=== PATIENT | female | born 1970 | race African-American/Black ===

== ENCOUNTER 2017-10-21 09:53 | Inpatient (IN) | payer MEDICAID, OTHER ==
[2017-10-21] VITALS (11 sets, daily range): BP systolic 117–174; BP diastolic 51–101
[~2017-10-21] VITALS: Ht 165.1 cm; Wt 72.6 kg
[2017-10-21] MEDS ORDERED: Glycopyrrolate 0.2mg/ml 1ml Vial ONE (10:30)
[2017-10-21] MEDS ORDERED: LR 1000ml ONE (10:30)
[2017-10-21] MEDS ORDERED: Ketorolac 30mg Inj IV ONE (10:30)
[2017-10-21] MEDS ORDERED: Neostigmine 1mg/ml 10ml Inj ONE (10:30)
[2017-10-21] MEDS ORDERED: NS Irrig 1000ml ONE (10:30)
[2017-10-21] MEDS ORDERED: Zemuron 50mg/5ml Inj IV ONE (10:30)
[2017-10-21] MEDS ORDERED: Sterile Water Irrig 1000ml IRRIG ONE (10:30)
--- NOTE | 2017-10-21 10:33 | Emergency Room Report ---
History of Present Illness General Chief Complaint: Abdominal Pain Source: Patient Present Illness HPI Patient presents with abdominal pain. She has not moved her bowels since Friday. On Friday she ate chicken which is off of her diet and then Friday she ate a cheeseburger. She's been attempting to avoid red meat and also chicken. She sometimes has difficulty moving her bowels. The last time she with her bowels on Friday and it was hard and bumpy. She denies any blood. She's felt fullness in discomfort and throughout her abdomen. It comes in waves with crampiness. She also feels thirsty at this time and dizzy when she stands up. Her maternal grandmother had diabetes. She's not been diagnosed. She is on control pills for irregular menses. Her last period was 2 months ago and was heavy. She doesn't believe she is at this time. She denies any vaginal bleeding. There is no dysuria at this time. She did not take any medication for her abdominal pain. No chest pain, dyspnea, headache, rashes, extremity pain. Allergies: Coded Allergies: No Known Allergies (Unverified , 01/11/15) Patient History Past Medical History: see triage record Past Surgical History: other - breast augmentation Social History: Denies: smoking, alcohol use Social History Narrative with her mom Last Menstrual Period: 2 months- on bcp Now: No Reviewed Nursing Documentation: PMH: Agreed; PSxH: Agreed Nursing Documentation-PMH Past Medical History: No History, Except For Hx Cardiac Problems: Yes - murmur Review of Systems All Other Systems: negative except mentioned in HPI Physical Exam Vital Signs Date Time Temp Pulse Resp B/P (MAP) Pulse Ox O2 Delivery O2 Flow Rate FiO2 10/21/17 10:00 98.5 81 18 137/87 98 Room Air 98.4 Sp02 EP Interpretation: reviewed, normal General Appearance: well appearing, no apparent distress, GCS 15 Head: normocephalic Eyes: bilateral eye normal inspection, bilateral eye PERRL ENT: moist mucus membranes Neck: supple Respiratory: lungs clear, normal breath sounds Cardiovascular #1: regular rate, rhythm Cardiovascular #2: 2+ radial (R) Gastrointestinal: normal inspection, normal bowel sounds, no mass, non- distended, no guarding, no rebound, tenderness - diffuse Musculoskeletal: back normal, gait/station normal, normal range of motion Neurologic: alert, oriented x3 Skin: normal inspection, warm/dry Medical Decision Making Diagnostic Impression: Primary Impression: Acute appendicitis Qualified Codes: K35.80 - Unspecified acute appendicitis Additional Impressions: Abdominal pain Qualified Codes: R10.30 - Lower abdominal pain, unspecified UTI (urinary tract infection) Qualified Codes: N30.00 - Acute cystitis without hematuria ER Course Patient presents with abdominal pain. Differential includes diverticulitis, dehydration, diabetes, urinary tract infection, constipation amongst others. Evaluation will be with labs and abdominal x-ray. The patient be treated with IV hydration, Zofran and Toradol. She may need to have an enema. Labs sig for elevated WBC, min elevated lipase and pyuria. Rocephin ordered. Xrays paucity of gas. Patient improved with less nausea. However, now with RLQ guarding. Needs CT abdomen/pelvis. CT signed out to Dr. Tavarez. According to Dr. Tavarez, CT with appendicitis. Admit med. Laboratory Tests Test 10/21/17 10:04 10/21/17 11:07 Urine Color Pale yellow Urine Appearance Clear Urine pH 5 (4.5-8.0) Urine Specific [place] 1.010 (1.005-1.035) Urine Protein Negative (NEGATIVE) Urine Glucose (UA) Negative (NEGATIVE) Urine Ketones Negative (NEGATIVE) Urine Occult Blood 2+ (NEGATIVE) H Urine Nitrite Negative (NEGATIVE) Urine Bilirubin Negative (NEGATIVE) Urine Urobilinogen Normal MG/DL (0.0-1.0) Urine Leukocyte Esterase 2+ (NEGATIVE) H Urine RBC 2-4 /HPF (0 - 2) H Urine WBC 5-10 /HPF (0 - 2) H Urine Squamous Epithelial Cells Few /LPF (NONE/OCC) Urine Bacteria Few /HPF (NONE) Urine HCG, Qualitative Negative (NEGATIVE) White Blood Count 12.7 K/UL (4.8-10.8) H Red Blood Count 5.11 M/UL (4.20-5.40) Hemoglobin 13.2 G/DL (12.0-16.0) Hematocrit 40.2 % (37.0-47.0) Mean Corpuscular Volume 79 FL (80-99) L Mean Corpuscular Hemoglobin 25.9 PG (27.0-31.0) L Mean Corpuscular Hemoglobin Concent 32.9 G/DL (32.0-36.0) Red Cell Distribution Width 12.9 % (11.6-14.8) Platelet Count 293 K/UL (150-450) Mean Platelet Volume 9.6 FL (6.5-10.1) Neutrophils (%) (Auto) % (45.0-75.0) Lymphocytes (%) (Auto) % (20.0-45.0) Monocytes (%) (Auto) % (1.0-10.0) Eosinophils (%) (Auto) % (0.0-3.0) Basophils (%) (Auto) % (0.0-2.0) Differential Total Cells Counted 100 Neutrophils % (Manual) 88 % (45-75) H Lymphocytes % (Manual) 8 % (20-45) L Monocytes % (Manual) 4 % (1-10) Eosinophils % (Manual) 0 % (0-3) Basophils % (Manual) 0 % (0-2) Band Neutrophils 0 % (0-8) Platelet Estimate Adequate Platelet Morphology Normal Microcytosis 1+ Prothrombin Time 9.9 SEC (9.30-11.50) Prothrombin Time INR 0.9 (0.9-1.1) PTT 25 SEC (23-33) Sodium Level 136 MMOL/L (136-145) Potassium Level 3.7 MMOL/L (3.5-5.1) Chloride Level 100 MMOL/L (98-107) Carbon Dioxide Level 26 MMOL/L (21-32) Anion Gap 10 mmol/L (5-15) Blood Urea Nitrogen 8 mg/dL (7-18) Creatinine 1.1 MG/DL (0.55-1.30) Estimate Glomerular Filtration Rate > 60 mL/min (>60) Glucose Level 99 MG/DL (74-106) Calcium Level 9.4 MG/DL (8.5-10.1) Total Bilirubin 0.5 MG/DL (0.2-1.0) Aspartate Amino Transferase (AST) 13 U/L (15-37) L Alanine Aminotransferase (ALT) 20 U/L (12-78) Alkaline Phosphatase 57 U/L (46-116) Total Protein 8.7 G/DL (6.4-8.2) H Albumin 3.8 G/DL (3.4-5.0) Globulin 4.9 g/dL Albumin/Globulin Ratio 0.8 (1.0-2.7) L Lipase 414 U/L (73-393) H Other X-Ray Diagnostic Results Other X-Ray Diagnostic Results : X-Ray ordered: abd # of Views/Limited Vs Complete: 1 View Indication: Pain EP Interpretation: Yes Interpretation: nonspecific bowel gas, no sbo, other - paucity of gas CT/MRI/US Diagnostic Results CT/MRI/US Diagnostic Results : Imaging Test Ordered: abd/pelvis Impression Impression: Positive for uncomplicated acute appendicitis Enlarged fibroid uterus Right-sided posterior basilar dependent atelectatic changes, bilateral breast implants are incidentally noted Status: improved Disposition: ADMITTED INPATIENT Condition: Serious Keon Farias M.D. Oct 21, 2017 10:33
[2017-10-21 10:36] LABS: APPEARANCE,URINE CLEAR; BILIRUBIN, URINE NEGATIVE (NEGATIVE); COLOR,URINE PALE YELLOW; GLUCOSE, URINE (UA) NEGATIVE (NEGATIVE); KETONES,URINE NEGATIVE (NEGATIVE); LEUKOCYTE ESTERASE ,URINE 2+ (NEGATIVE); NITRITE,URINE NEGATIVE (NEGATIVE); PH,URINE 5 (4.5-8.0); PROTEIN,URINE NEGATIVE (NEGATIVE); UROBILINOGEN,URINE NORMAL MG/DL (0.0-1.0)
[2017-10-21 11:14] LABS: HEMATOCRIT 40.2 % (37.0-47.0); HEMOGLOBIN 13.2 G/DL (12.0-16.0); MEAN CORPUSCULAR VOLUME 79 FL (80-99); PLATELET COUNT 293 K/UL (150-450); RED BLOOD COUNT 5.11 M/UL (4.20-5.40); RED CELL DISTRIBUTION WIDTH 12.9 % (11.6-14.8); WHITE BLOOD COUNT 12.7 K/UL (4.8-10.8)
[2017-10-21 11:28] LABS: ANION GAP 10 mmol/L (5-15); BLOOD UREA NITROGEN 8 mg/dL (7-18); CALCIUM 9.4 MG/DL (8.5-10.1); CARBON DIOXIDE 26 MMOL/L (21-32); CHLORIDE 100 MMOL/L (98-107); CREATININE 1.1 MG/DL (0.55-1.30); POTASSIUM 3.7 MMOL/L (3.5-5.1); SODIUM 136 MMOL/L (136-145)
[2017-10-21 11:30] LABS: INR 0.9 (0.9-1.1)
[2017-10-21 11:33] LABS: ALANINE AMINOTRANSFERASE 20 U/L (12-78); ALBUMIN 3.8 G/DL (3.4-5.0); ALBUMIN/GLOBULIN RATIO 0.8 (1.0-2.7); ALKALINE PHOSPHATASE 57 U/L (46-116); ASPARTATE AMINO TRANSFERASE 13 U/L (15-37); BILIRUBIN,TOTAL 0.5 MG/DL (0.2-1.0)
--- NOTE | 2017-10-21 11:38 | Diagnostic Imaging Report ---
Indication: Abdominal pain Technique: Supine view of the abdomen Comparison: none Findings: Evaluation is limited by body habitus, using portable technique. Bowel gas pattern is grossly unremarkable. Considerable gas and stool seen in prominent but not frankly dilated colon. No small bowel distention. No unusual masses or calcifications Impression: Limited. No gross acute abnormality
[2017-10-21] MEDS ORDERED: Gastrograffin 30ml ORAL PRN (13:15)
[2017-10-21] MEDS ORDERED: Isovue-300 100ml vial INJ PRN (13:15)
[2017-10-21] MEDS ORDERED: ONDANSETRON ODT4 MG BC (14:57)
[2017-10-21] MEDS ORDERED: NITROFURANTOIN100 M2 ORAL (14:57)
[2017-10-21] MEDS ORDERED: TYLENOL325 MG ORAL (14:57)
[2017-10-21] MEDS ORDERED: LACTULOSE20 GM/301 ORAL (14:57)
[2017-10-21] MEDS ORDERED: Piperacillin/Tazobactam 3.375 GM in NS 110 ML IVPB ONE (16:15)
--- NOTE | 2017-10-21 16:18 | Diagnostic Imaging Report ---
Clinical Indication: Abdominal pain Technique: Patient given oral contrast. IV administration nonionic contrast. Venous phase spiral acquisition obtained through the abdomen and pelvis. Multiplanar reconstructions were generated. Total dose length product 826.64 mGycm. CTDIvol(s) 14.36,13.24 mGy. Dose reduction achieved using automated exposure control Comparison: none Findings: There are bilateral breast implants. The lung bases demonstrate posterior dependent atelectatic changes on the right. The bones are unremarkable. The appendix is enlarged, filled with fluid, measures 12 mm in diameter. There is a with local infiltration of the periappendiceal fat. A small amount of fluid is seen adjacent to the proximal ascending colon. There is also trace free pelvic fluid. No discrete focal fluid collections and no extraluminal gas are evident. Contrast is seen throughout the entirety of the small bowel and well into the colon. There is no evidence of diverticulosis or diverticulitis. No small bowel distention or small bowel wall thickening. No free intraperitoneal air. The liver, gallbladder, bile ducts, pancreas, spleen, adrenals, kidneys are all unremarkable. No retroperitoneal or mesenteric mass or adenopathy. The uterus is enlarged, demonstrating multiple enhancing masses. The ovaries are unremarkable. The bladder is unremarkable. Impression: Positive for uncomplicated acute appendicitis Enlarged fibroid uterus Right-sided posterior basilar dependent atelectatic changes, bilateral breast implants are incidentally noted Findings discussed by phone with Dr. Tavarez in the emergency room at the time of interpretation The CT scanner at [facility] is accredited by the [employer] and the scans are performed using protocols designed to limit radiation exposure to as low as reasonably achievable to attain images of sufficient resolution adequate for diagnostic evaluation.
--- NOTE | 2017-10-21 17:43 | Pre-Procedure Note/Attestation ---
Pre-Procedure Note/Attestation Complete Prior to Procedure Planned Procedure: not applicable Procedure Narrative: Laparoscopic Appendectomy possible open Appendectomy Indications for Procedure Pre-Operative Diagnosis: Acute appendicitis Attestation I attest that I discussed the nature of the procedure; its benefits; risks and complications; and alternatives (and the risks and benefits of such alternatives ), prior to the procedure, with the patient (or the patient's legal home office representative). I attest that, if there was a reasonable possibility of needing a blood transfusion, the patient (or the patient's legal home office representative) was given the [facility] standardized written summary, pursuant to the [place] Keisha Blood Safety Act ([place] Health and Safety Code # 1645, as amended). I attest that I re-evaluated the patient just prior to the surgery and that there has been no change in the patient's H&P, except as documented below: Rajni Leone MD Oct 21, 2017 17:43
[2017-10-21] MEDS ORDERED: Bupivacaine 0.25% Inj 30ml INJ ONE (18:02)
[2017-10-21] MEDS ORDERED: Bacitracin 50000 Units Vial ONE (18:02)
[2017-10-21] MEDS ORDERED: Lidocaine 1% MPF 10mg/ml 5ml ONE ×2 (18:08→18:27)
[2017-10-21] MEDS ORDERED: Propofol 200mg/20ml IV ONE ×2 (18:08→18:27)
[2017-10-21] MEDS ORDERED: Dexamethasone 4mg/ml vial ONE ×2 (18:08→18:27)
[2017-10-21] MEDS ORDERED: Sodium Chloride 10ml vial INJ ONE ×2 (18:08→18:27)
[2017-10-21] MEDS ORDERED: LR 1000ml 1,000 ML IVLG SCH (18:10)
[2017-10-21] MEDS ORDERED: Metoclopramide 10mg/2ml Inj IVP PRN (18:15)
[2017-10-21] MEDS ORDERED: DiphenhydrAMINE 50mg/ml Inj IVP PRN (18:15)
[2017-10-21] MEDS ORDERED: HYDROcodone/Acetamin 7.5/325 tab ORAL PRN (18:15)
[2017-10-21] MEDS ORDERED: fentaNYL 100 mcg/2 mL IV PRN (18:15)
[2017-10-21] MEDS ORDERED: Atropine Inj 1mg/10ml Syr IV PRN (18:15)
[2017-10-21] MEDS ORDERED: oxyCODONE HCL/Acetaminophen 5/325mg ORAL PRN (18:15)
[2017-10-21] MEDS ORDERED: Ketorolac 30mg Inj IV PRN ×2 (18:15)
[2017-10-21] MEDS ORDERED: Acetaminophen (Non formulary) 100 ML IV ONE (18:15)
[2017-10-21] MEDS ORDERED: Midazolam 2mg/2ml Inj IVP PRN (18:15)
[2017-10-21] MEDS ORDERED: Norco 5mg/325mg tab ORAL PRN (18:15)
[2017-10-21] MEDS ORDERED: Labetalol 5mg/ml 20ml vial IV PRN (18:15)
[2017-10-21] MEDS ORDERED: Hydromorphone 0.5mg/0.5ml inj IVP PRN (18:15)
[2017-10-21] MEDS ORDERED: LORazepam Inj 2mg/ml 1ml IV PRN (18:15)
--- NOTE | 2017-10-21 18:17 | Anethesia Preoperative Eval ---
Anesthesia Pre-op PMH/ROS General Date of Evaluation: Oct 21, 2017 Time of Evaluation: 18:22 Anesthesiologist: Mone ASA Score: ASA 2 - Emergency Mallampati Score Class I : Soft palate, uvula, fauces, pillars visible Class II: Soft palate, uvula, fauces visible Class III: Soft palate, base of uvula visible Class IV: Only hard plate visible Mallampati Classification: Class I Surgeon: Sulema Diagnosis: Acute Appendicitis Surgical Procedure: Laparoscopic Appendectomy Anesthesia History: none Family History: no anesthesia problems Allergies: Coded Allergies: No Known Allergies (Unverified , 01/11/15) Medications: see eMAR Past Medical History Cardiovascular: Reports: HTN Other: obesity Anesthesia Pre-op Phys. Exam Physician Exam Last Vital Signs Date Time Temp Pulse Resp B/P (MAP) Pulse Ox O2 Delivery O2 Flow Rate FiO2 10/21/17 17:12 95 16 146/75 100 Room Air 10/21/17 11:33 98.5 Constitutional: NAD Neurologic: CN 2-12 intact Cardiovascular: RRR Respiratory: CTA Gastrointestinal: S/NT/ND Airway Exam Mallampati Score: Class I MO: full ROM: full Teeth: intact Anesthesia Pre-op A/P Labs Hematology Test 10/21/17 11:07 White Blood Count 12.7 K/UL (4.8-10.8) H Red Blood Count 5.11 M/UL (4.20-5.40) Hemoglobin 13.2 G/DL (12.0-16.0) Hematocrit 40.2 % (37.0-47.0) Mean Corpuscular Volume 79 FL (80-99) L Mean Corpuscular Hemoglobin 25.9 PG (27.0-31.0) L Mean Corpuscular Hemoglobin Concent 32.9 G/DL (32.0-36.0) Red Cell Distribution Width 12.9 % (11.6-14.8) Platelet Count 293 K/UL (150-450) Mean Platelet Volume 9.6 FL (6.5-10.1) Neutrophils (%) (Auto) % (45.0-75.0) Lymphocytes (%) (Auto) % (20.0-45.0) Monocytes (%) (Auto) % (1.0-10.0) Eosinophils (%) (Auto) % (0.0-3.0) Basophils (%) (Auto) % (0.0-2.0) Differential Total Cells Counted 100 Neutrophils % (Manual) 88 % (45-75) H Lymphocytes % (Manual) 8 % (20-45) L Monocytes % (Manual) 4 % (1-10) Eosinophils % (Manual) 0 % (0-3) Basophils % (Manual) 0 % (0-2) Band Neutrophils 0 % (0-8) Platelet Estimate Adequate Platelet Morphology Normal Microcytosis 1+ Coagulation Test 10/21/17 11:07 Prothrombin Time 9.9 SEC (9.30-11.50) Prothromb Time International Ratio 0.9 (0.9-1.1) Activated Partial Thromboplast Time 25 SEC (23-33) Chemistry Test 10/21/17 11:07 Sodium Level 136 MMOL/L (136-145) Potassium Level 3.7 MMOL/L (3.5-5.1) Chloride Level 100 MMOL/L (98-107) Carbon Dioxide Level 26 MMOL/L (21-32) Anion Gap 10 mmol/L (5-15) Blood Urea Nitrogen 8 mg/dL (7-18) Creatinine 1.1 MG/DL (0.55-1.30) Estimat Glomerular Filtration Rate > 60 mL/min (>60) Glucose Level 99 MG/DL (74-106) Calcium Level 9.4 MG/DL (8.5-10.1) Total Bilirubin 0.5 MG/DL (0.2-1.0) Aspartate Amino Transf (AST/SGOT) 13 U/L (15-37) L Alanine Aminotransferase (ALT/SGPT) 20 U/L (12-78) Alkaline Phosphatase 57 U/L (46-116) Total Protein 8.7 G/DL (6.4-8.2) H Albumin 3.8 G/DL (3.4-5.0) Globulin 4.9 g/dL Albumin/Globulin Ratio 0.8 (1.0-2.7) L Lipase 414 U/L (73-393) H Urine Test Test 10/21/17 10:04 Urine HCG, Qualitative Negative (NEGATIVE) Risk Assessment & Plan Assessment: ASA 2E Plan: GA, BIS, GlideScope Pre-Antibiotics Dru Gram Ancef IV Given Within 1 Hr of Incision: Yes Time Given: 18:36 Shore,Yanick MD Oct 21, 2017 18:17
--- NOTE | 2017-10-21 19:52 | Brief Operative Note ---
Immediate Post Operative Note Operative Note Pre-op Diagnosis: Acute appendicitis Procedure: Laparoscopic Appendectomy Post-op Diagnosis: Acute Appendicitis Post-op Diagnosis: same as pre-op Surgeon: Christina [facility] Family Social Worker: none Anesthesiologist: Dr. Moran Anesthesia: general Specimen: yes Complications: none Condition: stable Fluids: per anesthesialogist Estimated Blood Loss: minimal Drains: none Implant(s) used?: No Rajni Leone MD Oct 21, 2017 19:52
[2017-10-21] MEDS ORDERED: Acetaminophen 650 MG SUPP RECTAL PRN (20:00)
--- NOTE | 2017-10-21 20:04 | Immediate Post-Op Evaluation ---
Immediate Post-Op Evalulation Immediate Post-Op Evalulation Procedure: Laparoscopic Appendectomy Date of Evaluation: Oct 21, 2017 Time of Evaluation: 10:13 IV Fluids: 300 LR Blood Products: 0 Estimated Blood Loss: 20 Urinary Output: 0 Blood Pressure Systolic: 174 Blood Pressure Diastolic: 101 Pulse Rate: 69 Respiratory Rate: 16 O2 Sat by Pulse Oximetry: 100 Temperature (Fahrenheit): 97.2 Pain Score (1-10): 2 Nausea: No Vomiting: No Complications 0 Patient Status: awake, reacts, patent, extubated, none Hydration Status: adequate Dru Gram Ancef IV Given Within 1 Hr of Incision: Yes Time Given: 18:36 Yanick Shore MD Oct 21, 2017 20:04
[2017-10-21] MEDS: Morphine Sulfate 4mg/ml Inj IVP SCH (21:00)
[2017-10-21] MEDS: Metoclopramide 10mg/2ml Inj IVP SCH (21:30)
[2017-10-21] MEDS: D5 1/2NS w/KCl 20mEq 1,000 ML IV SCH (22:11)
--- NOTE | 2017-10-21 22:59 | Operative Note - Dictated ---
DATE OF OPERATION: 10/21/2017 PREOPERATIVE DIAGNOSIS: Acute appendicitis. POSTOPERATIVE DIAGNOSIS: Acute appendicitis. OPERATION: Laparoscopy appendectomy. COMPLICATIONS: None. SURGEON: Rajni Leone M.D. ROASTERMAN: None. ANESTHESIA: General with endotracheal tube. ANESTHESIOLOGIST: Yanick Shore M.D. INDICATION: This is a 47-year-old female, who presented with two days history of abdominal pain. She stated that the pain was initially periumbilical and then it localized at right lower quadrant. This pain was associated with nausea and vomiting. Physical examination showed tenderness, rebound tenderness, and guarding at the right lower quadrant. CBC showed a WBC of 12,700 with a left shift. CAT scan of the abdomen was interpreted as acute appendicitis. DESCRIPTION OF PROCEDURE: The patient was placed supine on the operating table and after general anesthesia with endotracheal tube, the abdomen was properly prepped and draped. Initially, a small incision was given above the umbilicus through which a Veress needle was introduced into the intraperitoneal cavity. This cavity was insufflated up to 15 mmHg and then the Veress needle was removed and a 5 mm trocar was placed in the intraperitoneal cavity through the incision above the umbilicus. The laparoscope and camera was introduced into the intraperitoneal cavity through the trocar above the umbilicus. Under direct vision, a 5 mm trocar was placed at the suprapubic area and a 12 mm trocar was placed at the left lower quadrant of the abdomen. Initially, rapid exploration was performed, which showed the diaphragms to be normal. The part of the stomach, which could be seen was normal. The liver and gallbladder was normal. The bowels were covered with omentum. The patient had a very large fibromatosis of uterus. Exploration of the right lower quadrant cavity was performed and finally, the appendix was identified, which was retrocecal and retroperitoneal. The appendix was severely inflamed. The appendix was grasped with a grasper and gradually the dissection was started, but the appendix was . Gradually, the mesoappendix was dissected and was ligated and transected with the OBI stapler. The part of the appendix was removed and it was noticed that it was too small and definitely some parts were left behind, so further exploration was performed and the stump of the appendix was identified and blunt dissection was performed and a large piece of the appendix was gradually dissected and isolated. Finally, at the base, it was transligated and transected with the OBI stapler. The appendix was removed from the intraperitoneal cavity through the incision at the left lower quadrant of the abdomen. After removal of the appendix, the intra-abdominal cavity especially the right lower quadrant and the pelvis was thoroughly irrigated with antibiotic solution. Another exploration was performed and there was no complication or bleeding. The trocars were removed under direct vision. The incisions were infiltrated with total of 30 mL of Marcaine 0.25%. The subcutaneous tissue was approximated with 4-0 chromic and the skin incisions were approximated with running subcuticular suture of 4-0 chromic. The patient tolerated the procedure very well and was transferred to recovery room in stable condition and extubated. The sponge and needle count correct. Estimated blood loss 5 mL. Condition of the patient at the end of the procedure was stable. Rajni Leone M.D. DR: WESTON JOB#: [id number] CC:
[2017-10-22] MEDS: Piperacillin/Tazobactam 3.375 GM in D5W 110 ML IVPB SCH ×3 (00:06→16:42)
[2017-10-22] MEDS: Morphine Sulfate 4mg/ml Inj IVP SCH ×6 (01:05→21:43)
[2017-10-22 04:00] VITALS: BP 135/81
[2017-10-22] MEDS: Metoclopramide 10mg/2ml Inj IVP SCH ×3 (05:36→21:39)
[2017-10-22 08:00] VITALS: BP 143/75
[2017-10-22 08:17] LABS: HEMATOCRIT 33.4 % (37.0-47.0); HEMOGLOBIN 10.7 G/DL (12.0-16.0); MEAN CORPUSCULAR VOLUME 81 FL (80-99); PLATELET COUNT 251 K/UL (150-450); RED BLOOD COUNT 4.14 M/UL (4.20-5.40)
[2017-10-22 08:35] LABS: ANION GAP 11 mmol/L (5-15); BLOOD UREA NITROGEN 7 mg/dL (7-18); CALCIUM 8.6 MG/DL (8.5-10.1); CARBON DIOXIDE 24 MMOL/L (21-32); CHLORIDE 103 MMOL/L (98-107); CREATININE 1.3 MG/DL (0.55-1.30); POTASSIUM 4.2 MMOL/L (3.5-5.1); SODIUM 137 MMOL/L (136-145)
--- NOTE | 2017-10-22 10:41 | GI Initial Consult Note ---
History of Present Illness General Date patient seen: Oct 22, 2017 Time patient seen: 10:00 Reason for Hospitalization: Abdominal Pain Referring physician: MISSY VANG Reason for Consultation: ABDOMINAL PAIN Present Illness HPI Patient presents with abdominal pain. She has not moved her bowels since Friday. On Friday she ate chicken which is off of her diet and then Friday she ate a cheeseburger. She's been attempting to avoid red meat and also chicken. She sometimes has difficulty moving her bowels. The last time she with her bowels on Friday and it was hard and bumpy. She denies any blood. She's felt fullness in discomfort and throughout her abdomen. It comes in waves with crampiness. She also feels thirsty at this time and dizzy when she stands up. Her maternal grandmother had diabetes. She's not been diagnosed. She is on control pills for irregular menses. Her last period was 2 months ago and was heavy. She doesn't believe she is at this time. She denies any vaginal bleeding. There is no dysuria at this time. She did not take any medication for her abdominal pain. No chest pain, dyspnea, headache, rashes, extremity pain. GI consulted for abdominal pain, post operative N/V, elevated lipase. Pt seen , awake A&Ox4 NAD c/o of slight pain 2/10 to surgical incision site. Now s/p lap appy. Denies any N/V/D at this time. On clear liquid diet, tolerating. Patient presents today with anemia and elevated lipase levels. No known history of endoscopy / colonoscopy. Med list reviewed/reconciled: Yes Allergies: Coded Allergies: No Known Allergies (Unverified , 01/11/15) Patient History History Provided By: Patient, Medical Record PMH Narrative Past Medical History: see triage record Past Surgical History: other - breast augmentation Social History: Denies: smoking, alcohol use Social History Narrative with her mom Last Menstrual Period: 2 months- on bcp Now: No Reviewed Nursing Documentation: PMH: Agreed; PSxH: Agreed Nursing Documentation-PM Past Medical History: No History, Except For Hx Cardiac Problems: Yes - murmur Social History: Reports: alcohol use Review of Systems All Other Systems: negative except mentioned in HPI Physical Exam Vital Signs Date Time Temp Pulse Resp B/P (MAP) Pulse Ox O2 Delivery O2 Flow Rate FiO2 10/21/17 10:00 98.5 81 18 137/87 98 Room Air 98.4 10/21/17 20:02 8.0 Sp02 EP Interpretation: reviewed, normal Labs Laboratory Tests Test 10/21/17 11:07 10/22/17 07:49 White Blood Count 12.7 K/UL (4.8-10.8) H 12.0 K/UL (4.8-10.8) H Red Blood Count 5.11 M/UL (4.20-5.40) 4.14 M/UL (4.20-5.40) L Hemoglobin 13.2 G/DL (12.0-16.0) 10.7 G/DL (12.0-16.0) L Hematocrit 40.2 % (37.0-47.0) 33.4 % (37.0-47.0) L Mean Corpuscular Volume 79 FL (80-99) L 81 FL (80-99) Mean Corpuscular Hemoglobin 25.9 PG (27.0-31.0) L 25.9 PG (27.0-31.0) L Mean Corpuscular Hemoglobin Concent 32.9 G/DL (32.0-36.0) 32.2 G/DL (32.0-36.0) Red Cell Distribution Width 12.9 % (11.6-14.8) 13.0 % (11.6-14.8) Platelet Count 293 K/UL (150-450) 251 K/UL (150-450) Mean Platelet Volume 9.6 FL (6.5-10.1) 9.8 FL (6.5-10.1) Neutrophils (%) (Auto) % (45.0-75.0) % (45.0-75.0) Lymphocytes (%) (Auto) % (20.0-45.0) % (20.0-45.0) Monocytes (%) (Auto) % (1.0-10.0) % (1.0-10.0) Eosinophils (%) (Auto) % (0.0-3.0) % (0.0-3.0) Basophils (%) (Auto) % (0.0-2.0) % (0.0-2.0) Differential Total Cells Counted 100 100 Neutrophils % (Manual) 88 % (45-75) H 89 % (45-75) H Lymphocytes % (Manual) 8 % (20-45) L 6 % (20-45) L Monocytes % (Manual) 4 % (1-10) 5 % (1-10) Eosinophils % (Manual) 0 % (0-3) 0 % (0-3) Basophils % (Manual) 0 % (0-2) 0 % (0-2) Band Neutrophils 0 % (0-8) 0 % (0-8) Platelet Estimate Adequate Adequate Platelet Morphology Normal Normal Microcytosis 1+ Prothrombin Time 9.9 SEC (9.30-11.50) Prothromb Time International Ratio 0.9 (0.9-1.1) Activated Partial Thromboplast Time 25 SEC (23-33) Sodium Level 136 MMOL/L (136-145) 137 MMOL/L (136-145) Potassium Level 3.7 MMOL/L (3.5-5.1) 4.2 MMOL/L (3.5-5.1) Chloride Level 100 MMOL/L (98-107) 103 MMOL/L (98-107) Carbon Dioxide Level 26 MMOL/L (21-32) 24 MMOL/L (21-32) Anion Gap 10 mmol/L (5-15) 11 mmol/L (5-15) Blood Urea Nitrogen 8 mg/dL (7-18) 7 mg/dL (7-18) Creatinine 1.1 MG/DL (0.55-1.30) 1.3 MG/DL (0.55-1.30) Estimat Glomerular Filtration Rate > 60 mL/min (>60) 52.8 mL/min (>60) Glucose Level 99 MG/DL (74-106) 162 MG/DL (74-106) H Calcium Level 9.4 MG/DL (8.5-10.1) 8.6 MG/DL (8.5-10.1) Total Bilirubin 0.5 MG/DL (0.2-1.0) Aspartate Amino Transf (AST/SGOT) 13 U/L (15-37) L Alanine Aminotransferase (ALT/SGPT) 20 U/L (12-78) Alkaline Phosphatase 57 U/L (46-116) Total Protein 8.7 G/DL (6.4-8.2) H Albumin 3.8 G/DL (3.4-5.0) Globulin 4.9 g/dL Albumin/Globulin Ratio 0.8 (1.0-2.7) L Lipase 414 U/L (73-393) H 182 U/L (73-393) Hypochromasia 1+ General Appearance: well appearing, no apparent distress, alert Head: normocephalic EENT: PERRL/EOMI, normal ENT inspection Neck: supple Respiratory: normal breath sounds, no respiratory distress Cardiovascular: normal rate Gastrointestinal: normal inspection, non tender, soft, normal bowel sounds, non -distended, other - surgical incision x 3 Rectal: deferred Genitourinary: no CVA tenderness Musculoskeletal: normal inspection, back normal Neurologic: normal inspection, alert, oriented x3, responsive Psychiatric: normal inspection, judgement/insight normal, memory normal Skin: normal inspection, normal color, no rash, warm/dry, palpation normal, well hydrated Lymphatic: normal inspection, no adenopathy Current Medications Current Medications Medications (Trade) Dose Ordered Sig/Janet Route PRN Reason Start Time Stop Time Status Last Admin Dose Admin Acetaminophen (Tylenol) 650 mg Q4H PRN RECTAL Mild Pain (Pain Scale 1-3) 10/21/17 20:00 11/20/17 19:59 Dextrose/ Electrolytes 1,000 ml @ 100 mls/hr Q10H IV 10/21/17 22:00 11/20/17 21:59 10/21/17 22:11 Diatrizoate Meglum/ Diatrizoate Sod (Gastrografin) 30 ml NOW PRN ORAL Radiology Procedure 10/21/17 13:15 Enoxaparin Sodium (Lovenox) 40 mg Q24H SUBQ 10/22/17 21:00 11/21/17 20:59 Metoclopramide HCl (Reglan) 10 mg EVERY 8 HOURS IVP 10/21/17 22:00 11/20/17 21:59 10/22/17 05:36 Morphine Sulfate (Morphine Sulfate) 4 mg EVERY 4 HOURS IVP 10/21/17 21:00 10/28/17 20:59 10/22/17 09:03 Piperacillin Sod/ Tazobactam Sod 3.375 gm/Dextrose 110 ml @ 27.5 mls/hr Q8H IVPB 10/22/17 00:00 10/29/17 00:00 10/22/17 09:03 GI: Plan Problems: (1) Anemia (2) Acute appendicitis (3) Abdominal pain Plan on clear liquid diet, tolerating no post operative N/V pain 2/10 at surgical sites, minimal drainage elevated lipase >> now normal symptomatic treatment diet per surgery anemia work up OB stool r/o GI bleed monitor H&H, prn transfusions bowel regime pain mgmt zofran prn dressing change prn ppi fu labs IS teaching recommend patient for initial colonoscopy next year at age 48 [address] Min. Thank you for this patient referral, we will follow. The patient was seen and examined at bedside and all new and available data was reviewed in the patients chart. I agree with the above findings, impression and plan. (Patient seen earlier today. Signature stamp does not reflect patient encounter time.). - MD Andie Aguayo AnhLeigh GAGE Oct 22, 2017 10:41
[2017-10-22 11:50] VITALS: BP 141/77
--- NOTE | 2017-10-22 13:10 | General Surgery Progress Note ---
General Surgery-Progress Note Subjective Procedure Performed Laparoscopic Appendectomy Symptoms: improved Objective Last 24 Hour Vital Signs Date Time Temp Pulse Resp B/P (MAP) Pulse Ox O2 Delivery O2 Flow Rate FiO2 10/22/17 11:50 97.4 62 20 141/77 99 Room Air 97.4 10/22/17 08:00 97.6 61 20 143/75 98 Room Air 97.6 10/22/17 04:00 97.8 77 18 135/81 96 Room Air 97.8 10/21/17 23:58 97.9 84 18 153/92 96 Room Air 97.9 10/21/17 21:10 98.1 76 17 150/88 99 Nasal Cannula 2.0 98.1 10/21/17 20:45 97.6 59 16 162/88 100 Nasal Cannula 2.0 97.6 10/21/17 20:39 57 16 166/89 100 Nasal Cannula 2.0 10/21/17 20:29 63 16 155/85 100 Nasal Cannula 2.0 10/21/17 20:12 63 16 148/85 100 Nasal Cannula 2.0 10/21/17 20:07 59 16 143/81 100 Simple Mask 8.0 10/21/17 20:04 207.0 69 16 100 10/21/17 20:02 97.2 70 16 174/101 100 Simple Mask 8.0 97.2 10/21/17 18:14 98.5 95 16 146/75 100 Room Air 98.5 10/21/17 17:12 95 16 146/75 100 Room Air I&O Intake and Output 10/21/17 10/22/17 19:00 07:00 Intake Total 1000 ml 810.0 ml Output Total 870 ml Balance 1000 ml -60.0 ml Intake Oral 0 ml 0 ml IV Total 1000 ml 810.0 ml Output Urine Total 850 ml Estimated Blood Loss 20 ml # Voids 1 Respiratory: clear Abdomen: soft, tenderness, absent bowel sounds Extremities: no tenderness Laboratory Tests Test 10/22/17 07:49 White Blood Count 12.0 K/UL (4.8-10.8) H Red Blood Count 4.14 M/UL (4.20-5.40) L Hemoglobin 10.7 G/DL (12.0-16.0) L Hematocrit 33.4 % (37.0-47.0) L Mean Corpuscular Volume 81 FL (80-99) Mean Corpuscular Hemoglobin 25.9 PG (27.0-31.0) L Mean Corpuscular Hemoglobin Concent 32.2 G/DL (32.0-36.0) Red Cell Distribution Width 13.0 % (11.6-14.8) Platelet Count 251 K/UL (150-450) Mean Platelet Volume 9.8 FL (6.5-10.1) Neutrophils (%) (Auto) % (45.0-75.0) Lymphocytes (%) (Auto) % (20.0-45.0) Monocytes (%) (Auto) % (1.0-10.0) Eosinophils (%) (Auto) % (0.0-3.0) Basophils (%) (Auto) % (0.0-2.0) Differential Total Cells Counted 100 Neutrophils % (Manual) 89 % (45-75) H Lymphocytes % (Manual) 6 % (20-45) L Monocytes % (Manual) 5 % (1-10) Eosinophils % (Manual) 0 % (0-3) Basophils % (Manual) 0 % (0-2) Band Neutrophils 0 % (0-8) Platelet Estimate Adequate Platelet Morphology Normal Hypochromasia 1+ Sodium Level 137 MMOL/L (136-145) Potassium Level 4.2 MMOL/L (3.5-5.1) Chloride Level 103 MMOL/L (98-107) Carbon Dioxide Level 24 MMOL/L (21-32) Anion Gap 11 mmol/L (5-15) Blood Urea Nitrogen 7 mg/dL (7-18) Creatinine 1.3 MG/DL (0.55-1.30) Estimat Glomerular Filtration Rate 52.8 mL/min (>60) Glucose Level 162 MG/DL (74-106) H Calcium Level 8.6 MG/DL (8.5-10.1) Lipase 182 U/L (73-393) Assessment Post-op Diagnosis Acute Appendicitis Plan Additional Comments continue current treatment Rajni Leone MD Oct 22, 2017 13:10
[2017-10-22] MEDS: Docusate Sod/Senna tab ORAL SCH ×2 (13:57→21:39)
--- NOTE | 2017-10-22 14:22 | 48 Hour Post Anesthesia Eval ---
Post Anesthesia Evaluation Procedure: Laparoscopic Appendectomy Date of Evaluation: Oct 22, 2017 Time of Evaluation: 14:21 Blood Pressure Systolic: 144 0: 74 Pulse Rate: 75 Respiratory Rate: 15 Temperature (Fahrenheit): 97.5 O2 Sat by Pulse Oximetry: 100 Airway: patent Nausea: No Vomiting: No Hydration Status: adequate Cardiopulmonary Status: stable Mental Status/LOC: patient returned to baseline Post-Anesthesia Complications: stable Follow-up care needed: N/A Thuy Ashraf CRNA Oct 22, 2017 14:22
[2017-10-22 16:00] VITALS: BP 135/81
--- NOTE | 2017-10-22 17:15 | Consultation ---
DATE OF CONSULTATION: 10/22/2017 INFECTIOUS DISEASE CONSULTATION CONSULTING PHYSICIAN: Bishnu Aceves M.D. PRIMARY ATTENDING PHYSICIAN: Rajni Leone M.D. REASON FOR CONSULTATION: Acute appendicitis. HISTORY OF PRESENT ILLNESS: This is a 47-year-old female admitted yesterday complaining of abdominal pain. The pain was periumbilical at the beginning that was localized to right lower quadrant. Mild leukocytosis. CT scan of the abdomen and pelvis showed acute appendicitis and the patient had laparoscopic appendectomy yesterday and today has no complaint, using clear-liquid diet. PAST MEDICAL HISTORY: Insignificant. MEDICATIONS: Enoxaparin, Zosyn, metoclopramide, morphine, Tylenol. ALLERGIES: No known drug allergies. SOCIAL HISTORY: Single. She has no child. No history of alcohol, drug abuse, or smoking. REVIEW OF SYSTEMS: She has no complaint today. Tolerating clear-liquid diet. PHYSICAL EXAMINATION: VITAL SIGNS: Temperature 97.4, pulse 62, blood pressure 141/77. GENERAL APPEARANCE: No acute distress. Awake, alert, well developed. HEAD AND NECK: [place] conjunctivae. No oral lesion. HEART: S1, S2. Regular. LUNGS: Clear. ABDOMEN: Soft, nontender. EXTREMITIES: She has no edema. LABORATORY AND DIAGNOSTIC DATA: WBC 4000, hemoglobin 10.7, hematocrit 33.4, platelets 251,000. Sodium 137, potassium 4.2, chloride 103, bicarbonate 24, BUN 7, creatinine 1.3, glucose 162. CT scan of the abdomen and pelvis showed acute appendicitis that was uncomplicated. UA showed wbc of 5 to 10. IMPRESSION: Acute appendicitis, status post laparoscopic appendectomy. RECOMMENDATION: Continue Zosyn . At the end of my exam, I thank Dr. Leone and Dr. Don for involving me in the care of this patient. Bishnu Aceves M.D. DR: Jason JOB#: [id number] CC:
[2017-10-22 20:18] VITALS: BP 127/69
[2017-10-22] MEDS: Enoxaparin 40mg Inj SUBQ SCH (21:40)
[2017-10-23] VITALS (9 sets, daily range): BP systolic 124–191; BP diastolic 72–108
[2017-10-23] MEDS: Piperacillin/Tazobactam 3.375 GM in D5W 110 ML IVPB SCH ×3 (00:17→15:49)
[2017-10-23] MEDS: Morphine Sulfate 4mg/ml Inj IVP SCH ×4 (00:54→09:00)
[2017-10-23] MEDS: Docusate Sod/Senna tab ORAL SCH ×5 (05:13→21:27)
[2017-10-23] MEDS: Metoclopramide 10mg/2ml Inj IVP SCH ×3 (05:14→21:21)
[2017-10-23 07:07] LABS: HEMATOCRIT 34.3 % (37.0-47.0); HEMOGLOBIN 11.7 G/DL (12.0-16.0); MEAN CORPUSCULAR VOLUME 80 FL (80-99); PLATELET COUNT 260 K/UL (150-450); RED CELL DISTRIBUTION WIDTH 12.7 % (11.6-14.8); WHITE BLOOD COUNT 13.2 K/UL (4.8-10.8)
[2017-10-23 07:23] LABS: ANION GAP 9 mmol/L (5-15); BLOOD UREA NITROGEN 10 mg/dL (7-18); CALCIUM 8.7 MG/DL (8.5-10.1); CARBON DIOXIDE 25 MMOL/L (21-32); CHLORIDE 101 MMOL/L (98-107); CREATININE 1.1 MG/DL (0.55-1.30); POTASSIUM 3.6 MMOL/L (3.5-5.1); SODIUM 135 MMOL/L (136-145)
[2017-10-23] MEDS ORDERED: HydrALAZINE 25mg tab ORAL SCH (10:30)
[2017-10-23] MEDS ORDERED: Morphine 5mg/2.5ml Oral Soln ORAL PRN (10:30)
[2017-10-23] MEDS ORDERED: Norco 5mg/325mg tab ORAL PRN (10:30)
--- NOTE | 2017-10-23 10:36 | Infectious Diseases Prog Note ---
Assessment/Plan Assessment/Plan A; Acute appendicitis s/p laparoscopic appendectomy HPN Nausea & Vomiting P: Continue Zosyn Will f/u KUB Subjective ROS Limited/Unobtainable: No Constitutional: Reports: no symptoms Gastrointestinal/Abdominal: Reports: nausea, vomiting, other - abdominal pain, no bowel movement Genitourinary: Reports: no symptoms Allergies: Coded Allergies: No Known Allergies (Unverified , 01/11/15) Objective Vital Signs Last 24 Hour Vital Signs Date Time Temp Pulse Resp B/P (MAP) Pulse Ox O2 Delivery O2 Flow Rate FiO2 10/23/17 10:24 181/107 10/23/17 05:47 98.6 10/23/17 04:00 98.5 72 17 177/99 95 Room Air 98.5 10/23/17 00:23 98.6 60 17 124/72 95 98.6 10/22/17 20:18 98.7 65 18 127/69 96 98.7 10/22/17 16:00 98.3 62 20 135/81 99 Room Air 98.3 10/22/17 14:23 207.5 75 15 100 10/22/17 11:50 97.4 62 20 141/77 99 Room Air 97.4 Height (Feet): 5 Height (Inches): 5.00 Weight (Pounds): 160 General Appearance: no acute distress HEENT: mucous membranes moist Respiratory/Chest: lungs clear Cardiovascular: normal rate Abdomen: other - mild tender in left side Neurologic/Psychiatric: alert, oriented x 3, responsive Laboratory Tests Test 10/23/17 06:35 White Blood Count 13.2 K/UL (4.8-10.8) H Red Blood Count 4.30 M/UL (4.20-5.40) Hemoglobin 11.7 G/DL (12.0-16.0) L Hematocrit 34.3 % (37.0-47.0) L Mean Corpuscular Volume 80 FL (80-99) Mean Corpuscular Hemoglobin 27.2 PG (27.0-31.0) Mean Corpuscular Hemoglobin Concent 34.1 G/DL (32.0-36.0) Red Cell Distribution Width 12.7 % (11.6-14.8) Platelet Count 260 K/UL (150-450) Mean Platelet Volume 9.8 FL (6.5-10.1) Neutrophils (%) (Auto) % (45.0-75.0) Lymphocytes (%) (Auto) % (20.0-45.0) Monocytes (%) (Auto) % (1.0-10.0) Eosinophils (%) (Auto) % (0.0-3.0) Basophils (%) (Auto) % (0.0-2.0) Differential Total Cells Counted 100 Neutrophils % (Manual) 84 % (45-75) H Lymphocytes % (Manual) 12 % (20-45) L Monocytes % (Manual) 4 % (1-10) Eosinophils % (Manual) 0 % (0-3) Basophils % (Manual) 0 % (0-2) Band Neutrophils 0 % (0-8) Platelet Estimate Adequate Platelet Morphology Normal Hypochromasia 1+ Sodium Level 135 MMOL/L (136-145) L Potassium Level 3.6 MMOL/L (3.5-5.1) Chloride Level 101 MMOL/L (98-107) Carbon Dioxide Level 25 MMOL/L (21-32) Anion Gap 9 mmol/L (5-15) Blood Urea Nitrogen 10 mg/dL (7-18) Creatinine 1.1 MG/DL (0.55-1.30) Estimat Glomerular Filtration Rate > 60 mL/min (>60) Glucose Level 115 MG/DL (74-106) H Calcium Level 8.7 MG/DL (8.5-10.1) Current Medications Medications (Trade) Dose Ordered Sig/Janet Route PRN Reason Start Time Stop Time Status Last Admin Dose Admin Acetaminophen (Tylenol) 650 mg Q4H PRN RECTAL Mild Pain (Pain Scale 1-3) 10/21/17 20:00 11/20/17 19:59 Acetaminophen/ Hydrocodone Bitart ([place] 5/325) 1 tab Q6H PRN ORAL Moderate Pain (Pain Scale 4-6) 10/23/17 10:30 10/30/17 10:29 Enoxaparin Sodium (Lovenox) 40 mg Q24H SUBQ 10/22/17 21:00 11/21/17 20:59 10/22/17 21:40 Hydralazine HCl (Apresoline) 25 mg ONCE ORAL 10/23/17 10:30 10/23/17 12:00 10/23/17 10:24 Metoclopramide HCl (Reglan) 10 mg EVERY 8 HOURS IVP 10/21/17 22:00 11/20/17 21:59 10/23/17 05:14 Morphine Sulfate (Morphine 5mg/ 2.5ml Oral Soln) 5 mg Q4H PRN ORAL Severe Pain (Pain Scale 7-10) 10/23/17 10:30 11/22/17 10:29 Ondansetron HCl (Zofran) 4 mg Q6H PRN IVP Nausea & Vomiting 10/22/17 16:00 11/21/17 15:59 10/23/17 09:44 Piperacillin Sod/ Tazobactam Sod 3.375 gm/Dextrose 110 ml @ 27.5 mls/hr Q8H IVPB 10/22/17 00:00 10/29/17 00:00 10/23/17 07:50 Senna/Docusate Sodium ([place]it[place]-Colace) 1 tab EVERY 8 HOURS ORAL 10/22/17 14:00 11/21/17 13:59 10/22/17 21:39 Bishnu Aceves MD Oct 23, 2017 10:36
--- NOTE | 2017-10-23 11:00 | Diagnostic Imaging Report ---
Indication: Abdominal pain Technique: Supine view of the abdomen Comparison: Since 10/05/2017 Findings: Contrast from prior CT scan is seen within the ascending colon. The colon is diffusely gas-filled but nondistended to the level of the splenic flexure. No small bowel gas is demonstrated. There are now surgical clips in the right lower quadrant. Impression: No acute abnormality Evidence of interim surgery
--- NOTE | 2017-10-23 11:45 | GI Progress Note ---
Assessment/Plan Problems: (1) Post-operative nausea and vomiting ICD Codes: R11.2 - Nausea with vomiting, unspecified; Z98.890 - Other specified postprocedural states SNOMED: 6488635 (2) Abdominal pain ICD Codes: R10.9 - Unspecified abdominal pain SNOMED: 56607312 Qualifiers: Qualified Codes: R10.30 - Lower abdominal pain, unspecified (3) Anemia ICD Codes: D64.9 - Anemia, unspecified SNOMED: 419859077 (4) Acute appendicitis ICD Codes: K35.80 - Unspecified acute appendicitis SNOMED: 46719211 Qualifiers: Qualified Codes: K35.80 - Unspecified acute appendicitis Status: unchanged Status Narrative Discussed with Dr. Min. Assessment/Plan on clear liquid diet, tolerating no post operative Nausea without vomiting pain 2/10 at surgical sites, minimal drainage elevated lipase >> now normal distended abdomen >> not passing gas KUB ordered/reviewed >> no abnormality resume diet hydralazine prn diet per surgery anemia work up OB stool r/o GI bleed monitor H&H, prn transfusions bowel regime pain mgmt zofran prn dressing change prn ppi fu labs IS teaching recommend patient for initial colonoscopy next year at age 48 The patient was seen and examined at bedside and all new and available data was reviewed in the patients chart. I agree with the above findings, impression and plan. (Patient seen earlier today. Signature stamp does not reflect patient encounter time.). - Son Min MD Subjective Subjective 3/10 abdominal pain Objective Last 24 Hour Vital Signs Date Time Temp Pulse Resp B/P (MAP) Pulse Ox O2 Delivery O2 Flow Rate FiO2 10/23/17 10:24 181/107 10/23/17 08:00 98.5 75 20 181/107 95 Room Air 98.5 10/23/17 05:47 98.6 10/23/17 04:00 98.5 72 17 177/99 95 Room Air 98.5 10/23/17 00:23 98.6 60 17 124/72 95 98.6 10/22/17 20:18 98.7 65 18 127/69 96 98.7 10/22/17 16:00 98.3 62 20 135/81 99 Room Air 98.3 10/22/17 14:23 207.5 75 15 100 10/22/17 11:50 97.4 62 20 141/77 99 Room Air 97.4 Intake and Output 10/22/17 10/23/17 19:00 07:00 Intake Total 1040 ml Balance 1040 ml Intake Oral 940 ml IV Total 100 ml # Voids 2 Laboratory Tests Test 10/23/17 06:35 White Blood Count 13.2 K/UL (4.8-10.8) H Red Blood Count 4.30 M/UL (4.20-5.40) Hemoglobin 11.7 G/DL (12.0-16.0) L Hematocrit 34.3 % (37.0-47.0) L Mean Corpuscular Volume 80 FL (80-99) Mean Corpuscular Hemoglobin 27.2 PG (27.0-31.0) Mean Corpuscular Hemoglobin Concent 34.1 G/DL (32.0-36.0) Red Cell Distribution Width 12.7 % (11.6-14.8) Platelet Count 260 K/UL (150-450) Mean Platelet Volume 9.8 FL (6.5-10.1) Neutrophils (%) (Auto) % (45.0-75.0) Lymphocytes (%) (Auto) % (20.0-45.0) Monocytes (%) (Auto) % (1.0-10.0) Eosinophils (%) (Auto) % (0.0-3.0) Basophils (%) (Auto) % (0.0-2.0) Differential Total Cells Counted 100 Neutrophils % (Manual) 84 % (45-75) H Lymphocytes % (Manual) 12 % (20-45) L Monocytes % (Manual) 4 % (1-10) Eosinophils % (Manual) 0 % (0-3) Basophils % (Manual) 0 % (0-2) Band Neutrophils 0 % (0-8) Platelet Estimate Adequate Platelet Morphology Normal Hypochromasia 1+ Sodium Level 135 MMOL/L (136-145) L Potassium Level 3.6 MMOL/L (3.5-5.1) Chloride Level 101 MMOL/L (98-107) Carbon Dioxide Level 25 MMOL/L (21-32) Anion Gap 9 mmol/L (5-15) Blood Urea Nitrogen 10 mg/dL (7-18) Creatinine 1.1 MG/DL (0.55-1.30) Estimat Glomerular Filtration Rate > 60 mL/min (>60) Glucose Level 115 MG/DL (74-106) H Calcium Level 8.7 MG/DL (8.5-10.1) Height (Feet): 5 Height (Inches): 5.00 Weight (Pounds): 160 General Appearance: WD/WN, no apparent distress, alert Cardiovascular: normal rate Respiratory/Chest: normal breath sounds, no respiratory distress Abdominal Exam: normal bowel sounds, non tender, soft, incision site Extremities: non-tender Simon Chaves NP Oct 23, 2017 11:45
--- NOTE | 2017-10-23 11:56 | Consultation ---
Consult Note Consult Note asked to manage HTN and electrolyte abnormalities Patient presents with abdominal pain. She has not moved her bowels since Friday. On Friday she ate chicken which is off of her diet and then Friday she ate a cheeseburger. She's been attempting to avoid red meat and also chicken. She sometimes has difficulty moving her bowels. The last time she with her bowels on Friday and it was hard and bumpy. She denies any blood. She's felt fullness in discomfort and throughout her abdomen. It comes in waves with crampiness. She also feels thirsty at this time and dizzy when she stands up. Her maternal grandmother had diabetes. She's not been diagnosed. She is on control pills for irregular menses. Her last period was 2 months ago and was heavy. She doesn't believe she is at this time. She denies any vaginal bleeding. There is no dysuria at this time. She did not take any medication for her abdominal pain. No chest pain, dyspnea, headache, rashes, extremity pain. diagnosed with acute appendicitis had surgery currently has nausea Assessment/Plan HTN Post op appendicitis JASMIN Dickens and MS start Dilaudid IV for pain IV protonix slow hydrate per orders ANSELMO WATKINS Oct 23, 2017 11:56
[2017-10-23] MEDS: HydrALAZINE 25mg tab ORAL SCH ×2 (12:00→17:07)
[2017-10-23] MEDS ORDERED: Pantoprazole Inj IVP SCH (12:00)
[2017-10-23] MEDS: D5NS 1,000 ML IV SCH (12:47)
--- NOTE | 2017-10-23 15:25 | General Surgery Progress Note ---
General Surgery-Progress Note Subjective Procedure Performed Laparoscopic Appendectomy Objective Last 24 Hour Vital Signs Date Time Temp Pulse Resp B/P (MAP) Pulse Ox O2 Delivery O2 Flow Rate FiO2 10/23/17 14:59 189/106 10/23/17 14:50 98.7 84 20 189/106 97 Room Air 98.7 10/23/17 11:58 99.1 77 20 142/82 96 Room Air 99.1 10/23/17 10:24 181/107 10/23/17 08:00 98.5 75 20 181/107 95 Room Air 98.5 10/23/17 05:47 98.6 10/23/17 04:00 98.5 72 17 177/99 95 Room Air 98.5 10/23/17 00:23 98.6 60 17 124/72 95 98.6 10/22/17 20:18 98.7 65 18 127/69 96 98.7 10/22/17 16:00 98.3 62 20 135/81 99 Room Air 98.3 I&O Intake and Output 10/22/17 10/23/17 19:00 07:00 Intake Total 1040 ml Balance 1040 ml Intake Oral 940 ml IV Total 100 ml # Voids 2 Drains: none Respiratory: clear Abdomen: soft, scaphoid, non-tender, absent bowel sounds Extremities: no tenderness Laboratory Tests Test 10/23/17 06:35 White Blood Count 13.2 K/UL (4.8-10.8) H Red Blood Count 4.30 M/UL (4.20-5.40) Hemoglobin 11.7 G/DL (12.0-16.0) L Hematocrit 34.3 % (37.0-47.0) L Mean Corpuscular Volume 80 FL (80-99) Mean Corpuscular Hemoglobin 27.2 PG (27.0-31.0) Mean Corpuscular Hemoglobin Concent 34.1 G/DL (32.0-36.0) Red Cell Distribution Width 12.7 % (11.6-14.8) Platelet Count 260 K/UL (150-450) Mean Platelet Volume 9.8 FL (6.5-10.1) Neutrophils (%) (Auto) % (45.0-75.0) Lymphocytes (%) (Auto) % (20.0-45.0) Monocytes (%) (Auto) % (1.0-10.0) Eosinophils (%) (Auto) % (0.0-3.0) Basophils (%) (Auto) % (0.0-2.0) Differential Total Cells Counted 100 Neutrophils % (Manual) 84 % (45-75) H Lymphocytes % (Manual) 12 % (20-45) L Monocytes % (Manual) 4 % (1-10) Eosinophils % (Manual) 0 % (0-3) Basophils % (Manual) 0 % (0-2) Band Neutrophils 0 % (0-8) Platelet Estimate Adequate Platelet Morphology Normal Hypochromasia 1+ Sodium Level 135 MMOL/L (136-145) L Potassium Level 3.6 MMOL/L (3.5-5.1) Chloride Level 101 MMOL/L (98-107) Carbon Dioxide Level 25 MMOL/L (21-32) Anion Gap 9 mmol/L (5-15) Blood Urea Nitrogen 10 mg/dL (7-18) Creatinine 1.1 MG/DL (0.55-1.30) Estimat Glomerular Filtration Rate > 60 mL/min (>60) Glucose Level 115 MG/DL (74-106) H Calcium Level 8.7 MG/DL (8.5-10.1) C-Reactive Protein, Quantitative 7.0 mg/dL (0.00-0.90) H Assessment Post-op Diagnosis Acute Appendicitis Plan Additional Comments continue current treatment Rajni Leone MD Oct 23, 2017 15:24
--- NOTE | 2017-10-23 16:15 | History and Physical Report ---
DATE OF ADMISSION: 10/21/2017 NOTE: POOR AUDIO QUALITY HISTORY OF PRESENT ILLNESS: The patient is admitted had an emergent appendectomy by Dr. Leone, taken to the OR from the ER. The patient complained of vomiting and abdominal pain for 2 days associated with chills and fatigue and is admitted to [facility] for appendectomy. PAST MEDICAL HISTORY: Anemia. PAST SURGICAL HISTORY: Breast augmentation and D & C. SOCIAL HISTORY: History of smoking, history of drug abuse. MEDICATIONS: None. FAMILY HISTORY: Noncontributory. REVIEW OF SYSTEMS: HEENT: Denies headaches. RESPIRATORY: Denies shortness of breath. Denies cough. CARDIOVASCULAR: Denies chest pain. No orthopnea. GASTROINTESTINAL: Reports vomiting and abdominal pain for 2 days associated with fatigue and chills. Denies rectal bleeding. EXTREMITIES: Denies pain in lower extremities. NEUROLOGIC: Denies change in vision or speech pattern. PHYSICAL EXAMINATION: VITAL SIGNS: Temperature 97.8 degrees, pulse is 77, and blood pressure 135/81. HEENT: PERRLA. NECK: Supple. No lymphadenopathy. CHEST: Clear to auscultation. GASTROINTESTINAL: Tender in the surgical site. No drainage. Abdomen is soft. Positive bowel sounds. EXTREMITIES: No edema. NEUROLOGIC: Reflexes are equal on both sides. Moves all four extremities. Oriented x3. LABORATORY AND DIAGNOSTIC DATA: WBC initially was , hemoglobin 13.2, and platelet of 293. Sodium 133, potassium 3.7, BUN of 8, and creatinine 1.1. ASSESSMENT AND PLAN: Appendicitis, status post appendectomy. Dr. Leone abdominal pain and appendicitis management. Antibiotics per Dr. Bishnu Aceves. Josseline Don M.D. DR: DEMETRIUS JOB#: [id number] CC:
[2017-10-23] MEDS: Pantoprazole Inj IVP SCH (20:59)
[2017-10-23] MEDS: Enoxaparin 40mg Inj SUBQ SCH (21:01)
[2017-10-23] MEDS: Hydromorphone 0.5mg/0.5ml inj IVP PRN (21:25)
--- NOTE | 2017-10-23 21:30 | General Progress Note ---
Assessment/Plan Problem List: (1) Abdominal pain ICD Codes: R10.9 - Unspecified abdominal pain SNOMED: 35997119 Qualifiers: Qualified Codes: R10.30 - Lower abdominal pain, unspecified (2) Acute appendicitis ICD Codes: K35.80 - Unspecified acute appendicitis SNOMED: 86043006 Qualifiers: Qualified Codes: K35.80 - Unspecified acute appendicitis (3) Post-operative nausea and vomiting ICD Codes: R11.2 - Nausea with vomiting, unspecified; Z98.890 - Other specified postprocedural states SNOMED: 6563112 Status: progressing Assessment/Plan s/p appendectomy elevated bp htn started bp meds Subjective Gastrointestinal/Abdominal: Reports: abdominal pain Allergies: Coded Allergies: No Known Allergies (Unverified , 01/11/15) Objective Last 24 Hour Vital Signs Date Time Temp Pulse Resp B/P (MAP) Pulse Ox O2 Delivery O2 Flow Rate FiO2 10/23/17 20:49 84 181/108 10/23/17 19:11 193/111 10/23/17 17:07 173/99 10/23/17 16:00 98.8 77 20 173/99 96 Room Air 98.8 10/23/17 14:59 189/106 10/23/17 14:50 98.7 84 20 189/106 97 Room Air 98.7 10/23/17 11:58 99.1 77 20 142/82 96 Room Air 99.1 10/23/17 10:24 181/107 10/23/17 08:00 98.5 75 20 181/107 95 Room Air 98.5 10/23/17 05:47 98.6 10/23/17 04:00 98.5 72 17 177/99 95 Room Air 98.5 10/23/17 00:23 98.6 60 17 124/72 95 98.6 Intake and Output 10/22/17 10/23/17 19:00 07:00 Intake Total 1040 ml Balance 1040 ml Intake Oral 940 ml IV Total 100 ml # Voids 2 Laboratory Tests 10/23/17 06:35: White Blood Count 13.2H, Red Blood Count 4.30, Hemoglobin 11.7L, Hematocrit 34.3L, Mean Corpuscular Volume 80, Mean Corpuscular Hemoglobin 27.2, Mean Corpuscular Hemoglobin Concent 34.1, Red Cell Distribution Width 12.7, Platelet Count 260, Mean Platelet Volume 9.8, Neutrophils (%) (Auto) , Lymphocytes (%) ( Auto) , Monocytes (%) (Auto) , Eosinophils (%) (Auto) , Basophils (%) (Auto) , Differential Total Cells Counted 100, Neutrophils % (Manual) 84H, Lymphocytes % (Manual) 12L, Monocytes % (Manual) 4, Eosinophils % (Manual) 0, Basophils % ( Manual) 0, Band Neutrophils 0, Platelet Estimate Adequate, Platelet Morphology Normal, Hypochromasia 1+, Sodium Level 135L, Potassium Level 3.6, Chloride Level 101, Carbon Dioxide Level 25, Anion Gap 9, Blood Urea Nitrogen 10, Creatinine 1.1, Estimat Glomerular Filtration Rate > 60, Glucose Level 115H, Calcium Level 8.7, C-Reactive Protein, Quantitative 7.0H Height (Feet): 5 Height (Inches): 5.00 Weight (Pounds): 160 Cardiovascular: normal rate Respiratory/Chest: lungs clear Abdomen: soft, tender Josseline Don MD Oct 23, 2017 21:30
[2017-10-23] MEDS: Lisinopril 2.5mg tab ORAL SCH (21:50)
[2017-10-23] MEDS: HydrALAZINE 50mg tab ORAL SCH (22:50)
[2017-10-24] VITALS (10 sets, daily range): BP systolic 127–197; BP diastolic 85–112
[2017-10-24] MEDS: Piperacillin/Tazobactam 3.375 GM in D5W 110 ML IVPB SCH ×3 (00:32→16:00)
[2017-10-24] MEDS: Hydromorphone 0.5mg/0.5ml inj IVP PRN ×5 (02:50→20:49)
[2017-10-24] MEDS: HydrALAZINE 50mg tab ORAL SCH ×3 (05:22→22:19)
[2017-10-24] MEDS: Docusate Sod/Senna tab ORAL SCH ×3 (05:22→22:16)
[2017-10-24] MEDS: Metoclopramide 10mg/2ml Inj IVP SCH ×4 (05:22→22:16)
[2017-10-24] MEDS: D5NS 1,000 ML IV SCH (07:41)
[2017-10-24] MEDS: Pantoprazole Inj IVP SCH ×2 (08:42→21:02)
[2017-10-24] MEDS: Lisinopril 2.5mg tab ORAL SCH (08:42)
[2017-10-24] MEDS ORDERED: Tubing IV Secondary IV ONE (09:40)
[2017-10-24 10:05] LABS: BASOPHILS % (AUTO) 0.6 % (0.0-2.0); HEMATOCRIT 37.6 % (37.0-47.0); HEMOGLOBIN 12.7 G/DL (12.0-16.0); LYMPHOCYTES % (AUTO) 9.4 % (20.0-45.0); MEAN CORPUSCULAR VOLUME 80 FL (80-99); MONOCYTES % (AUTO) 5.4 % (1.0-10.0); NEUTROPHILS % (AUTO) 84.7 % (45.0-75.0); PLATELET COUNT 292 K/UL (150-450); RED BLOOD COUNT 4.73 M/UL (4.20-5.40); RED CELL DISTRIBUTION WIDTH 12.8 % (11.6-14.8); WHITE BLOOD COUNT 14.8 K/UL (4.8-10.8)
[2017-10-24 10:38] LABS: ALANINE AMINOTRANSFERASE 14 U/L (12-78); ALBUMIN 2.9 G/DL (3.4-5.0); ALBUMIN/GLOBULIN RATIO 0.7 (1.0-2.7); ALKALINE PHOSPHATASE 45 U/L (46-116); ANION GAP 10 mmol/L (5-15); ASPARTATE AMINO TRANSFERASE 10 U/L (15-37); BILIRUBIN,TOTAL 0.4 MG/DL (0.2-1.0); BLOOD UREA NITROGEN 11 mg/dL (7-18); CALCIUM 8.6 MG/DL (8.5-10.1); CARBON DIOXIDE 25 MMOL/L (21-32); CHLORIDE 97 MMOL/L (98-107); CHOLESTEROL 193 MG/DL (< 200); CREATININE 0.9 MG/DL (0.55-1.30); HDL CHOLESTEROL 74 MG/DL (40-60); PHOSPHORUS 2.6 MG/DL (2.5-4.9); POTASSIUM 3.2 MMOL/L (3.5-5.1); SODIUM 132 MMOL/L (136-145); TRIGLYCERIDES 68 MG/DL (30-150)
--- NOTE | 2017-10-24 11:39 | Infectious Diseases Prog Note ---
Assessment/Plan Assessment/Plan A; Acute appendicitis s/p laparoscopic appendectomy HPN Nausea & Vomiting P: Continue Zosyn Subjective ROS Limited/Unobtainable: No Constitutional: Reports: no symptoms Respiratory: Reports: no symptoms Gastrointestinal/Abdominal: Reports: nausea, other - pain is controlled, no bowel movement Genitourinary: Reports: no symptoms Allergies: Coded Allergies: No Known Allergies (Unverified , 01/11/15) Objective Vital Signs Last 24 Hour Vital Signs Date Time Temp Pulse Resp B/P (MAP) Pulse Ox O2 Delivery O2 Flow Rate FiO2 10/24/17 08:42 149/88 10/24/17 08:42 77 149/88 10/24/17 07:57 97.7 77 18 149/88 95 Room Air 97.7 10/24/17 06:17 85 127/85 10/24/17 05:22 142/90 10/24/17 04:30 97.0 73 142/90 97.0 10/24/17 02:50 98.5 10/24/17 01:40 75 162/94 10/24/17 01:00 160/110 10/24/17 01:00 160/98 10/24/17 00:47 168/97 10/24/17 00:30 168/97 10/24/17 00:30 197/112 10/24/17 00:30 159/106 10/23/17 22:50 161/93 10/23/17 22:50 161/93 10/23/17 21:50 160/95 10/23/17 21:46 160/95 10/23/17 20:49 84 181/108 10/23/17 20:00 98.5 83 17 191/108 97 Room Air 98.5 10/23/17 19:11 193/111 10/23/17 17:07 173/99 10/23/17 16:00 98.8 77 20 173/99 96 Room Air 98.8 10/23/17 14:59 189/106 10/23/17 14:50 98.7 84 20 189/106 97 Room Air 98.7 10/23/17 11:58 99.1 77 20 142/82 96 Room Air 99.1 Height (Feet): 5 Height (Inches): 5.00 Weight (Pounds): 160 General Appearance: no acute distress HEENT: mucous membranes moist Respiratory/Chest: lungs clear Cardiovascular: normal rate Abdomen: soft, non tender Extremities: no edema Neurologic/Psychiatric: alert, oriented x 3, responsive Laboratory Tests Test 10/24/17 07:11 White Blood Count 14.8 K/UL (4.8-10.8) H Red Blood Count 4.73 M/UL (4.20-5.40) Hemoglobin 12.7 G/DL (12.0-16.0) Hematocrit 37.6 % (37.0-47.0) Mean Corpuscular Volume 80 FL (80-99) Mean Corpuscular Hemoglobin 26.8 PG (27.0-31.0) L Mean Corpuscular Hemoglobin Concent 33.7 G/DL (32.0-36.0) Red Cell Distribution Width 12.8 % (11.6-14.8) Platelet Count 292 K/UL (150-450) Mean Platelet Volume 9.9 FL (6.5-10.1) Neutrophils (%) (Auto) 84.7 % (45.0-75.0) H Lymphocytes (%) (Auto) 9.4 % (20.0-45.0) L Monocytes (%) (Auto) 5.4 % (1.0-10.0) Eosinophils (%) (Auto) 0.0 % (0.0-3.0) Basophils (%) (Auto) 0.6 % (0.0-2.0) Sodium Level 132 MMOL/L (136-145) L Potassium Level 3.2 MMOL/L (3.5-5.1) L Chloride Level 97 MMOL/L (98-107) L Carbon Dioxide Level 25 MMOL/L (21-32) Anion Gap 10 mmol/L (5-15) Blood Urea Nitrogen 11 mg/dL (7-18) Creatinine 0.9 MG/DL (0.55-1.30) Estimat Glomerular Filtration Rate > 60 mL/min (>60) Glucose Level 109 MG/DL (74-106) H Uric Acid 2.3 MG/DL (2.6-7.2) L Calcium Level 8.6 MG/DL (8.5-10.1) Phosphorus Level 2.6 MG/DL (2.5-4.9) Magnesium Level 2.0 MG/DL (1.8-2.4) Total Bilirubin 0.4 MG/DL (0.2-1.0) Aspartate Amino Transf (AST/SGOT) 10 U/L (15-37) L Alanine Aminotransferase (ALT/SGPT) 14 U/L (12-78) Alkaline Phosphatase 45 U/L (46-116) L Pro-B-Type Natriuretic Peptide 1199 pg/mL (0-125) H Total Protein 7.2 G/DL (6.4-8.2) Albumin 2.9 G/DL (3.4-5.0) L Globulin 4.3 g/dL Albumin/Globulin Ratio 0.7 (1.0-2.7) L Triglycerides Level 68 MG/DL (30-150) Cholesterol Level 193 MG/DL (< 200) LDL Cholesterol 107 mg/dL (<100) H HDL Cholesterol 74 MG/DL (40-60) H Cholesterol/HDL Ratio 2.6 (3.3-4.4) L Lipase 430 U/L (73-393) H Current Medications Medications (Trade) Dose Ordered Sig/Janet Route PRN Reason Start Time Stop Time Status Last Admin Dose Admin Acetaminophen (Tylenol) 650 mg Q4H PRN RECTAL Mild Pain (Pain Scale 1-3) 10/21/17 20:00 11/20/17 19:59 Amlodipine Besylate (Norvasc) 10 mg DAILY ORAL 10/24/17 09:00 11/23/17 08:59 10/24/17 08:42 Clonidine HCl (Catapres Tab) 0.1 mg Q4H PRN ORAL bp over 160 when in no pain 10/23/17 12:00 11/22/17 11:59 10/24/17 00:47 Dextrose/Sodium Chloride 1,000 ml @ 50 mls/hr Q20H IV 10/23/17 12:00 11/22/17 11:59 10/23/17 12:47 Enoxaparin Sodium (Lovenox) 40 mg Q24H SUBQ 10/22/17 21:00 11/21/17 20:59 10/23/17 21:01 Hydralazine HCl (Apresoline) 50 mg Q8HR ORAL 10/23/17 22:00 11/22/17 11:59 10/24/17 05:22 Hydromorphone HCl (Dilaudid) 0.5 mg Q4H PRN IVP PAIN>5 10/23/17 12:00 10/30/17 11:59 10/24/17 07:41 Lisinopril (Zestril) 5 mg Q12HR ORAL 10/23/17 21:00 11/22/17 20:59 10/24/17 08:42 Metoclopramide HCl (Reglan) 10 mg EVERY 8 HOURS IVP 10/21/17 22:00 11/20/17 21:59 10/24/17 05:22 Ondansetron HCl (Zofran) 4 mg Q6H PRN IVP Nausea & Vomiting 10/22/17 16:00 11/21/17 15:59 10/23/17 09:44 Pantoprazole (Protonix) 40 mg EVERY 12 HOURS IVP 10/23/17 21:00 11/22/17 20:59 10/24/17 08:42 Piperacillin Sod/ Tazobactam Sod 3.375 gm/Dextrose 110 ml @ 27.5 mls/hr Q8H IVPB 10/22/17 00:00 10/29/17 00:00 10/24/17 07:40 Senna/Docusate Sodium (Maritza-Colace) 1 tab EVERY 8 HOURS ORAL 10/22/17 14:00 11/21/17 13:59 10/24/17 05:22 Bishnu Aceves MD Oct 24, 2017 11:39
--- NOTE | 2017-10-24 13:10 | Nephrology Progress Note ---
Assessment/Plan Problem List: (1) Acute appendicitis (2) UTI (urinary tract infection) (3) Post-operative nausea and vomiting (4) Hypertension Assessment HTN ooc Post op appendicitis electrolyte abnormalities High Lipase Plan IV KCL Dilaudid IV for pain IV protonix hydralazine, norvasc, lisinopril for pain per orders per consultants Objective Objective Last 24 Hour Vital Signs Date Time Temp Pulse Resp B/P (MAP) Pulse Ox O2 Delivery O2 Flow Rate FiO2 10/24/17 12:00 97.9 76 18 158/97 96 Room Air 97.9 10/24/17 08:42 149/88 10/24/17 08:42 77 149/88 10/24/17 07:57 97.7 77 18 149/88 95 Room Air 97.7 10/24/17 06:17 85 127/85 10/24/17 05:22 142/90 10/24/17 04:30 97.0 73 142/90 97.0 10/24/17 02:50 98.5 10/24/17 01:40 75 162/94 10/24/17 01:00 160/110 10/24/17 01:00 160/98 10/24/17 00:47 168/97 10/24/17 00:30 168/97 10/24/17 00:30 197/112 10/24/17 00:30 159/106 10/23/17 22:50 161/93 10/23/17 22:50 161/93 10/23/17 21:50 160/95 10/23/17 21:46 160/95 10/23/17 20:49 84 181/108 10/23/17 20:00 98.5 83 17 191/108 97 Room Air 98.5 10/23/17 19:11 193/111 10/23/17 17:07 173/99 10/23/17 16:00 98.8 77 20 173/99 96 Room Air 98.8 10/23/17 14:59 189/106 10/23/17 14:50 98.7 84 20 189/106 97 Room Air 98.7 Intake and Output 10/23/17 10/24/17 19:00 07:00 Intake Total 515.0 ml 200 ml Output Total 3 ml 2 ml Balance 512.0 ml 198 ml Intake Oral 200 ml 200 ml IV Total 315.0 ml Output Urine Total 3 ml 2 ml Stool Total 0 ml Laboratory Tests 10/24/17 07:11: White Blood Count 14.8H, Red Blood Count 4.73, Hemoglobin 12.7, Hematocrit 37.6 , Mean Corpuscular Volume 80, Mean Corpuscular Hemoglobin 26.8L, Mean Corpuscular Hemoglobin Concent 33.7, Red Cell Distribution Width 12.8, Platelet Count 292, Mean Platelet Volume 9.9, Neutrophils (%) (Auto) 84.7H, Lymphocytes ( %) (Auto) 9.4L, Monocytes (%) (Auto) 5.4, Eosinophils (%) (Auto) 0.0, Basophils (%) (Auto) 0.6, Sodium Level 132L, Potassium Level 3.2L, Chloride Level 97L, Carbon Dioxide Level 25, Anion Gap 10, Blood Urea Nitrogen 11, Creatinine 0.9, Estimat Glomerular Filtration Rate > 60, Glucose Level 109H, Uric Acid 2.3L, Calcium Level 8.6, Phosphorus Level 2.6, Magnesium Level 2.0, Total Bilirubin 0.4, Aspartate Amino Transf (AST/SGOT) 10L, Alanine Aminotransferase (ALT/SGPT) 14, Alkaline Phosphatase 45L, Pro-B-Type Natriuretic Peptide 1199H, Total Protein 7.2, Albumin 2.9L, Globulin 4.3, Albumin/Globulin Ratio 0.7L, Triglycerides Level 68, Cholesterol Level 193, LDL Cholesterol 107H, HDL Cholesterol 74H, Cholesterol/HDL Ratio 2.6L, Lipase 430H Height (Feet): 5 Height (Inches): 5.00 Weight (Pounds): 160 ANSELMO WATKINS Oct 24, 2017 13:10
--- NOTE | 2017-10-24 13:25 | GI Progress Note ---
Assessment/Plan Problems: (1) Post-operative nausea and vomiting ICD Codes: R11.2 - Nausea with vomiting, unspecified; Z98.890 - Other specified postprocedural states SNOMED: 8229024 (2) Abdominal pain ICD Codes: R10.9 - Unspecified abdominal pain SNOMED: 88372293 Qualifiers: Qualified Codes: R10.30 - Lower abdominal pain, unspecified (3) Anemia ICD Codes: D64.9 - Anemia, unspecified SNOMED: 551485946 (4) Acute appendicitis ICD Codes: K35.80 - Unspecified acute appendicitis SNOMED: 64398297 Qualifiers: Qualified Codes: K35.80 - Unspecified acute appendicitis Status: stable, unchanged Status Narrative Discussed with Dr. Min. Assessment/Plan on clear liquid diet, tolerating no post operative Nausea without vomiting pain 3/10 at surgical sites, minimal drainage elevated lipase >> now normal distended abdomen >> KUB ordered/reviewed >> no abnormality resume diet diet per surgery anemia work up OB stool r/o GI bleed monitor H&H, prn transfusions pain mgmt bowel regime zofran prn dressing change prn ppi fu labs IS teaching recommend patient for initial colonoscopy next year at age 48 The patient was seen and examined at bedside and all new and available data was reviewed in the patients chart. I agree with the above findings, impression and plan. (Patient seen earlier today. Signature stamp does not reflect patient encounter time.). - Son Min MD Subjective Subjective 3/10 abdominal pain Objective Last 24 Hour Vital Signs Date Time Temp Pulse Resp B/P (MAP) Pulse Ox O2 Delivery O2 Flow Rate FiO2 10/24/17 12:00 97.9 76 18 158/97 96 Room Air 97.9 10/24/17 08:42 149/88 10/24/17 08:42 77 149/88 10/24/17 07:57 97.7 77 18 149/88 95 Room Air 97.7 10/24/17 06:17 85 127/85 10/24/17 05:22 142/90 10/24/17 04:30 97.0 73 142/90 97.0 10/24/17 02:50 98.5 10/24/17 01:40 75 162/94 10/24/17 01:00 160/110 10/24/17 01:00 160/98 10/24/17 00:47 168/97 10/24/17 00:30 168/97 10/24/17 00:30 197/112 10/24/17 00:30 159/106 10/23/17 22:50 161/93 10/23/17 22:50 161/93 10/23/17 21:50 160/95 10/23/17 21:46 160/95 10/23/17 20:49 84 181/108 10/23/17 20:00 98.5 83 17 191/108 97 Room Air 98.5 10/23/17 19:11 193/111 10/23/17 17:07 173/99 10/23/17 16:00 98.8 77 20 173/99 96 Room Air 98.8 10/23/17 14:59 189/106 10/23/17 14:50 98.7 84 20 189/106 97 Room Air 98.7 Intake and Output 10/23/17 10/24/17 19:00 07:00 Intake Total 515.0 ml 200 ml Output Total 3 ml 2 ml Balance 512.0 ml 198 ml Intake Oral 200 ml 200 ml IV Total 315.0 ml Output Urine Total 3 ml 2 ml Stool Total 0 ml Laboratory Tests Test 10/24/17 07:11 White Blood Count 14.8 K/UL (4.8-10.8) H Red Blood Count 4.73 M/UL (4.20-5.40) Hemoglobin 12.7 G/DL (12.0-16.0) Hematocrit 37.6 % (37.0-47.0) Mean Corpuscular Volume 80 FL (80-99) Mean Corpuscular Hemoglobin 26.8 PG (27.0-31.0) L Mean Corpuscular Hemoglobin Concent 33.7 G/DL (32.0-36.0) Red Cell Distribution Width 12.8 % (11.6-14.8) Platelet Count 292 K/UL (150-450) Mean Platelet Volume 9.9 FL (6.5-10.1) Neutrophils (%) (Auto) 84.7 % (45.0-75.0) H Lymphocytes (%) (Auto) 9.4 % (20.0-45.0) L Monocytes (%) (Auto) 5.4 % (1.0-10.0) Eosinophils (%) (Auto) 0.0 % (0.0-3.0) Basophils (%) (Auto) 0.6 % (0.0-2.0) Sodium Level 132 MMOL/L (136-145) L Potassium Level 3.2 MMOL/L (3.5-5.1) L Chloride Level 97 MMOL/L (98-107) L Carbon Dioxide Level 25 MMOL/L (21-32) Anion Gap 10 mmol/L (5-15) Blood Urea Nitrogen 11 mg/dL (7-18) Creatinine 0.9 MG/DL (0.55-1.30) Estimat Glomerular Filtration Rate > 60 mL/min (>60) Glucose Level 109 MG/DL (74-106) H Uric Acid 2.3 MG/DL (2.6-7.2) L Calcium Level 8.6 MG/DL (8.5-10.1) Phosphorus Level 2.6 MG/DL (2.5-4.9) Magnesium Level 2.0 MG/DL (1.8-2.4) Total Bilirubin 0.4 MG/DL (0.2-1.0) Aspartate Amino Transf (AST/SGOT) 10 U/L (15-37) L Alanine Aminotransferase (ALT/SGPT) 14 U/L (12-78) Alkaline Phosphatase 45 U/L (46-116) L Pro-B-Type Natriuretic Peptide 1199 pg/mL (0-125) H Total Protein 7.2 G/DL (6.4-8.2) Albumin 2.9 G/DL (3.4-5.0) L Globulin 4.3 g/dL Albumin/Globulin Ratio 0.7 (1.0-2.7) L Triglycerides Level 68 MG/DL (30-150) Cholesterol Level 193 MG/DL (< 200) LDL Cholesterol 107 mg/dL (<100) H HDL Cholesterol 74 MG/DL (40-60) H Cholesterol/HDL Ratio 2.6 (3.3-4.4) L Lipase 430 U/L (73-393) H Height (Feet): 5 Height (Inches): 5.00 Weight (Pounds): 160 General Appearance: WD/WN, no apparent distress, alert Cardiovascular: normal rate Respiratory/Chest: normal breath sounds, no respiratory distress Abdominal Exam: normal bowel sounds, non tender, soft Extremities: normal range of motion, non-tender Simon Chaves NP Oct 24, 2017 13:25
--- NOTE | 2017-10-24 16:33 | General Surgery Progress Note ---
General Surgery-Progress Note Subjective Procedure Performed Laparoscopic Appendectomy Objective Last 24 Hour Vital Signs Date Time Temp Pulse Resp B/P (MAP) Pulse Ox O2 Delivery O2 Flow Rate FiO2 10/24/17 15:16 182/111 10/24/17 13:55 158/97 10/24/17 12:00 97.9 76 18 158/97 96 Room Air 97.9 10/24/17 08:42 149/88 10/24/17 08:42 77 149/88 10/24/17 07:57 97.7 77 18 149/88 95 Room Air 97.7 10/24/17 06:17 85 127/85 10/24/17 05:22 142/90 10/24/17 04:30 97.0 73 142/90 97.0 10/24/17 02:50 98.5 10/24/17 01:40 75 162/94 10/24/17 01:00 160/110 10/24/17 01:00 160/98 10/24/17 00:47 168/97 10/24/17 00:30 168/97 10/24/17 00:30 197/112 10/24/17 00:30 159/106 10/23/17 22:50 161/93 10/23/17 22:50 161/93 10/23/17 21:50 160/95 10/23/17 21:46 160/95 10/23/17 20:49 84 181/108 10/23/17 20:00 98.5 83 17 191/108 97 Room Air 98.5 10/23/17 19:11 193/111 10/23/17 17:07 173/99 I&O Intake and Output 10/23/17 10/24/17 19:00 07:00 Intake Total 515.0 ml 200 ml Output Total 3 ml 2 ml Balance 512.0 ml 198 ml Intake Oral 200 ml 200 ml IV Total 315.0 ml Output Urine Total 3 ml 2 ml Stool Total 0 ml Dressing: bloody Drains: none Respiratory: clear Abdomen: soft, scaphoid, non-tender, absent bowel sounds Extremities: no tenderness Laboratory Tests Test 10/24/17 07:11 White Blood Count 14.8 K/UL (4.8-10.8) H Red Blood Count 4.73 M/UL (4.20-5.40) Hemoglobin 12.7 G/DL (12.0-16.0) Hematocrit 37.6 % (37.0-47.0) Mean Corpuscular Volume 80 FL (80-99) Mean Corpuscular Hemoglobin 26.8 PG (27.0-31.0) L Mean Corpuscular Hemoglobin Concent 33.7 G/DL (32.0-36.0) Red Cell Distribution Width 12.8 % (11.6-14.8) Platelet Count 292 K/UL (150-450) Mean Platelet Volume 9.9 FL (6.5-10.1) Neutrophils (%) (Auto) 84.7 % (45.0-75.0) H Lymphocytes (%) (Auto) 9.4 % (20.0-45.0) L Monocytes (%) (Auto) 5.4 % (1.0-10.0) Eosinophils (%) (Auto) 0.0 % (0.0-3.0) Basophils (%) (Auto) 0.6 % (0.0-2.0) Sodium Level 132 MMOL/L (136-145) L Potassium Level 3.2 MMOL/L (3.5-5.1) L Chloride Level 97 MMOL/L (98-107) L Carbon Dioxide Level 25 MMOL/L (21-32) Anion Gap 10 mmol/L (5-15) Blood Urea Nitrogen 11 mg/dL (7-18) Creatinine 0.9 MG/DL (0.55-1.30) Estimat Glomerular Filtration Rate > 60 mL/min (>60) Glucose Level 109 MG/DL (74-106) H Uric Acid 2.3 MG/DL (2.6-7.2) L Calcium Level 8.6 MG/DL (8.5-10.1) Phosphorus Level 2.6 MG/DL (2.5-4.9) Magnesium Level 2.0 MG/DL (1.8-2.4) Total Bilirubin 0.4 MG/DL (0.2-1.0) Aspartate Amino Transf (AST/SGOT) 10 U/L (15-37) L Alanine Aminotransferase (ALT/SGPT) 14 U/L (12-78) Alkaline Phosphatase 45 U/L (46-116) L Pro-B-Type Natriuretic Peptide 1199 pg/mL (0-125) H Total Protein 7.2 G/DL (6.4-8.2) Albumin 2.9 G/DL (3.4-5.0) L Globulin 4.3 g/dL Albumin/Globulin Ratio 0.7 (1.0-2.7) L Triglycerides Level 68 MG/DL (30-150) Cholesterol Level 193 MG/DL (< 200) LDL Cholesterol 107 mg/dL (<100) H HDL Cholesterol 74 MG/DL (40-60) H Cholesterol/HDL Ratio 2.6 (3.3-4.4) L Lipase 430 U/L (73-393) H Assessment Post-op Diagnosis Acute Appendicitis Plan Additional Comments continue current treatment Rajni Leone MD Oct 24, 2017 16:33
[2017-10-24] MEDS: Lisinopril 10mg tab ORAL SCH (21:04)
[2017-10-24] MEDS: Enoxaparin 40mg Inj SUBQ SCH (21:04)
--- NOTE | 2017-10-24 22:14 | General Progress Note ---
Assessment/Plan Problem List: (1) Abdominal pain ICD Codes: R10.9 - Unspecified abdominal pain SNOMED: 36739959 Qualifiers: Qualified Codes: R10.30 - Lower abdominal pain, unspecified (2) Acute appendicitis ICD Codes: K35.80 - Unspecified acute appendicitis SNOMED: 10526763 Qualifiers: Qualified Codes: K35.80 - Unspecified acute appendicitis (3) Post-operative nausea and vomiting ICD Codes: R11.2 - Nausea with vomiting, unspecified; Z98.890 - Other specified postprocedural states SNOMED: 0184875 Status: progressing Assessment/Plan s/p appendectomy elevated bp htn still has elevated bp consulted dr gonzalez needs to get better control of bp Subjective ROS Limited/Unobtainable: Yes Gastrointestinal/Abdominal: Reports: abdominal pain Allergies: Coded Allergies: No Known Allergies (Unverified , 01/11/15) Objective Last 24 Hour Vital Signs Date Time Temp Pulse Resp B/P (MAP) Pulse Ox O2 Delivery O2 Flow Rate FiO2 10/24/17 21:04 153/101 10/24/17 20:49 98.4 10/24/17 18:19 167/106 10/24/17 18:18 84 167/106 10/24/17 17:09 182/111 10/24/17 16:00 98.4 82 21 182/111 96 Room Air 98.4 10/24/17 15:16 182/111 10/24/17 13:55 158/97 10/24/17 12:00 97.9 76 18 158/97 96 Room Air 97.9 10/24/17 08:42 149/88 10/24/17 08:42 77 149/88 10/24/17 07:57 97.7 77 18 149/88 95 Room Air 97.7 10/24/17 06:17 85 127/85 10/24/17 05:22 142/90 10/24/17 04:30 97.0 73 142/90 97.0 10/24/17 02:50 98.5 10/24/17 01:40 75 162/94 10/24/17 01:00 160/110 10/24/17 01:00 160/98 10/24/17 00:47 168/97 10/24/17 00:30 168/97 10/24/17 00:30 197/112 10/24/17 00:30 159/106 10/23/17 22:50 161/93 10/23/17 22:50 161/93 Intake and Output 10/23/17 10/24/17 19:00 07:00 Intake Total 515.0 ml 200 ml Output Total 3 ml 2 ml Balance 512.0 ml 198 ml Intake Oral 200 ml 200 ml IV Total 315.0 ml Output Urine Total 3 ml 2 ml Stool Total 0 ml Laboratory Tests 10/24/17 07:11: White Blood Count 14.8H, Red Blood Count 4.73, Hemoglobin 12.7, Hematocrit 37.6 , Mean Corpuscular Volume 80, Mean Corpuscular Hemoglobin 26.8L, Mean Corpuscular Hemoglobin Concent 33.7, Red Cell Distribution Width 12.8, Platelet Count 292, Mean Platelet Volume 9.9, Neutrophils (%) (Auto) 84.7H, Lymphocytes ( %) (Auto) 9.4L, Monocytes (%) (Auto) 5.4, Eosinophils (%) (Auto) 0.0, Basophils (%) (Auto) 0.6, Sodium Level 132L, Potassium Level 3.2L, Chloride Level 97L, Carbon Dioxide Level 25, Anion Gap 10, Blood Urea Nitrogen 11, Creatinine 0.9, Estimat Glomerular Filtration Rate > 60, Glucose Level 109H, Uric Acid 2.3L, Calcium Level 8.6, Phosphorus Level 2.6, Magnesium Level 2.0, Total Bilirubin 0.4, Aspartate Amino Transf (AST/SGOT) 10L, Alanine Aminotransferase (ALT/SGPT) 14, Alkaline Phosphatase 45L, Pro-B-Type Natriuretic Peptide 1199H, Total Protein 7.2, Albumin 2.9L, Globulin 4.3, Albumin/Globulin Ratio 0.7L, Triglycerides Level 68, Cholesterol Level 193, LDL Cholesterol 107H, HDL Cholesterol 74H, Cholesterol/HDL Ratio 2.6L, Lipase 430H Height (Feet): 5 Height (Inches): 5.00 Weight (Pounds): 160 Cardiovascular: normal rate Abdomen: tender Josseline Don MD Oct 24, 2017 22:14
[2017-10-25] VITALS: BP 161/101
[2017-10-25] MEDS: Piperacillin/Tazobactam 3.375 GM in D5W 110 ML IVPB SCH ×3 (00:24→16:11)
[2017-10-25] MEDS: Hydromorphone 0.5mg/0.5ml inj IVP PRN ×3 (00:49→10:12)
[2017-10-25 04:00] VITALS: BP 156/102
[2017-10-25] MEDS: Docusate Sod/Senna tab ORAL SCH ×3 (05:24→22:00)
[2017-10-25] MEDS: Metoclopramide 10mg/2ml Inj IVP SCH ×3 (05:25→22:00)
[2017-10-25] MEDS: HydrALAZINE 50mg tab ORAL SCH ×3 (05:29→22:00)
[2017-10-25 06:34] LABS: BASOPHILS % (AUTO) 2.3 % (0.0-2.0); EOSINOPHILS % (AUTO) 0.2 % (0.0-3.0); HEMATOCRIT 39.7 % (37.0-47.0); HEMOGLOBIN 13.9 G/DL (12.0-16.0); LYMPHOCYTES % (AUTO) 10.4 % (20.0-45.0); MEAN CORPUSCULAR VOLUME 80 FL (80-99); MONOCYTES % (AUTO) 6.1 % (1.0-10.0); PLATELET COUNT 310 K/UL (150-450); RED BLOOD COUNT 4.99 M/UL (4.20-5.40); RED CELL DISTRIBUTION WIDTH 12.8 % (11.6-14.8); WHITE BLOOD COUNT 12.7 K/UL (4.8-10.8)
[2017-10-25 06:47] LABS: ANION GAP 8 mmol/L (5-15); BLOOD UREA NITROGEN 12 mg/dL (7-18); CALCIUM 8.7 MG/DL (8.5-10.1); CARBON DIOXIDE 27 MMOL/L (21-32); CHLORIDE 96 MMOL/L (98-107); CREATININE 0.9 MG/DL (0.55-1.30); POTASSIUM 3.7 MMOL/L (3.5-5.1); SODIUM 130 MMOL/L (136-145)
[2017-10-25 08:00] VITALS: BP 151/96
[2017-10-25] MEDS: Pantoprazole Inj IVP SCH ×2 (08:50→20:54)
[2017-10-25] MEDS: Lisinopril 10mg tab ORAL SCH ×2 (08:52→09:02)
--- NOTE | 2017-10-25 11:44 | Infectious Diseases Prog Note ---
Assessment/Plan Assessment/Plan antibiotics : zosyn A 1. acute appendicitis s/p lap appendectomy 2. leucocytosis 3. hypertension P 1. continue zosyn 2. will follow up cultures Subjective Constitutional: Denies: fever, chills Respiratory: Denies: shortness of breath, dry cough Gastrointestinal/Abdominal: Reports: nausea, other - hiccoughs; Denies: vomiting, diarrhea Musculoskeletal: Reports: pain Allergies: Coded Allergies: No Known Allergies (Unverified , 01/11/15) Objective Vital Signs Last 24 Hour Vital Signs Date Time Temp Pulse Resp B/P (MAP) Pulse Ox O2 Delivery O2 Flow Rate FiO2 10/25/17 09:02 151/96 10/25/17 09:02 78 151/96 10/25/17 05:29 156/102 10/25/17 05:29 156/102 10/25/17 04:00 98.3 79 18 156/102 97 98.3 10/25/17 00:27 161/101 10/25/17 00:00 98.8 80 18 161/101 97 98.8 10/24/17 22:19 143/89 10/24/17 21:04 153/101 10/24/17 20:49 98.4 10/24/17 20:00 99.1 85 19 153/101 98 99.1 10/24/17 18:19 167/106 10/24/17 18:18 84 167/106 10/24/17 17:09 182/111 10/24/17 16:00 98.4 82 21 182/111 96 Room Air 98.4 10/24/17 15:16 182/111 10/24/17 13:55 158/97 10/24/17 12:00 97.9 76 18 158/97 96 Room Air 97.9 Height (Feet): 5 Height (Inches): 5.00 Weight (Pounds): 160 Respiratory/Chest: lungs clear Cardiovascular: normal rate, regular rhythm, no gallop/murmur Abdomen: other - wounds clean Extremities: no edema Laboratory Tests Test 10/25/17 05:55 White Blood Count 12.7 K/UL (4.8-10.8) H Red Blood Count 4.99 M/UL (4.20-5.40) Hemoglobin 13.9 G/DL (12.0-16.0) Hematocrit 39.7 % (37.0-47.0) Mean Corpuscular Volume 80 FL (80-99) Mean Corpuscular Hemoglobin 27.8 PG (27.0-31.0) Mean Corpuscular Hemoglobin Concent 34.9 G/DL (32.0-36.0) Red Cell Distribution Width 12.8 % (11.6-14.8) Platelet Count 310 K/UL (150-450) Mean Platelet Volume 10.0 FL (6.5-10.1) Neutrophils (%) (Auto) 81.0 % (45.0-75.0) H Lymphocytes (%) (Auto) 10.4 % (20.0-45.0) L Monocytes (%) (Auto) 6.1 % (1.0-10.0) Eosinophils (%) (Auto) 0.2 % (0.0-3.0) Basophils (%) (Auto) 2.3 % (0.0-2.0) H Sodium Level 130 MMOL/L (136-145) L Potassium Level 3.7 MMOL/L (3.5-5.1) Chloride Level 96 MMOL/L (98-107) L Carbon Dioxide Level 27 MMOL/L (21-32) Anion Gap 8 mmol/L (5-15) Blood Urea Nitrogen 12 mg/dL (7-18) Creatinine 0.9 MG/DL (0.55-1.30) Estimat Glomerular Filtration Rate > 60 mL/min (>60) Glucose Level 103 MG/DL (74-106) Calcium Level 8.7 MG/DL (8.5-10.1) C-Reactive Protein, Quantitative 2.6 mg/dL (0.00-0.90) H Lipase 672 U/L (73-393) H Current Medications Medications (Trade) Dose Ordered Sig/Janet Route PRN Reason Start Time Stop Time Status Last Admin Dose Admin Acetaminophen (Tylenol) 650 mg Q4H PRN RECTAL Mild Pain (Pain Scale 1-3) 10/21/17 20:00 11/20/17 19:59 Amlodipine Besylate (Norvasc) 10 mg DAILY ORAL 10/24/17 09:00 11/23/17 08:59 10/25/17 09:02 Clonidine HCl (Catapres Tab) 0.1 mg EVERY 6 HOURS ORAL 10/24/17 18:00 11/23/17 17:59 10/25/17 05:29 Clonidine HCl (Catapres Tab) 0.1 mg Q4H PRN ORAL bp over 160 when in no pain 10/23/17 12:00 11/22/17 11:59 10/24/17 15:16 Enoxaparin Sodium (Lovenox) 40 mg Q24H SUBQ 10/22/17 21:00 11/21/17 20:59 10/24/17 21:04 Hydralazine HCl (Apresoline) 50 mg Q8HR ORAL 10/23/17 22:00 11/22/17 11:59 10/25/17 05:29 Hydromorphone HCl (Dilaudid) 0.5 mg Q4H PRN IVP PAIN>5 10/23/17 12:00 10/30/17 11:59 10/25/17 10:12 Lisinopril (Zestril) 10 mg Q12HR ORAL 10/24/17 21:00 11/22/17 20:59 10/25/17 09:02 Metoclopramide HCl (Reglan) 10 mg EVERY 8 HOURS IVP 10/21/17 22:00 11/20/17 21:59 10/25/17 05:25 Ondansetron HCl (Zofran) 4 mg Q6H PRN IVP Nausea & Vomiting 10/22/17 16:00 11/21/17 15:59 10/25/17 10:12 Pantoprazole (Protonix) 40 mg EVERY 12 HOURS IVP 10/23/17 21:00 11/22/17 20:59 10/25/17 08:50 Piperacillin Sod/ Tazobactam Sod 3.375 gm/Dextrose 110 ml @ 27.5 mls/hr Q8H IVPB 10/22/17 00:00 10/29/17 00:00 10/25/17 08:50 Senna/Docusate Sodium (Maritza-Colace) 1 tab EVERY 8 HOURS ORAL 10/22/17 14:00 11/21/17 13:59 10/25/17 05:24 MIC CHOI Oct 25, 2017 11:44
[2017-10-25 12:00] VITALS: BP 144/79
--- NOTE | 2017-10-25 12:32 | General Progress Note ---
Assessment/Plan Problem List: (1) Abdominal pain ICD Codes: R10.9 - Unspecified abdominal pain SNOMED: 55737352 Qualifiers: Qualified Codes: R10.30 - Lower abdominal pain, unspecified (2) Acute appendicitis ICD Codes: K35.80 - Unspecified acute appendicitis SNOMED: 51493675 Qualifiers: Qualified Codes: K35.80 - Unspecified acute appendicitis (3) Post-operative nausea and vomiting ICD Codes: R11.2 - Nausea with vomiting, unspecified; Z98.890 - Other specified postprocedural states SNOMED: [id number] Status: progressing Assessment/Plan s/p appendectomy bp is improving diet per surgeon moniter bp closely Subjective ROS Limited/Unobtainable: Yes Allergies: Coded Allergies: No Known Allergies (Unverified , 01/11/15) Objective Last 24 Hour Vital Signs Date Time Temp Pulse Resp B/P (MAP) Pulse Ox O2 Delivery O2 Flow Rate FiO2 10/25/17 09:02 151/96 10/25/17 09:02 78 151/96 10/25/17 08:00 97.0 77 18 151/96 97 97.0 10/25/17 05:29 156/102 10/25/17 05:29 156/102 10/25/17 04:00 98.3 79 18 156/102 97 98.3 10/25/17 00:27 161/101 10/25/17 00:00 98.8 80 18 161/101 97 98.8 10/24/17 22:19 143/89 10/24/17 21:04 153/101 10/24/17 20:49 98.4 10/24/17 20:00 99.1 85 19 153/101 98 99.1 10/24/17 18:19 167/106 10/24/17 18:18 84 167/106 10/24/17 17:09 182/111 10/24/17 16:00 98.4 82 21 182/111 96 Room Air 98.4 10/24/17 15:16 182/111 10/24/17 13:55 158/97 Intake and Output 10/24/17 10/25/17 19:00 07:00 Intake Total 570.0 ml 360 ml Output Total 300 ml Balance 570.0 ml 60 ml Intake Oral 360 ml 360 ml IV Total 210.0 ml Emesis 300 ml # Voids 2 5 Laboratory Tests 10/25/17 05:55: White Blood Count 12.7H, Red Blood Count 4.99, Hemoglobin 13.9, Hematocrit 39.7 , Mean Corpuscular Volume 80, Mean Corpuscular Hemoglobin 27.8, Mean Corpuscular Hemoglobin Concent 34.9, Red Cell Distribution Width 12.8, Platelet Count 310, Mean Platelet Volume 10.0, Neutrophils (%) (Auto) 81.0H, Lymphocytes (%) (Auto) 10.4L, Monocytes (%) (Auto) 6.1, Eosinophils (%) (Auto) 0.2, Basophils (%) (Auto) 2.3H, Sodium Level 130L, Potassium Level 3.7, Chloride Level 96L, Carbon Dioxide Level 27, Anion Gap 8, Blood Urea Nitrogen 12, Creatinine 0.9, Estimat Glomerular Filtration Rate > 60, Glucose Level 103, Calcium Level 8.7, C-Reactive Protein, Quantitative 2.6H, Lipase 672H Height (Feet): 5 Height (Inches): 5.00 Weight (Pounds): 160 Abdomen: tender Josseline Don MD Oct 25, 2017 12:32
[2017-10-25] MEDS ORDERED: D5 1/2NS 1000ml IV ONE (13:28)
[2017-10-25] MEDS ORDERED: D5NS 1000ml IV ONE (13:28)
[2017-10-25] MEDS ORDERED: NS 500ML ONE (13:28)
--- NOTE | 2017-10-25 14:24 | General Surgery Progress Note ---
General Surgery-Progress Note Subjective Procedure Performed Laparoscopic Appendectomy Objective Last 24 Hour Vital Signs Date Time Temp Pulse Resp B/P (MAP) Pulse Ox O2 Delivery O2 Flow Rate FiO2 10/25/17 13:17 144/79 10/25/17 12:00 97.9 95 19 144/79 99 97.9 10/25/17 09:02 151/96 10/25/17 09:02 78 151/96 10/25/17 08:00 97.0 77 18 151/96 97 97.0 10/25/17 05:29 156/102 10/25/17 05:29 156/102 10/25/17 04:00 98.3 79 18 156/102 97 98.3 10/25/17 00:27 161/101 10/25/17 00:00 98.8 80 18 161/101 97 98.8 10/24/17 22:19 143/89 10/24/17 21:04 153/101 10/24/17 20:49 98.4 10/24/17 20:00 99.1 85 19 153/101 98 99.1 10/24/17 18:19 167/106 10/24/17 18:18 84 167/106 10/24/17 17:09 182/111 10/24/17 16:00 98.4 82 21 182/111 96 Room Air 98.4 10/24/17 15:16 182/111 I&O Intake and Output 10/24/17 10/25/17 19:00 07:00 Intake Total 570.0 ml 360 ml Output Total 300 ml Balance 570.0 ml 60 ml Intake Oral 360 ml 360 ml IV Total 210.0 ml Emesis 300 ml # Voids 2 5 Dressing: bloody Drains: none Respiratory: clear Abdomen: soft, scaphoid, non-tender, present bowel sounds Extremities: no edema, no tenderness Laboratory Tests Test 10/25/17 05:55 White Blood Count 12.7 K/UL (4.8-10.8) H Red Blood Count 4.99 M/UL (4.20-5.40) Hemoglobin 13.9 G/DL (12.0-16.0) Hematocrit 39.7 % (37.0-47.0) Mean Corpuscular Volume 80 FL (80-99) Mean Corpuscular Hemoglobin 27.8 PG (27.0-31.0) Mean Corpuscular Hemoglobin Concent 34.9 G/DL (32.0-36.0) Red Cell Distribution Width 12.8 % (11.6-14.8) Platelet Count 310 K/UL (150-450) Mean Platelet Volume 10.0 FL (6.5-10.1) Neutrophils (%) (Auto) 81.0 % (45.0-75.0) H Lymphocytes (%) (Auto) 10.4 % (20.0-45.0) L Monocytes (%) (Auto) 6.1 % (1.0-10.0) Eosinophils (%) (Auto) 0.2 % (0.0-3.0) Basophils (%) (Auto) 2.3 % (0.0-2.0) H Sodium Level 130 MMOL/L (136-145) L Potassium Level 3.7 MMOL/L (3.5-5.1) Chloride Level 96 MMOL/L (98-107) L Carbon Dioxide Level 27 MMOL/L (21-32) Anion Gap 8 mmol/L (5-15) Blood Urea Nitrogen 12 mg/dL (7-18) Creatinine 0.9 MG/DL (0.55-1.30) Estimat Glomerular Filtration Rate > 60 mL/min (>60) Glucose Level 103 MG/DL (74-106) Calcium Level 8.7 MG/DL (8.5-10.1) C-Reactive Protein, Quantitative 2.6 mg/dL (0.00-0.90) H Lipase 672 U/L (73-393) H Assessment Post-op Diagnosis Acute Appendicitis Plan Additional Comments continue current treatment Rajni Leone MD Oct 25, 2017 14:24
[2017-10-25] MEDS ORDERED: Miralax 17gm pkt ORAL ONE (15:00)
[2017-10-25] MEDS ORDERED: traMADol 50mg tab ORAL PRN ×2 (15:15→20:00)
[2017-10-25 16:00] VITALS: BP 151/91
--- NOTE | 2017-10-25 16:13 | Nephrology Progress Note ---
Assessment/Plan Problem List: (1) Acute appendicitis (2) UTI (urinary tract infection) (3) Post-operative nausea and vomiting (4) Hypertension Assessment HTN ooc Post op appendicitis electrolyte abnormalities High Lipase Plan K supp as needed Dilaudid IV for pain IV protonix hydralazine, norvasc, lisinopril clonidine for pain per orders per consultants Subjective ROS Limited/Unobtainable: No Constitutional: Reports: malaise Objective Objective Last 24 Hour Vital Signs Date Time Temp Pulse Resp B/P (MAP) Pulse Ox O2 Delivery O2 Flow Rate FiO2 10/25/17 14:56 146/78 10/25/17 13:17 144/79 10/25/17 12:00 97.9 95 19 144/79 99 97.9 10/25/17 09:02 151/96 10/25/17 09:02 78 151/96 10/25/17 08:00 97.0 77 18 151/96 97 97.0 10/25/17 05:29 156/102 10/25/17 05:29 156/102 10/25/17 04:00 98.3 79 18 156/102 97 98.3 10/25/17 00:27 161/101 10/25/17 00:00 98.8 80 18 161/101 97 98.8 10/24/17 22:19 143/89 10/24/17 21:04 153/101 10/24/17 20:49 98.4 10/24/17 20:00 99.1 85 19 153/101 98 99.1 10/24/17 18:19 167/106 10/24/17 18:18 84 167/106 10/24/17 17:09 182/111 Intake and Output 10/24/17 10/25/17 19:00 07:00 Intake Total 570.0 ml 360 ml Output Total 300 ml Balance 570.0 ml 60 ml Intake Oral 360 ml 360 ml IV Total 210.0 ml Emesis 300 ml # Voids 2 5 Laboratory Tests 10/25/17 05:55: White Blood Count 12.7H, Red Blood Count 4.99, Hemoglobin 13.9, Hematocrit 39.7 , Mean Corpuscular Volume 80, Mean Corpuscular Hemoglobin 27.8, Mean Corpuscular Hemoglobin Concent 34.9, Red Cell Distribution Width 12.8, Platelet Count 310, Mean Platelet Volume 10.0, Neutrophils (%) (Auto) 81.0H, Lymphocytes (%) (Auto) 10.4L, Monocytes (%) (Auto) 6.1, Eosinophils (%) (Auto) 0.2, Basophils (%) (Auto) 2.3H, Sodium Level 130L, Potassium Level 3.7, Chloride Level 96L, Carbon Dioxide Level 27, Anion Gap 8, Blood Urea Nitrogen 12, Creatinine 0.9, Estimat Glomerular Filtration Rate > 60, Glucose Level 103, Calcium Level 8.7, C-Reactive Protein, Quantitative 2.6H, Lipase 672H Height (Feet): 5 Height (Inches): 5.00 Weight (Pounds): 160 General Appearance: no apparent distress ANSELMO WATKINS Oct 25, 2017 16:13
--- NOTE | 2017-10-25 17:55 | Cardiology Progress Note ---
Assessment/Plan Assessment/Plan The patient is seen and examined, full consult note will be dictated shortly. Objective Last 24 Hour Vital Signs Date Time Temp Pulse Resp B/P (MAP) Pulse Ox O2 Delivery O2 Flow Rate FiO2 10/25/17 16:00 98.6 80 20 151/91 95 98.6 10/25/17 14:56 146/78 10/25/17 13:17 144/79 10/25/17 12:00 97.9 95 19 144/79 99 97.9 10/25/17 09:02 151/96 10/25/17 09:02 78 151/96 10/25/17 08:00 97.0 77 18 151/96 97 97.0 10/25/17 05:29 156/102 10/25/17 05:29 156/102 10/25/17 04:00 98.3 79 18 156/102 97 98.3 10/25/17 00:27 161/101 10/25/17 00:00 98.8 80 18 161/101 97 98.8 10/24/17 22:19 143/89 10/24/17 21:04 153/101 10/24/17 20:49 98.4 10/24/17 20:00 99.1 85 19 153/101 98 99.1 10/24/17 18:19 167/106 10/24/17 18:18 84 167/106 Intake and Output 10/24/17 10/25/17 19:00 07:00 Intake Total 570.0 ml 360 ml Output Total 300 ml Balance 570.0 ml 60 ml Intake Oral 360 ml 360 ml IV Total 210.0 ml Emesis 300 ml # Voids 2 5 Laboratory Tests Test 10/25/17 05:55 White Blood Count 12.7 K/UL (4.8-10.8) H Red Blood Count 4.99 M/UL (4.20-5.40) Hemoglobin 13.9 G/DL (12.0-16.0) Hematocrit 39.7 % (37.0-47.0) Mean Corpuscular Volume 80 FL (80-99) Mean Corpuscular Hemoglobin 27.8 PG (27.0-31.0) Mean Corpuscular Hemoglobin Concent 34.9 G/DL (32.0-36.0) Red Cell Distribution Width 12.8 % (11.6-14.8) Platelet Count 310 K/UL (150-450) Mean Platelet Volume 10.0 FL (6.5-10.1) Neutrophils (%) (Auto) 81.0 % (45.0-75.0) H Lymphocytes (%) (Auto) 10.4 % (20.0-45.0) L Monocytes (%) (Auto) 6.1 % (1.0-10.0) Eosinophils (%) (Auto) 0.2 % (0.0-3.0) Basophils (%) (Auto) 2.3 % (0.0-2.0) H Sodium Level 130 MMOL/L (136-145) L Potassium Level 3.7 MMOL/L (3.5-5.1) Chloride Level 96 MMOL/L (98-107) L Carbon Dioxide Level 27 MMOL/L (21-32) Anion Gap 8 mmol/L (5-15) Blood Urea Nitrogen 12 mg/dL (7-18) Creatinine 0.9 MG/DL (0.55-1.30) Estimat Glomerular Filtration Rate > 60 mL/min (>60) Glucose Level 103 MG/DL (74-106) Calcium Level 8.7 MG/DL (8.5-10.1) C-Reactive Protein, Quantitative 2.6 mg/dL (0.00-0.90) H Lipase 672 U/L (73-393) H Alfa Wilhelm MD Oct 25, 2017 17:55
[2017-10-25] MEDS ORDERED: Enalaprilat 2.5mg/2ml Inj IV SCH (18:30)
[2017-10-25 20:00] VITALS: BP 162/93
[2017-10-25] MEDS: Lisinopril 20mg tab ORAL SCH ×2 (20:54→21:00)
[2017-10-25] MEDS ORDERED: Lisinopril 20mg tab ORAL SCH (21:00)
[2017-10-25] MEDS ORDERED: Enoxaparin 40mg Inj SUBQ SCH (21:00)
[2017-10-25] MEDS: D5 1/2NS w/KCl 20mEq 1,000 ML IV SCH (22:08)
--- NOTE | 2017-10-25 22:45 | Consultation ---
DATE OF CONSULTATION: 10/25/2017 CARDIOLOGY CONSULTATION CONSULTING PHYSICIAN: Alfa Wilhelm M.D. REFERRING PHYSICIAN: Josseline Don M.D. REASON FOR CONSULTATION: Management of accelerated hypertension. HISTORY OF PRESENT ILLNESS: The patient is a very unfortunate 47-year-old female, who presents to the hospital with abdominal pain. The patient was initially diagnosed in the emergency department with acute appendicitis and underwent laparotomy and appendectomy on Friday last week. The patient continued to have nausea and vomiting and not capable of tolerating p.o. and keeping down any oral medications. She was found to have elevated blood pressure and was placed on combination of amlodipine, hydralazine, and lisinopril. Her blood pressure continues to be elevated. Cardiology consultation was made at the request of Dr. Don to address and manage accelerated hypertension. PAST MEDICAL HISTORY: None. PAST SURGICAL HISTORY: Surgery for breast augmentation. ALLERGIES: No known drug allergies. SOCIAL HISTORY: Denies any tobacco, alcohol, or illicit drug use. REVIEW OF SYSTEMS: A 12-system review done essentially negative except what was mentioned in the history of present illness. MEDICATIONS: List of medications as an outpatient, none. PHYSICAL EXAMINATION: VITAL SIGNS: Blood pressure is 151/91 mmHg, heart rate of 82, respirations of 20, O2 saturation 95% on room air, and temperature 98.6 degrees Fahrenheit. GENERAL: The patient is a very unfortunate 47-year-old female, in no apparent respiratory distress. She is nauseous. HEENT: Atraumatic and normocephalic. Pupils are equal, round, and reactive to light and accommodation. Extraocular muscles intact. NECK: JVP less than 5 cm. No carotid bruits. Carotid upstrokes 2+ bilaterally. CARDIOVASCULAR: Normal S1, S2. Regular rate and rhythm. No murmurs, gallops, or rubs. LUNGS: Clear to auscultation bilaterally. ABDOMEN: Soft, nontender, and nondistended. No hepatosplenomegaly. Positive bowel sounds. EXTREMITIES: No evidence of edema, clubbing, or cyanosis. LABORATORY FINDINGS: Sodium 130, potassium 3.7, chloride 96, bicarbonate 27, BUN of 12, creatinine 0.9, glucose is 103, calcium is 8.7. C-reactive protein 2.6. Lipase is . Total cholesterol 193, LDL was 107, HDL of 74, triglycerides 68. ProBNP was 1199. ASSESSMENT AND PLAN: The patient is a very unfortunate 47-year-old female, seen in Cardiology consultation. 1. Accelerated hypertension. the blood pressure is not well-controlled most likely secondary to inability to tolerate p.o. medication. We will place the patient on enalapril at 1.25 mg IV q.6 hours. We will obtain 12-lead electrocardiogram as well. 2. Acute appendicitis, status post appendectomy. I would like to thank Dr. Don for the courtesy of this consultation. Alfa Wilhelm M.D. DR: Rios JOB#: [id number] CC:
[2017-10-26] VITALS (7 sets, daily range): BP systolic 139–165; BP diastolic 75–98
[2017-10-26] MEDS: Piperacillin/Tazobactam 3.375 GM in D5W 110 ML IVPB SCH ×3 (00:05→17:43)
[2017-10-26] MEDS: Enalaprilat 2.5mg/2ml Inj IV SCH ×4 (00:08→17:44)
[2017-10-26] MEDS: Metoclopramide 10mg/2ml Inj IVP SCH ×3 (05:58→20:39)
[2017-10-26] MEDS: Docusate Sod/Senna tab ORAL SCH ×3 (05:58→22:06)
[2017-10-26] MEDS: HydrALAZINE 50mg tab ORAL SCH ×3 (05:58→22:14)
[2017-10-26 07:17] LABS: BASOPHILS % (AUTO) 0.5 % (0.0-2.0); EOSINOPHILS % (AUTO) 0.7 % (0.0-3.0); HEMATOCRIT 40.6 % (37.0-47.0); HEMOGLOBIN 13.7 G/DL (12.0-16.0); LYMPHOCYTES % (AUTO) 12.6 % (20.0-45.0); MEAN CORPUSCULAR VOLUME 79 FL (80-99); NEUTROPHILS % (AUTO) 78.2 % (45.0-75.0); PLATELET COUNT 329 K/UL (150-450); RED BLOOD COUNT 5.15 M/UL (4.20-5.40); RED CELL DISTRIBUTION WIDTH 12.7 % (11.6-14.8); WHITE BLOOD COUNT 11.8 K/UL (4.8-10.8)
[2017-10-26 07:22] LABS: ANION GAP 13 mmol/L (5-15); BLOOD UREA NITROGEN 10 mg/dL (7-18); CARBON DIOXIDE 25 MMOL/L (21-32); CHLORIDE 95 MMOL/L (98-107); POTASSIUM 3.2 MMOL/L (3.5-5.1); SODIUM 132 MMOL/L (136-145)
[2017-10-26] MEDS: Lisinopril 20mg tab ORAL SCH ×2 (08:41→20:28)
[2017-10-26] MEDS: Pantoprazole Inj IVP SCH (08:42)
--- NOTE | 2017-10-26 10:25 | Nephrology Progress Note ---
Assessment/Plan Problem List: (1) Acute appendicitis (2) UTI (urinary tract infection) (3) Post-operative nausea and vomiting (4) Hypertension Assessment HTN ooc Post op appendicitis electrolyte abnormalities High Lipase Plan up clonidine dose K supp as needed Dilaudid IV for pain IV protonix hydralazine, norvasc, lisinopril clonidine for pain per orders per consultants Subjective ROS Limited/Unobtainable: No Constitutional: Reports: malaise Objective Objective Last 24 Hour Vital Signs Date Time Temp Pulse Resp B/P (MAP) Pulse Ox O2 Delivery O2 Flow Rate FiO2 10/26/17 08:41 168/94 10/26/17 08:40 89 168/94 10/26/17 05:58 155/95 10/26/17 05:58 155/95 10/26/17 05:49 155/95 10/26/17 04:00 98.2 79 20 155/95 95 98.2 10/26/17 04:00 75 10/26/17 00:08 153/94 10/26/17 00:00 80 10/26/17 00:00 98.7 81 20 153/94 96 98.7 10/25/17 22:00 162/93 10/25/17 22:00 162/93 10/25/17 21:00 162/93 10/25/17 20:00 99.1 84 20 162/93 95 99.1 10/25/17 20:00 91 10/25/17 18:30 158/89 10/25/17 16:00 98.6 80 20 151/91 95 98.6 10/25/17 14:56 146/78 10/25/17 13:17 144/79 10/25/17 12:00 97.9 95 19 144/79 99 97.9 Intake and Output 10/25/17 10/26/17 19:00 07:00 Intake Total 292.5 ml 1142.5 ml Output Total 50 ml 100 ml Balance 242.5 ml 1042.5 ml IV Total 292.5 ml 1142.5 ml Emesis 50 ml 100 ml # Voids 3 Laboratory Tests 10/26/17 05:05: White Blood Count 11.8H, Red Blood Count 5.15, Hemoglobin 13.7, Hematocrit 40.6 , Mean Corpuscular Volume 79L, Mean Corpuscular Hemoglobin 26.7L, Mean Corpuscular Hemoglobin Concent 33.8, Red Cell Distribution Width 12.7, Platelet Count 329, Mean Platelet Volume 9.7, Neutrophils (%) (Auto) 78.2H, Lymphocytes ( %) (Auto) 12.6L, Monocytes (%) (Auto) 8.0, Eosinophils (%) (Auto) 0.7, Basophils (%) (Auto) 0.5, Sodium Level 132L, Potassium Level 3.2L, Chloride Level 95L, Carbon Dioxide Level 25, Anion Gap 13, Blood Urea Nitrogen 10, Creatinine 1.0, Estimat Glomerular Filtration Rate > 60, Glucose Level 92, Calcium Level 9.0 Height (Feet): 5 Height (Inches): 5.00 Weight (Pounds): 160 General Appearance: no apparent distress Cardiovascular: normal rate Abdomen: distended ANSELMO WATKINS Oct 26, 2017 10:25
--- NOTE | 2017-10-26 12:40 | General Surgery Progress Note ---
General Surgery-Progress Note Subjective Procedure Performed Laparoscopic Appendectomy Additional Comments no pain has nausea and vomiting Objective Last 24 Hour Vital Signs Date Time Temp Pulse Resp B/P (MAP) Pulse Ox O2 Delivery O2 Flow Rate FiO2 10/26/17 11:58 150/94 10/26/17 08:41 168/94 10/26/17 08:40 89 168/94 10/26/17 08:00 98.7 81 20 153/94 96 98.7 10/26/17 08:00 97 10/26/17 05:58 155/95 10/26/17 05:58 155/95 10/26/17 05:49 155/95 10/26/17 04:00 98.2 79 20 155/95 95 98.2 10/26/17 04:00 75 10/26/17 00:08 153/94 10/26/17 00:00 80 10/26/17 00:00 98.7 81 20 153/94 96 98.7 10/25/17 22:00 162/93 10/25/17 22:00 162/93 10/25/17 21:00 162/93 10/25/17 20:00 99.1 84 20 162/93 95 99.1 10/25/17 20:00 91 10/25/17 18:30 158/89 10/25/17 16:00 98.6 80 20 151/91 95 98.6 10/25/17 14:56 146/78 10/25/17 13:17 144/79 I&O Intake and Output 10/25/17 10/26/17 19:00 07:00 Intake Total 292.5 ml 1142.5 ml Output Total 50 ml 100 ml Balance 242.5 ml 1042.5 ml IV Total 292.5 ml 1142.5 ml Emesis 50 ml 100 ml # Voids 3 Dressing: bloody Drains: none Respiratory: clear Abdomen: soft, non-tender, absent bowel sounds Extremities: no edema, no tenderness Laboratory Tests Test 10/26/17 05:05 White Blood Count 11.8 K/UL (4.8-10.8) H Red Blood Count 5.15 M/UL (4.20-5.40) Hemoglobin 13.7 G/DL (12.0-16.0) Hematocrit 40.6 % (37.0-47.0) Mean Corpuscular Volume 79 FL (80-99) L Mean Corpuscular Hemoglobin 26.7 PG (27.0-31.0) L Mean Corpuscular Hemoglobin Concent 33.8 G/DL (32.0-36.0) Red Cell Distribution Width 12.7 % (11.6-14.8) Platelet Count 329 K/UL (150-450) Mean Platelet Volume 9.7 FL (6.5-10.1) Neutrophils (%) (Auto) 78.2 % (45.0-75.0) H Lymphocytes (%) (Auto) 12.6 % (20.0-45.0) L Monocytes (%) (Auto) 8.0 % (1.0-10.0) Eosinophils (%) (Auto) 0.7 % (0.0-3.0) Basophils (%) (Auto) 0.5 % (0.0-2.0) Sodium Level 132 MMOL/L (136-145) L Potassium Level 3.2 MMOL/L (3.5-5.1) L Chloride Level 95 MMOL/L (98-107) L Carbon Dioxide Level 25 MMOL/L (21-32) Anion Gap 13 mmol/L (5-15) Blood Urea Nitrogen 10 mg/dL (7-18) Creatinine 1.0 MG/DL (0.55-1.30) Estimat Glomerular Filtration Rate > 60 mL/min (>60) Glucose Level 92 MG/DL (74-106) Calcium Level 9.0 MG/DL (8.5-10.1) Assessment Post-op Diagnosis Acute Appendicitis Plan Additional Comments continue current treatment Rajni Leone MD Oct 26, 2017 12:40
[2017-10-26] MEDS ORDERED: Isovue-300 100ml vial INJ PRN (12:45)
[2017-10-26] MEDS ORDERED: Gastrograffin 30ml ORAL PRN (12:45)
[2017-10-26] MEDS ORDERED: traMADol 50mg tab ORAL PRN (17:00)
--- NOTE | 2017-10-26 17:52 | Cardiology Progress Note ---
Assessment/Plan Assessment/Plan 1. Accelerated hypertension. We would like to increase Enalaprilat to 2.5mg IV q8 due to PO intolerance. 2. Acute appendicitis, status post appendectomy. 3. Intractable nausea and vomiting, recommend GI consult. Subjective Subjective Sinus rhythm at 83. Does not tolerate KCL IV ordered by Dr. Arellano. Objective Last 24 Hour Vital Signs Date Time Temp Pulse Resp B/P (MAP) Pulse Ox O2 Delivery O2 Flow Rate FiO2 10/26/17 17:44 165/95 10/26/17 14:33 151/95 10/26/17 14:33 151/95 10/26/17 12:00 97.8 83 20 150/94 97 97.8 10/26/17 12:00 106 10/26/17 11:58 150/94 10/26/17 08:41 168/94 10/26/17 08:40 89 168/94 10/26/17 08:00 98.7 81 20 153/94 96 98.7 10/26/17 08:00 97 10/26/17 05:58 155/95 10/26/17 05:58 155/95 10/26/17 05:49 155/95 10/26/17 04:00 98.2 79 20 155/95 95 98.2 10/26/17 04:00 75 10/26/17 00:08 153/94 10/26/17 00:00 80 10/26/17 00:00 98.7 81 20 153/94 96 98.7 10/25/17 22:00 162/93 10/25/17 22:00 162/93 10/25/17 21:00 162/93 10/25/17 20:00 99.1 84 20 162/93 95 99.1 10/25/17 20:00 91 10/25/17 18:30 158/89 Intake and Output 10/25/17 10/26/17 19:00 07:00 Intake Total 292.5 ml 1142.5 ml Output Total 50 ml 100 ml Balance 242.5 ml 1042.5 ml IV Total 292.5 ml 1142.5 ml Emesis 50 ml 100 ml # Voids 3 Laboratory Tests Test 10/26/17 05:05 White Blood Count 11.8 K/UL (4.8-10.8) H Red Blood Count 5.15 M/UL (4.20-5.40) Hemoglobin 13.7 G/DL (12.0-16.0) Hematocrit 40.6 % (37.0-47.0) Mean Corpuscular Volume 79 FL (80-99) L Mean Corpuscular Hemoglobin 26.7 PG (27.0-31.0) L Mean Corpuscular Hemoglobin Concent 33.8 G/DL (32.0-36.0) Red Cell Distribution Width 12.7 % (11.6-14.8) Platelet Count 329 K/UL (150-450) Mean Platelet Volume 9.7 FL (6.5-10.1) Neutrophils (%) (Auto) 78.2 % (45.0-75.0) H Lymphocytes (%) (Auto) 12.6 % (20.0-45.0) L Monocytes (%) (Auto) 8.0 % (1.0-10.0) Eosinophils (%) (Auto) 0.7 % (0.0-3.0) Basophils (%) (Auto) 0.5 % (0.0-2.0) Sodium Level 132 MMOL/L (136-145) L Potassium Level 3.2 MMOL/L (3.5-5.1) L Chloride Level 95 MMOL/L (98-107) L Carbon Dioxide Level 25 MMOL/L (21-32) Anion Gap 13 mmol/L (5-15) Blood Urea Nitrogen 10 mg/dL (7-18) Creatinine 1.0 MG/DL (0.55-1.30) Estimat Glomerular Filtration Rate > 60 mL/min (>60) Glucose Level 92 MG/DL (74-106) Calcium Level 9.0 MG/DL (8.5-10.1) Objective GENERAL: The patient is a very unfortunate 47-year-old female, in no apparent respiratory distress. She is nauseous. HEENT: Atraumatic and normocephalic. Pupils are equal, round, and reactive to light and accommodation. Extraocular muscles intact. NECK: JVP less than 5 cm. No carotid bruits. Carotid upstrokes 2+ bilaterally. CARDIOVASCULAR: Normal S1, S2. Tachycardic. Regular rate and rhythm. No murmurs, gallops, or rubs. LUNGS: Clear to auscultation bilaterally. ABDOMEN: Soft, nontender, and nondistended. No hepatosplenomegaly. Positive bowel sounds. EXTREMITIES: No evidence of edema, clubbing, or cyanosis. Alfa Wilhelm MD Oct 26, 2017 17:52
[2017-10-26] MEDS ORDERED: Enalaprilat 2.5mg/2ml Inj IV SCH (18:00)
--- NOTE | 2017-10-26 18:41 | General Progress Note ---
Assessment/Plan Problem List: (1) Abdominal pain ICD Codes: R10.9 - Unspecified abdominal pain SNOMED: 91910307 Qualifiers: Qualified Codes: R10.30 - Lower abdominal pain, unspecified (2) Acute appendicitis ICD Codes: K35.80 - Unspecified acute appendicitis SNOMED: 33492872 Qualifiers: Qualified Codes: K35.80 - Unspecified acute appendicitis (3) Post-operative nausea and vomiting ICD Codes: R11.2 - Nausea with vomiting, unspecified; Z98.890 - Other specified postprocedural states SNOMED: 7822460 Status: progressing Assessment/Plan s/p appendectomy bp is improving persistent hypertension is improving afebrile diet per surgeon Subjective HEENT: Reports: no symptoms Cardiovascular: Reports: no symptoms Gastrointestinal/Abdominal: Reports: abdominal pain Allergies: Coded Allergies: No Known Allergies (Unverified , 01/11/15) Objective Last 24 Hour Vital Signs Date Time Temp Pulse Resp B/P (MAP) Pulse Ox O2 Delivery O2 Flow Rate FiO2 10/26/17 17:44 165/95 10/26/17 16:00 99.2 79 20 165/95 98 Room Air 99.2 10/26/17 14:33 151/95 10/26/17 14:33 151/95 10/26/17 12:00 97.8 83 20 150/94 97 97.8 10/26/17 12:00 106 10/26/17 11:58 150/94 10/26/17 08:41 168/94 10/26/17 08:40 89 168/94 10/26/17 08:00 98.7 81 20 153/94 96 98.7 10/26/17 08:00 97 10/26/17 05:58 155/95 10/26/17 05:58 155/95 10/26/17 05:49 155/95 10/26/17 04:00 98.2 79 20 155/95 95 98.2 10/26/17 04:00 75 10/26/17 00:08 153/94 10/26/17 00:00 80 10/26/17 00:00 98.7 81 20 153/94 96 98.7 10/25/17 22:00 162/93 10/25/17 22:00 162/93 10/25/17 21:00 162/93 10/25/17 20:00 99.1 84 20 162/93 95 99.1 10/25/17 20:00 91 Intake and Output 10/25/17 10/26/17 19:00 07:00 Intake Total 292.5 ml 1142.5 ml Output Total 50 ml 100 ml Balance 242.5 ml 1042.5 ml IV Total 292.5 ml 1142.5 ml Emesis 50 ml 100 ml # Voids 3 Laboratory Tests 10/26/17 05:05: White Blood Count 11.8H, Red Blood Count 5.15, Hemoglobin 13.7, Hematocrit 40.6 , Mean Corpuscular Volume 79L, Mean Corpuscular Hemoglobin 26.7L, Mean Corpuscular Hemoglobin Concent 33.8, Red Cell Distribution Width 12.7, Platelet Count 329, Mean Platelet Volume 9.7, Neutrophils (%) (Auto) 78.2H, Lymphocytes ( %) (Auto) 12.6L, Monocytes (%) (Auto) 8.0, Eosinophils (%) (Auto) 0.7, Basophils (%) (Auto) 0.5, Sodium Level 132L, Potassium Level 3.2L, Chloride Level 95L, Carbon Dioxide Level 25, Anion Gap 13, Blood Urea Nitrogen 10, Creatinine 1.0, Estimat Glomerular Filtration Rate > 60, Glucose Level 92, Calcium Level 9.0 Height (Feet): 5 Height (Inches): 5.00 Weight (Pounds): 160 Cardiovascular: normal rate Respiratory/Chest: lungs clear Abdomen: non tender Josseline Don MD Oct 26, 2017 18:41
[2017-10-26] MEDS ORDERED: Enoxaparin 40mg Inj SUBQ SCH (21:00)
[2017-10-27] VITALS (12 sets, daily range): BP systolic 129–174; BP diastolic 67–97
[2017-10-27] MEDS: Piperacillin/Tazobactam 3.375 GM in D5W 110 ML IVPB SCH ×3 (00:56→09:00)
[2017-10-27] MEDS: Metoclopramide 10mg/2ml Inj IVP SCH ×4 (05:36→21:24)
[2017-10-27] MEDS: HydrALAZINE 50mg tab ORAL SCH ×4 (05:44→22:00)
[2017-10-27] MEDS: Enalaprilat 2.5mg/2ml Inj IV SCH ×3 (05:45→12:32)
[2017-10-27] MEDS: Docusate Sod/Senna tab ORAL SCH ×3 (05:45→14:00)
[2017-10-27] MEDS ORDERED: LR 1000ml ONE (08:00)
[2017-10-27] MEDS ORDERED: Sterile Water Irrig 1000ml IRRIG ONE (08:00)
[2017-10-27] MEDS ORDERED: NS Irrig 1000ml ONE (08:00)
[2017-10-27] MEDS: Lisinopril 20mg tab ORAL SCH ×2 (08:58→21:00)
[2017-10-27] MEDS ORDERED: Spironolactone 25mg tab ORAL SCH (09:00)
--- NOTE | 2017-10-27 10:26 | GI Progress Note ---
Assessment/Plan Problems: (1) Post-operative nausea and vomiting ICD Codes: R11.2 - Nausea with vomiting, unspecified; Z98.890 - Other specified postprocedural states SNOMED: 9055795 (2) Abdominal pain ICD Codes: R10.9 - Unspecified abdominal pain SNOMED: 02148792 Qualifiers: Qualified Codes: R10.30 - Lower abdominal pain, unspecified (3) Anemia ICD Codes: D64.9 - Anemia, unspecified SNOMED: 895907470 (4) Acute appendicitis ICD Codes: K35.80 - Unspecified acute appendicitis SNOMED: 66320159 Qualifiers: Qualified Codes: K35.80 - Unspecified acute appendicitis Status: stable Status Narrative Discussed with Dr. Min. Assessment/Plan post operative Nausea without vomiting pain 3/10 at surgical sites, minimal drainage elevated lipase >> now normal distended abdomen >> KUB ordered/reviewed >> no abnormality diet per surgery anemia work up monitor H&H, prn transfusions pain mgmt bowel regime zofran prn, compazine for persistent nausea ppi fu labs, lipase recommend patient for initial colonoscopy next year at age 48 The patient was seen and examined at bedside and all new and available data was reviewed in the patients chart. I agree with the above findings, impression and plan. (Patient seen earlier today. Signature stamp does not reflect patient encounter time.). - Son Min MD Subjective Subjective 3/10 abdominal pain ambulating having nausea without vomiting Objective Last 24 Hour Vital Signs Date Time Temp Pulse Resp B/P (MAP) Pulse Ox O2 Delivery O2 Flow Rate FiO2 10/27/17 08:58 174/97 10/27/17 08:58 83 174/97 10/27/17 08:00 98.1 83 20 174/97 100 98.1 10/27/17 04:00 98.5 77 19 130/72 100 98.5 10/27/17 00:37 98.5 73 18 135/75 95 98.5 10/27/17 00:00 135/75 10/26/17 22:14 137/75 10/26/17 22:00 137/75 10/26/17 20:28 158/98 10/26/17 20:00 98.7 88 17 139/75 95 98.7 10/26/17 18:50 77 158/98 10/26/17 17:44 165/95 10/26/17 16:00 99.2 79 20 165/95 98 Room Air 99.2 10/26/17 14:33 151/95 10/26/17 14:33 151/95 10/26/17 12:00 97.8 83 20 150/94 97 97.8 10/26/17 12:00 106 10/26/17 11:58 150/94 Intake and Output 10/26/17 10/27/17 19:00 07:00 Intake Total 240 ml Balance 240 ml Intake Oral 240 ml # Voids 1 4 Laboratory Tests Test 10/27/17 09:30 White Blood Count Pending Red Blood Count Pending Hemoglobin Pending Hematocrit Pending Mean Corpuscular Volume Pending Mean Corpuscular Hemoglobin Pending Mean Corpuscular Hemoglobin Concent Pending Red Cell Distribution Width Pending Platelet Count Pending Mean Platelet Volume Pending Neutrophils (%) (Auto) Pending Lymphocytes (%) (Auto) Pending Monocytes (%) (Auto) Pending Eosinophils (%) (Auto) Pending Basophils (%) (Auto) Pending Sodium Level Pending Potassium Level Pending Chloride Level Pending Carbon Dioxide Level Pending Blood Urea Nitrogen Pending Creatinine Pending Estimat Glomerular Filtration Rate Pending Glucose Level Pending Calcium Level Pending Total Bilirubin Pending Aspartate Amino Transf (AST/SGOT) Pending Alanine Aminotransferase (ALT/SGPT) Pending Alkaline Phosphatase Pending C-Reactive Protein, Quantitative Pending Total Protein Pending Albumin Pending Globulin Pending Amylase Level Pending Lipase Pending Height (Feet): 5 Height (Inches): 5.00 Weight (Pounds): 160 General Appearance: WD/WN, no apparent distress, alert Cardiovascular: normal rate Respiratory/Chest: normal breath sounds, no respiratory distress Abdominal Exam: normal bowel sounds, non tender, soft Extremities: normal range of motion, non-tender Simon Chaves NP Oct 27, 2017 10:26
[2017-10-27 10:29] LABS: EOSINOPHILS % (AUTO) 0.6 % (0.0-3.0); HEMATOCRIT 46.7 % (37.0-47.0); HEMOGLOBIN 14.7 G/DL (12.0-16.0); LYMPHOCYTES % (AUTO) 13.5 % (20.0-45.0); MEAN CORPUSCULAR VOLUME 79 FL (80-99); MONOCYTES % (AUTO) 7.5 % (1.0-10.0); NEUTROPHILS % (AUTO) 77.4 % (45.0-75.0); PLATELET COUNT 376 K/UL (150-450); RED BLOOD COUNT 5.89 M/UL (4.20-5.40); RED CELL DISTRIBUTION WIDTH 12.9 % (11.6-14.8); WHITE BLOOD COUNT 11.4 K/UL (4.8-10.8)
[2017-10-27 10:58] LABS: ALANINE AMINOTRANSFERASE 37 U/L (12-78); ALBUMIN 3.7 G/DL (3.4-5.0); ALBUMIN/GLOBULIN RATIO 0.8 (1.0-2.7); ALKALINE PHOSPHATASE 49 U/L (46-116); AMYLASE 145 U/L (25-115); ANION GAP 13 mmol/L (5-15); ASPARTATE AMINO TRANSFERASE 35 U/L (15-37); BILIRUBIN,TOTAL 0.5 MG/DL (0.2-1.0); BLOOD UREA NITROGEN 11 mg/dL (7-18); CALCIUM 9.2 MG/DL (8.5-10.1); CARBON DIOXIDE 25 MMOL/L (21-32); CHLORIDE 95 MMOL/L (98-107); CREATININE 0.9 MG/DL (0.55-1.30); POTASSIUM 3.3 MMOL/L (3.5-5.1); SODIUM 133 MMOL/L (136-145)
--- NOTE | 2017-10-27 11:41 | Infectious Diseases Prog Note ---
Assessment/Plan Assessment/Plan antibiotics : zosyn A 1. acute appendicitis s/p lap appendectomy 2. leucocytosis improving 3. hypertension P 1. continue zosyn 2. will follow up cultures Subjective Constitutional: Denies: fever, chills Gastrointestinal/Abdominal: Reports: nausea, vomiting; Denies: diarrhea Musculoskeletal: Reports: pain - decreased Allergies: Coded Allergies: No Known Allergies (Unverified , 01/11/15) Objective Vital Signs Last 24 Hour Vital Signs Date Time Temp Pulse Resp B/P (MAP) Pulse Ox O2 Delivery O2 Flow Rate FiO2 10/27/17 08:58 174/97 10/27/17 08:58 83 174/97 10/27/17 08:00 98.1 83 20 174/97 100 98.1 10/27/17 04:00 98.5 77 19 130/72 100 98.5 10/27/17 00:37 98.5 73 18 135/75 95 98.5 10/27/17 00:00 135/75 10/26/17 22:14 137/75 10/26/17 22:00 137/75 10/26/17 20:28 158/98 10/26/17 20:00 98.7 88 17 139/75 95 98.7 10/26/17 18:50 77 158/98 10/26/17 17:44 165/95 10/26/17 16:00 99.2 79 20 165/95 98 Room Air 99.2 10/26/17 14:33 151/95 10/26/17 14:33 151/95 10/26/17 12:00 97.8 83 20 150/94 97 97.8 10/26/17 12:00 106 10/26/17 11:58 150/94 Height (Feet): 5 Height (Inches): 5.00 Weight (Pounds): 160 Respiratory/Chest: lungs clear Cardiovascular: normal rate, regular rhythm, no gallop/murmur Abdomen: other - wounds clean Extremities: no edema Laboratory Tests Test 10/27/17 09:30 White Blood Count 11.4 K/UL (4.8-10.8) H Red Blood Count 5.89 M/UL (4.20-5.40) H Hemoglobin 14.7 G/DL (12.0-16.0) Hematocrit 46.7 % (37.0-47.0) Mean Corpuscular Volume 79 FL (80-99) L Mean Corpuscular Hemoglobin 24.9 PG (27.0-31.0) L Mean Corpuscular Hemoglobin Concent 31.4 G/DL (32.0-36.0) L Red Cell Distribution Width 12.9 % (11.6-14.8) Platelet Count 376 K/UL (150-450) Mean Platelet Volume 8.9 FL (6.5-10.1) Neutrophils (%) (Auto) 77.4 % (45.0-75.0) H Lymphocytes (%) (Auto) 13.5 % (20.0-45.0) L Monocytes (%) (Auto) 7.5 % (1.0-10.0) Eosinophils (%) (Auto) 0.6 % (0.0-3.0) Basophils (%) (Auto) 1.0 % (0.0-2.0) Sodium Level 133 MMOL/L (136-145) L Potassium Level 3.3 MMOL/L (3.5-5.1) L Chloride Level 95 MMOL/L (98-107) L Carbon Dioxide Level 25 MMOL/L (21-32) Anion Gap 13 mmol/L (5-15) Blood Urea Nitrogen 11 mg/dL (7-18) Creatinine 0.9 MG/DL (0.55-1.30) Estimat Glomerular Filtration Rate > 60 mL/min (>60) Glucose Level 80 MG/DL (74-106) Calcium Level 9.2 MG/DL (8.5-10.1) Total Bilirubin 0.5 MG/DL (0.2-1.0) Aspartate Amino Transf (AST/SGOT) 35 U/L (15-37) Alanine Aminotransferase (ALT/SGPT) 37 U/L (12-78) Alkaline Phosphatase 49 U/L (46-116) C-Reactive Protein, Quantitative 1.5 mg/dL (0.00-0.90) H Total Protein 8.1 G/DL (6.4-8.2) Albumin 3.7 G/DL (3.4-5.0) Globulin 4.4 g/dL Albumin/Globulin Ratio 0.8 (1.0-2.7) L Amylase Level 145 U/L (25-115) H Lipase 879 U/L (73-393) H Current Medications Medications (Trade) Dose Ordered Sig/Janet Route PRN Reason Start Time Stop Time Status Last Admin Dose Admin Acetaminophen (Tylenol) 650 mg Q4H PRN ORAL Mild Pain/Temp > 100.5 10/26/17 17:00 11/24/17 16:59 Amlodipine Besylate (Norvasc) 10 mg DAILY ORAL 10/27/17 09:00 11/23/17 08:59 10/27/17 08:58 Clonidine HCl (Catapres Tab) 0.1 mg Q4H PRN ORAL bp over 160 when in no pain 10/26/17 17:00 11/22/17 16:59 Clonidine HCl (Catapres Tab) 0.2 mg EVERY 8 HOURS ORAL 10/26/17 22:00 11/23/17 17:59 Diatrizoate Meglum/ Diatrizoate Sod (Gastrografin) 30 ml NOW PRN ORAL Radiology Procedure 10/27/17 12:45 10/28/17 12:44 Enalaprilat (Vasotec) 2.5 mg EVERY 6 HOURS IV 10/26/17 18:00 11/25/17 17:59 10/26/17 17:44 Enoxaparin Sodium (Lovenox) 40 mg Q24H SUBQ 10/26/17 21:00 11/21/17 20:59 10/26/17 20:30 Hydralazine HCl (Apresoline) 50 mg Q8HR ORAL 10/26/17 22:00 11/22/17 11:59 10/26/17 22:14 Iopamidol (Isovue-300 100ml) 100 ml NOW PRN INJ Radiology Procedure 10/27/17 12:45 10/28/17 12:44 Lisinopril (Prinivil) 20 mg Q12HR ORAL 10/26/17 21:00 11/22/17 20:59 10/27/17 08:58 Metoclopramide HCl (Reglan) 10 mg EVERY 8 HOURS IVP 10/26/17 22:00 11/20/17 21:59 Ondansetron HCl (Zofran) 4 mg Q6H PRN IVP Nausea & Vomiting 10/26/17 17:00 11/21/17 16:59 10/27/17 06:21 Piperacillin Sod/ Tazobactam Sod 3.375 gm/Dextrose 110 ml @ 27.5 mls/hr Q8H IVPB 10/26/17 17:00 10/29/17 16:59 10/27/17 00:56 Senna/Docusate Sodium (Maritza-Colace) 1 tab EVERY 8 HOURS ORAL 10/26/17 22:00 11/21/17 13:59 10/26/17 22:06 Sodium Chloride 1,000 ml @ 50 mls/hr Q20H IV 10/26/17 17:00 11/24/17 16:59 10/26/17 17:43 Tramadol HCl (Ultram) 50 mg Q4H PRN ORAL PAIN 4-10 10/26/17 17:00 11/01/17 16:59 MIC CHOI Oct 27, 2017 11:41
[2017-10-27] MEDS ORDERED: Gastrograffin 30ml ORAL PRN (12:45)
[2017-10-27] MEDS ORDERED: Isovue-300 100ml vial INJ PRN (12:45)
--- NOTE | 2017-10-27 13:15 | Diagnostic Imaging Report ---
Clinical Indication: Abdominal distention Technique: No oral contrast utilized, per emergency room physician request IV administration nonionic contrast. Venous phase spiral acquisition obtained through the abdomen and pelvis. Multiplanar reconstructions were generated. Total dose length product 756.91 mGycm. CTDIvol(s) 15.47 mGy. Dose reduction achieved using automated exposure control Comparison: 10/21/2017 Findings: Interim appendectomy. Surgical clips and pam are seen in the right lower quadrant. No extraluminal gas or fluid demonstrated Proximal and mid small bowel loops are markedly dilated, and there is very slow forward transit of contrast. In the left lower quadrant, just lateral to the rectus abdominis muscle, there is a small hernia into which herniates a knuckle of small bowel. There is definitely collapsed small bowel exiting it, and there appears to be dilated and then tapered segment of small bowel entering into it, although this is less well-demonstrated. A small amount of free intraperitoneal fluid is seen adjacent to this in the left paracolic gutter. Small amount of free fluid is also seen in the right lower quadrant. The colon is nondistended, contains contrast from previous CT scan. There is some edema of the tissues surrounding the distal esophagus. No free intraperitoneal air is demonstrated. A small amount of gas is seen in the right lower quadrant anterior abdominal wall, presumably related to recent surgery. There is some edema of the subcutaneous fat of the abdominal wall and anterior pelvic wall and lateral buttock region. There are bilateral breast implants. The left lung bases demonstrate some atelectasis. The bones are unremarkable. The liver, gallbladder, bile ducts, pancreas, spleen, adrenals, kidneys are unremarkable. The uterus demonstrate multiple hypoattenuating masses, consistent with multiple fibroids. It is enlarged. No pelvic mass or adenopathy otherwise. There is some air in the bladder lumen. Impression: Evidence of high-grade small bowel obstruction, presumably due to a left lower quadrant lateral abdominal wall hernia. Given history of recent surgery and discussion with referring physician, most likely represents a hernia at a trocar site. However, the location is typical of the spiculated hernia. Postsurgical changes, as described Enlarged fibroid uterus, also previously reported Air in the bladder lumen, presumably related to recent catheterization Edema of the bilateral flank and abdominal wall subcutaneous fat Other findings as noted, including bilateral breast implants, left basilar pulmonary atelectasis Images reviewed in person with Dr. Leone The CT scanner at [facility] is accredited by the [employer] and the scans are performed using protocols designed to limit radiation exposure to as low as reasonably achievable to attain images of sufficient resolution adequate for diagnostic evaluation.
--- NOTE | 2017-10-27 13:17 | General Surgery Progress Note ---
General Surgery-Progress Note Subjective Procedure Performed Laparoscopic Appendectomy Objective Last 24 Hour Vital Signs Date Time Temp Pulse Resp B/P (MAP) Pulse Ox O2 Delivery O2 Flow Rate FiO2 10/27/17 12:32 152/90 10/27/17 12:28 98.7 79 20 152/90 100 98.7 10/27/17 08:58 174/97 10/27/17 08:58 83 174/97 10/27/17 08:00 98.1 83 20 174/97 100 98.1 10/27/17 04:00 98.5 77 19 130/72 100 98.5 10/27/17 00:37 98.5 73 18 135/75 95 98.5 10/27/17 00:00 135/75 10/26/17 22:14 137/75 10/26/17 22:00 137/75 10/26/17 20:28 158/98 10/26/17 20:00 98.7 88 17 139/75 95 98.7 10/26/17 18:50 77 158/98 10/26/17 17:44 165/95 10/26/17 16:00 99.2 79 20 165/95 98 Room Air 99.2 10/26/17 14:33 151/95 10/26/17 14:33 151/95 I&O Intake and Output 10/26/17 10/27/17 19:00 07:00 Intake Total 240 ml Balance 240 ml Intake Oral 240 ml # Voids 1 4 Drains: none Abdomen: soft, distended, tenderness, absent bowel sounds Extremities: no edema, no tenderness Laboratory Tests Test 10/27/17 09:30 White Blood Count 11.4 K/UL (4.8-10.8) H Red Blood Count 5.89 M/UL (4.20-5.40) H Hemoglobin 14.7 G/DL (12.0-16.0) Hematocrit 46.7 % (37.0-47.0) Mean Corpuscular Volume 79 FL (80-99) L Mean Corpuscular Hemoglobin 24.9 PG (27.0-31.0) L Mean Corpuscular Hemoglobin Concent 31.4 G/DL (32.0-36.0) L Red Cell Distribution Width 12.9 % (11.6-14.8) Platelet Count 376 K/UL (150-450) Mean Platelet Volume 8.9 FL (6.5-10.1) Neutrophils (%) (Auto) 77.4 % (45.0-75.0) H Lymphocytes (%) (Auto) 13.5 % (20.0-45.0) L Monocytes (%) (Auto) 7.5 % (1.0-10.0) Eosinophils (%) (Auto) 0.6 % (0.0-3.0) Basophils (%) (Auto) 1.0 % (0.0-2.0) Sodium Level 133 MMOL/L (136-145) L Potassium Level 3.3 MMOL/L (3.5-5.1) L Chloride Level 95 MMOL/L (98-107) L Carbon Dioxide Level 25 MMOL/L (21-32) Anion Gap 13 mmol/L (5-15) Blood Urea Nitrogen 11 mg/dL (7-18) Creatinine 0.9 MG/DL (0.55-1.30) Estimat Glomerular Filtration Rate > 60 mL/min (>60) Glucose Level 80 MG/DL (74-106) Calcium Level 9.2 MG/DL (8.5-10.1) Total Bilirubin 0.5 MG/DL (0.2-1.0) Aspartate Amino Transf (AST/SGOT) 35 U/L (15-37) Alanine Aminotransferase (ALT/SGPT) 37 U/L (12-78) Alkaline Phosphatase 49 U/L (46-116) C-Reactive Protein, Quantitative 1.5 mg/dL (0.00-0.90) H Total Protein 8.1 G/DL (6.4-8.2) Albumin 3.7 G/DL (3.4-5.0) Globulin 4.4 g/dL Albumin/Globulin Ratio 0.8 (1.0-2.7) L Amylase Level 145 U/L (25-115) H Lipase 879 U/L (73-393) H Assessment Post-op Diagnosis Acute Appendicitis Additional Comments incarcerated ventral hernia Plan Additional Comments requires release of incarceration and repair of hernia Rajni Leone MD Oct 27, 2017 13:17
[2017-10-27] MEDS ORDERED: Bupivacaine 0.25% Inj 30ml INJ ONE (13:44)
[2017-10-27] MEDS ORDERED: NeoSporin Gu Irrig 1ml Amp IRRIG ONE (13:44)
[2017-10-27] MEDS ORDERED: Bacitracin 50000 Units Vial ONE (13:44)
[2017-10-27] MEDS ORDERED: Zemuron 50mg/5ml Inj IV ONE (14:41)
[2017-10-27] MEDS ORDERED: fentaNYL 100 mcg/2 mL IV ONE (14:42)
[2017-10-27] MEDS ORDERED: Midazolam 2mg/2ml Inj ONE (14:42)
[2017-10-27] MEDS ORDERED: Propofol 200mg/20ml IV ONE (14:43)
[2017-10-27] MEDS ORDERED: Succinylcholine 20mg/ml 10ml vial ONE (15:31)
--- NOTE | 2017-10-27 15:39 | Pre-Procedure Note/Attestation ---
Pre-Procedure Note/Attestation Complete Prior to Procedure Planned Procedure: left Procedure Narrative: repair of incarcerated ventral hernia Indications for Procedure Pre-Operative Diagnosis: incarcerated ventral hernia Attestation I attest that I discussed the nature of the procedure; its benefits; risks and complications; and alternatives (and the risks and benefits of such alternatives ), prior to the procedure, with the patient (or the patient's legal petroleum products sales representative). I attest that, if there was a reasonable possibility of needing a blood transfusion, the patient (or the patient's legal petroleum products sales representative) was given the [facility] standardized written summary, pursuant to the [place] Blood Safety Act ([place] Health and Safety Code # 1645, as amended). I attest that I re-evaluated the patient just prior to the surgery and that there has been no change in the patient's H&P, except as documented below: Rajni Leone MD Oct 27, 2017 15:39
--- NOTE | 2017-10-27 15:52 | Diagnostic Imaging Report ---
Indication: Small bowel obstruction, abdominal wall hernia demonstrated on recent CT scan; for localization of the hernia sac Technique: Limited spiral acquisitions obtained through the lower abdomen and upper pelvis with grid markers in the expected region of the hernia. The location of the skin overlying the hernia was marked for subsequent surgery. No oral or IV contrast utilized, as it is not needed. Total dose length product 446.23 mGycm. CTDIvol(s) 16.82,17.49 mGy. Dose reduction achieved using automated exposure control Comparison: CT scan of earlier the same day Findings: Exam demonstrates left abdominal wall hernia deep to grid markers Impression: Limited CT for localization of left abdominal wall ventral hernia, for subsequent surgery, as described The CT scanner at [facility] is accredited by the [employer] and the scans are performed using protocols designed to limit radiation exposure to as low as reasonably achievable to attain images of sufficient resolution adequate for diagnostic evaluation.
[2017-10-27] MEDS ORDERED: NS Irrig 1000ml IRRIG ONE (15:55)
--- NOTE | 2017-10-27 15:55 | Nephrology Progress Note ---
Assessment/Plan Problem List: (1) Acute appendicitis (2) UTI (urinary tract infection) (3) Post-operative nausea and vomiting (4) Hypertension Assessment HTN ooc Post op appendicitis electrolyte abnormalities High Lipase Plan up clonidine dose K supp as needed Dilaudid IV for pain IV protonix hydralazine, lisinopril clonidine for HTN change norvasc to procardia per orders per consultants Subjective ROS Limited/Unobtainable: No Constitutional: Reports: malaise Objective Objective Last 24 Hour Vital Signs Date Time Temp Pulse Resp B/P (MAP) Pulse Ox O2 Delivery O2 Flow Rate FiO2 10/27/17 14:11 160/93 10/27/17 12:32 152/90 10/27/17 12:28 98.7 79 20 152/90 100 98.7 10/27/17 08:58 174/97 10/27/17 08:58 83 174/97 10/27/17 08:00 98.1 83 20 174/97 100 98.1 10/27/17 04:00 98.5 77 19 130/72 100 98.5 10/27/17 00:37 98.5 73 18 135/75 95 98.5 10/27/17 00:00 135/75 10/26/17 22:14 137/75 10/26/17 22:00 137/75 10/26/17 20:28 158/98 10/26/17 20:00 98.7 88 17 139/75 95 98.7 10/26/17 18:50 77 158/98 10/26/17 17:44 165/95 10/26/17 16:00 99.2 79 20 165/95 98 Room Air 99.2 Intake and Output 10/26/17 10/27/17 19:00 07:00 Intake Total 240 ml Balance 240 ml Intake Oral 240 ml # Voids 1 4 Laboratory Tests 10/27/17 09:30: White Blood Count 11.4H, Red Blood Count 5.89H, Hemoglobin 14.7, Hematocrit 46.7 , Mean Corpuscular Volume 79L, Mean Corpuscular Hemoglobin 24.9L, Mean Corpuscular Hemoglobin Concent 31.4L, Red Cell Distribution Width 12.9, Platelet Count 376, Mean Platelet Volume 8.9, Neutrophils (%) (Auto) 77.4H, Lymphocytes (%) (Auto) 13.5L, Monocytes (%) (Auto) 7.5, Eosinophils (%) (Auto) 0.6, Basophils (%) (Auto) 1.0, Sodium Level 133L, Potassium Level 3.3L, Chloride Level 95L, Carbon Dioxide Level 25, Anion Gap 13, Blood Urea Nitrogen 11, Creatinine 0.9, Estimat Glomerular Filtration Rate > 60, Glucose Level 80, Calcium Level 9.2, Total Bilirubin 0.5, Aspartate Amino Transf (AST/SGOT) 35, Alanine Aminotransferase (ALT/SGPT) 37, Alkaline Phosphatase 49, C-Reactive Protein, Quantitative 1.5H, Total Protein 8.1, Albumin 3.7, Globulin 4.4, Albumin/Globulin Ratio 0.8L, Amylase Level 145H, Lipase 879H Height (Feet): 5 Height (Inches): 5.00 Weight (Pounds): 160 General Appearance: no apparent distress Cardiovascular: normal rate Respiratory/Chest: decreased breath sounds Abdomen: distended ANSELMO WATKINS Oct 27, 2017 15:55
[2017-10-27] MEDS ORDERED: LR 1000ml 1,000 ML IVLG SCH (16:10)
[2017-10-27] MEDS ORDERED: fentaNYL 100 mcg/2 mL IV PRN (16:15)
[2017-10-27] MEDS ORDERED: Meperidine 50mg/ml Inj(FOR RIGORS ONLY) IVP PRN (16:15)
[2017-10-27] MEDS ORDERED: DiphenhydrAMINE 50mg/ml Inj IVP PRN (16:15)
[2017-10-27] MEDS ORDERED: LORazepam Inj 2mg/ml 1ml IV PRN (16:15)
--- NOTE | 2017-10-27 16:15 | Anethesia Preoperative Eval ---
Anesthesia Pre-op PMH/ROS General Date of Evaluation: Oct 27, 2017 Time of Evaluation: 15:20 Anesthesiologist: Fidel ASA Score: ASA 1 Mallampati Score Class I : Soft palate, uvula, fauces, pillars visible Class II: Soft palate, uvula, fauces visible Class III: Soft palate, base of uvula visible Class IV: Only hard plate visible Mallampati Classification: Class I Surgeon: Sulema Diagnosis: Incarcerated ventral hernia Surgical Procedure: Reduction of incarcerated ventral hernia Family History: no anesthesia problems Allergies: Coded Allergies: No Known Allergies (Unverified , 01/11/15) Medications: see eMAR Past Medical History Cardiovascular: Denies: HTN, CAD, NV, valve dz, arrhythmia, other Pulmonary: Denies: asthma, COPD, TRISTON, other Gastrointestinal/Genitourinary: Denies: GERD, CRI, ESRD, other Neurologic/Psychiatric: Denies: dementia, CVA, depression/anxiety, TIA, other Endocrine: Denies: DM, hypothyroidism, steroids, other HEENT: Denies: cataract (L), cataract (R), glaucoma, KLAMATH (L), KLAMATH (R), other Hematology/Immune: Denies: anemia, DVT, bleeding disorder, other Musculoskeletal/Integumentary: Denies: OA, RA, DJD, DDD, edema, other PMH Narrative: Denies significant PMH PSxH Narrative: Lap appy, breast aug, D&C Anesthesia Pre-op Phys. Exam Physician Exam Last Vital Signs Date Time Temp Pulse Resp B/P (MAP) Pulse Ox O2 Delivery O2 Flow Rate FiO2 10/27/17 14:11 160/93 10/27/17 12:28 98.7 79 20 100 98.7 10/26/17 16:00 Room Air 10/21/17 21:10 2.0 Constitutional: NAD Neurologic: CN 2-12 intact Cardiovascular: RRR, no M/R/G Respiratory: CTA Gastrointestinal: other - tender, distended Airway Exam Mallampati Score: Class I MO: full ROM: full Teeth: intact Anesthesia Pre-op A/P Labs Hematology Test 10/27/17 09:30 White Blood Count 11.4 K/UL (4.8-10.8) H Red Blood Count 5.89 M/UL (4.20-5.40) H Hemoglobin 14.7 G/DL (12.0-16.0) Hematocrit 46.7 % (37.0-47.0) Mean Corpuscular Volume 79 FL (80-99) L Mean Corpuscular Hemoglobin 24.9 PG (27.0-31.0) L Mean Corpuscular Hemoglobin Concent 31.4 G/DL (32.0-36.0) L Red Cell Distribution Width 12.9 % (11.6-14.8) Platelet Count 376 K/UL (150-450) Mean Platelet Volume 8.9 FL (6.5-10.1) Neutrophils (%) (Auto) 77.4 % (45.0-75.0) H Lymphocytes (%) (Auto) 13.5 % (20.0-45.0) L Monocytes (%) (Auto) 7.5 % (1.0-10.0) Eosinophils (%) (Auto) 0.6 % (0.0-3.0) Basophils (%) (Auto) 1.0 % (0.0-2.0) Chemistry Test 10/27/17 09:30 Sodium Level 133 MMOL/L (136-145) L Potassium Level 3.3 MMOL/L (3.5-5.1) L Chloride Level 95 MMOL/L (98-107) L Carbon Dioxide Level 25 MMOL/L (21-32) Anion Gap 13 mmol/L (5-15) Blood Urea Nitrogen 11 mg/dL (7-18) Creatinine 0.9 MG/DL (0.55-1.30) Estimat Glomerular Filtration Rate > 60 mL/min (>60) Glucose Level 80 MG/DL (74-106) Calcium Level 9.2 MG/DL (8.5-10.1) Total Bilirubin 0.5 MG/DL (0.2-1.0) Aspartate Amino Transf (AST/SGOT) 35 U/L (15-37) Alanine Aminotransferase (ALT/SGPT) 37 U/L (12-78) Alkaline Phosphatase 49 U/L (46-116) C-Reactive Protein, Quantitative 1.5 mg/dL (0.00-0.90) H Total Protein 8.1 G/DL (6.4-8.2) Albumin 3.7 G/DL (3.4-5.0) Globulin 4.4 g/dL Albumin/Globulin Ratio 0.8 (1.0-2.7) L Amylase Level 145 U/L (25-115) H Lipase 879 U/L (73-393) H Risk Assessment & Plan Assessment: Incarcerated hernia secondary to lap appy last week Plan: GETA, rapid sequence cricoid pressure Status Change Before Surgery: No Pre-Antibiotics Drug: Ancef Given Within 1 Hr of Incision: Yes Time Given: 15:45 Carlton Parra MD Oct 27, 2017 16:15
--- NOTE | 2017-10-27 16:16 | Immediate Post-Op Evaluation ---
Immediate Post-Op Evalulation Immediate Post-Op Evalulation Procedure: Recuduction of incarcerated hernia Date of Evaluation: Oct 27, 2017 Time of Evaluation: 14:55 IV Fluids: 350 Blood Pressure Systolic: 142 Blood Pressure Diastolic: 86 Pulse Rate: 98 Respiratory Rate: 17 O2 Sat by Pulse Oximetry: 100 Temperature (Fahrenheit): 98.9 Pain Score (1-10): 0 Nausea: No Vomiting: No Complications No complication Patient Status: awake, patent, extubated, none Hydration Status: adequate Drug: Ancef Given Within 1 Hr of Incision: Yes Time Given: 15:45 Carlton Parra MD Oct 27, 2017 16:16
--- NOTE | 2017-10-27 16:39 | Brief Operative Note ---
Immediate Post Operative Note Operative Note Pre-op Diagnosis: incarcerated ventral hernia Procedure: release of incarceration & repair of ventral hernia Post-op Diagnosis: incarcerated ventral hernia Post-op Diagnosis: same as pre-op Surgeon: Christina Prop Setter: none Anesthesiologist: Dr. Giron Anesthesia: general Specimen: none Complications: none Condition: stable Fluids: per anesthesialogist Estimated Blood Loss: minimal Drains: none Implant(s) used?: No Rajni Leone MD Oct 27, 2017 16:39
[2017-10-27] MEDS ORDERED: Acetaminophen 650 MG SUPP RECTAL PRN (16:45)
[2017-10-27] MEDS ORDERED: Hydromorphone 0.5mg/0.5ml inj IVP PRN (16:45)
[2017-10-27] MEDS ORDERED: Morphine Sulfate 4mg/ml Inj IVP PRN (16:45)
[2017-10-27] MEDS ORDERED: Metoclopramide 10mg/2ml Inj IVP PRN (16:45)
--- NOTE | 2017-10-27 18:35 | Cardiology Progress Note ---
Assessment/Plan Assessment/Plan 1. Accelerated hypertension, continue Enalaprilat. 2. Acute appendicitis, status post appendectomy. 3. Intractable nausea and vomiting, due to small bowel obstruction per CT scan of abdomen, s/p repair today. 4. Hypokalemia, replacement has been done. Subjective Subjective Transferred back to the surgical floor. Denies CP or SOB. Was found to have small bowel obstruction. Objective Last 24 Hour Vital Signs Date Time Temp Pulse Resp B/P (MAP) Pulse Ox O2 Delivery O2 Flow Rate FiO2 10/27/17 18:16 76 140/67 10/27/17 17:45 98.4 76 19 140/67 97 Room Air 98.4 10/27/17 17:30 98.5 71 17 142/81 100 Nasal Cannula 3.0 98.5 10/27/17 17:25 98.5 10/27/17 17:15 75 18 145/77 100 Nasal Cannula 3.0 10/27/17 17:05 82 13 144/78 100 Simple Mask 6.0 10/27/17 16:55 81 16 136/75 100 Simple Mask 6.0 10/27/17 16:55 98.9 10/27/17 16:50 86 19 136/85 98 Simple Mask 6.0 10/27/17 16:46 210.0 98 17 100 10/27/17 16:45 98.9 98 17 142/86 98 Simple Mask 6.0 98.9 10/27/17 14:11 160/93 10/27/17 12:32 152/90 10/27/17 12:28 98.7 79 20 152/90 100 98.7 10/27/17 08:58 174/97 10/27/17 08:58 83 174/97 10/27/17 08:00 98.1 83 20 174/97 100 98.1 10/27/17 04:00 98.5 77 19 130/72 100 98.5 10/27/17 00:37 98.5 73 18 135/75 95 98.5 10/27/17 00:00 135/75 10/26/17 22:14 137/75 10/26/17 22:00 137/75 10/26/17 20:28 158/98 10/26/17 20:00 98.7 88 17 139/75 95 98.7 10/26/17 18:50 77 158/98 Intake and Output 10/26/17 10/27/17 19:00 07:00 Intake Total 240 ml Balance 240 ml Intake Oral 240 ml # Voids 1 4 Laboratory Tests Test 10/27/17 09:30 White Blood Count 11.4 K/UL (4.8-10.8) H Red Blood Count 5.89 M/UL (4.20-5.40) H Hemoglobin 14.7 G/DL (12.0-16.0) Hematocrit 46.7 % (37.0-47.0) Mean Corpuscular Volume 79 FL (80-99) L Mean Corpuscular Hemoglobin 24.9 PG (27.0-31.0) L Mean Corpuscular Hemoglobin Concent 31.4 G/DL (32.0-36.0) L Red Cell Distribution Width 12.9 % (11.6-14.8) Platelet Count 376 K/UL (150-450) Mean Platelet Volume 8.9 FL (6.5-10.1) Neutrophils (%) (Auto) 77.4 % (45.0-75.0) H Lymphocytes (%) (Auto) 13.5 % (20.0-45.0) L Monocytes (%) (Auto) 7.5 % (1.0-10.0) Eosinophils (%) (Auto) 0.6 % (0.0-3.0) Basophils (%) (Auto) 1.0 % (0.0-2.0) Sodium Level 133 MMOL/L (136-145) L Potassium Level 3.3 MMOL/L (3.5-5.1) L Chloride Level 95 MMOL/L (98-107) L Carbon Dioxide Level 25 MMOL/L (21-32) Anion Gap 13 mmol/L (5-15) Blood Urea Nitrogen 11 mg/dL (7-18) Creatinine 0.9 MG/DL (0.55-1.30) Estimat Glomerular Filtration Rate > 60 mL/min (>60) Glucose Level 80 MG/DL (74-106) Calcium Level 9.2 MG/DL (8.5-10.1) Total Bilirubin 0.5 MG/DL (0.2-1.0) Aspartate Amino Transf (AST/SGOT) 35 U/L (15-37) Alanine Aminotransferase (ALT/SGPT) 37 U/L (12-78) Alkaline Phosphatase 49 U/L (46-116) C-Reactive Protein, Quantitative 1.5 mg/dL (0.00-0.90) H Total Protein 8.1 G/DL (6.4-8.2) Albumin 3.7 G/DL (3.4-5.0) Globulin 4.4 g/dL Albumin/Globulin Ratio 0.8 (1.0-2.7) L Amylase Level 145 U/L (25-115) H Lipase 879 U/L (73-393) H Objective GENERAL: The patient is a very unfortunate 47-year-old female, in no apparent respiratory distress. She is nauseous. HEENT: Atraumatic and normocephalic. Pupils are equal, round, and reactive to light and accommodation. Extraocular muscles intact. NECK: JVP less than 5 cm. No carotid bruits. Carotid upstrokes 2+ bilaterally. CARDIOVASCULAR: Normal S1, S2. Tachycardic. Regular rate and rhythm. No murmurs, gallops, or rubs. LUNGS: Clear to auscultation bilaterally. ABDOMEN: Soft, nontender, and nondistended. No hepatosplenomegaly. Positive bowel sounds. EXTREMITIES: No evidence of edema, clubbing, or cyanosis. Alfa Wilhelm MD Oct 27, 2017 18:35
[2017-10-27] MEDS: D5 1/2NS w/KCl 20mEq 1,000 ML IV SCH (18:48)
[2017-10-27] MEDS: Hydromorphone 0.5mg/0.5ml inj IVP PRN ×2 (18:56→22:00)
--- NOTE | 2017-10-27 19:45 | Operative Note - Dictated ---
DATE OF OPERATION: 10/27/2017 PREOPERATIVE DIAGNOSIS: Incarcerated ventral hernia with small-bowel obstruction. POSTOPERATIVE DIAGNOSIS: Incarcerated ventral hernia with small-bowel obstruction. OPERATION: Ventral herniorrhaphy and release of incarceration. COMPLICATION: None. SURGEON: Rajni Leone M.D. MACHINE SETTER AUTOMATIC: None. ANESTHESIA: General with endotracheal tube. ANESTHESIOLOGIST: Dr. Parra. INDICATION: This is a 47-year-old female, who underwent laparoscopy appendectomy on October 21, 2017. In the postoperative course, the patient did not have bowel movement and she was nauseated with occasional vomiting, but she did not complain of abdominal pain where she was asked repeatedly and every time, she mentioned that she did not have abdominal pain. Her abdomen is usually protuberant and she felt that the contour of the abdomen was normal. Physical examination failed to show tenderness of the abdomen then and besides that, she did not have any bowel sounds. Two to three days ago, she passed a large amount of gas, but no bowel movement. As obstipation was not normal for this kind of surgery and as there were no physical findings of this obstipation, finally yesterday a CAT scan of the abdomen was ordered and it was noticed that the patient had a small-bowel obstruction due to the incarceration of the small bowel in a ventral hernia which seemed to be the trocar site in the left lower quadrant of the abdomen and so the decision was made for release of this incarceration and repair of the hernia. DESCRIPTION OF PROCEDURE: The patient was placed supine on the operating table and after general anesthesia with endotracheal tube, the abdomen was properly prepped and draped. The incision at the trocar site of the left lower quadrant was opened up and this incision was extended. The incision was carried through the subcutaneous tissue reached a small loop of small bowel, which was obviously protruding from the trocar site in this area. The opening through the abdomen was extended and the small bowel was reduced into the intraperitoneal cavity. The patient had some intra-abdominal serous fluid which was aspirated and then the opening in the abdominal wall was approximated with multiple interrupted suture of #1 Prolene after this repair and then the repair was reinforced with running suture of #0 Prolene. The cavity and the incision was thoroughly irrigated with antibiotic solution and then infiltrated with 30 mL of Marcaine 0.25%. The subcutaneous tissue was approximated with running suture of 3-0 plain catgut and the skin incision was approximated with running subcuticular suture of 4-0 chromic. It should be noted that the small bowel loop which was incarcerated was completely pink and the circulation was not compromised. The patient tolerated the procedure very well and was transferred to recovery room in stable condition extubated. COUNT: The sponge and needle count correct. ESTIMATED BLOOD LOSS: 5 mL. CONDITION OF THE PATIENT: At the end of the procedure, she was stable. Rajni Leone M.D. DR: Quentin JOB#: [id number] CC: CASH
--- NOTE | 2017-10-27 20:29 | General Progress Note ---
Assessment/Plan Problem List: (1) Abdominal pain ICD Codes: R10.9 - Unspecified abdominal pain SNOMED: 30816905 Qualifiers: Qualified Codes: R10.30 - Lower abdominal pain, unspecified (2) Acute appendicitis ICD Codes: K35.80 - Unspecified acute appendicitis SNOMED: 58799811 Qualifiers: Qualified Codes: K35.80 - Unspecified acute appendicitis (3) Post-operative nausea and vomiting ICD Codes: R11.2 - Nausea with vomiting, unspecified; Z98.890 - Other specified postprocedural states SNOMED: [id number] Assessment/Plan s/p appendectomy s/p vomit diet per surgeon persistent hypertension discussed w gi re above findings Subjective ROS Limited/Unobtainable: Yes Gastrointestinal/Abdominal: Reports: abdominal pain Allergies: Coded Allergies: No Known Allergies (Unverified , 01/11/15) Objective Last 24 Hour Vital Signs Date Time Temp Pulse Resp B/P (MAP) Pulse Ox O2 Delivery O2 Flow Rate FiO2 10/27/17 18:16 76 140/67 10/27/17 17:45 98.4 76 19 140/67 97 Room Air 98.4 10/27/17 17:30 98.5 71 17 142/81 100 Nasal Cannula 3.0 98.5 10/27/17 17:25 98.5 10/27/17 17:15 75 18 145/77 100 Nasal Cannula 3.0 10/27/17 17:05 82 13 144/78 100 Simple Mask 6.0 10/27/17 16:55 81 16 136/75 100 Simple Mask 6.0 10/27/17 16:55 98.9 10/27/17 16:50 86 19 136/85 98 Simple Mask 6.0 10/27/17 16:46 210.0 98 17 100 10/27/17 16:45 98.9 98 17 142/86 98 Simple Mask 6.0 98.9 10/27/17 14:11 160/93 10/27/17 12:32 152/90 10/27/17 12:28 98.7 79 20 152/90 100 98.7 10/27/17 08:58 174/97 10/27/17 08:58 83 174/97 10/27/17 08:00 98.1 83 20 174/97 100 98.1 10/27/17 04:00 98.5 77 19 130/72 100 98.5 10/27/17 00:37 98.5 73 18 135/75 95 98.5 10/27/17 00:00 135/75 10/26/17 22:14 137/75 10/26/17 22:00 137/75 10/26/17 20:28 158/98 Intake and Output 10/26/17 10/27/17 19:00 07:00 Intake Total 240 ml Balance 240 ml Intake Oral 240 ml # Voids 1 4 Laboratory Tests 10/27/17 09:30: White Blood Count 11.4H, Red Blood Count 5.89H, Hemoglobin 14.7, Hematocrit 46.7 , Mean Corpuscular Volume 79L, Mean Corpuscular Hemoglobin 24.9L, Mean Corpuscular Hemoglobin Concent 31.4L, Red Cell Distribution Width 12.9, Platelet Count 376, Mean Platelet Volume 8.9, Neutrophils (%) (Auto) 77.4H, Lymphocytes (%) (Auto) 13.5L, Monocytes (%) (Auto) 7.5, Eosinophils (%) (Auto) 0.6, Basophils (%) (Auto) 1.0, Sodium Level 133L, Potassium Level 3.3L, Chloride Level 95L, Carbon Dioxide Level 25, Anion Gap 13, Blood Urea Nitrogen 11, Creatinine 0.9, Estimat Glomerular Filtration Rate > 60, Glucose Level 80, Calcium Level 9.2, Total Bilirubin 0.5, Aspartate Amino Transf (AST/SGOT) 35, Alanine Aminotransferase (ALT/SGPT) 37, Alkaline Phosphatase 49, C-Reactive Protein, Quantitative 1.5H, Total Protein 8.1, Albumin 3.7, Globulin 4.4, Albumin/Globulin Ratio 0.8L, Amylase Level 145H, Lipase 879H Height (Feet): 5 Height (Inches): 5.00 Weight (Pounds): 160 Abdomen: tender Josseline Don MD Oct 27, 2017 20:29
[2017-10-28] VITALS: BP 127/73
[2017-10-28] MEDS: Hydromorphone 0.5mg/0.5ml inj IVP PRN ×6 (01:12→18:22)
[2017-10-28 04:00] VITALS: BP 127/71
[2017-10-28] MEDS: Metoclopramide 10mg/2ml Inj IVP SCH ×3 (04:36→21:32)
[2017-10-28] MEDS: D5 1/2NS w/KCl 20mEq 1,000 ML IV SCH ×2 (04:36→13:38)
[2017-10-28] MEDS: HydrALAZINE 50mg tab ORAL SCH ×3 (04:37→21:31)
[2017-10-28 06:48] LABS: BASOPHILS % (AUTO) 1.2 % (0.0-2.0); EOSINOPHILS % (AUTO) 2.1 % (0.0-3.0); HEMATOCRIT 36.5 % (37.0-47.0); HEMOGLOBIN 12.3 G/DL (12.0-16.0); LYMPHOCYTES % (AUTO) 12.4 % (20.0-45.0); MEAN CORPUSCULAR VOLUME 79 FL (80-99); MONOCYTES % (AUTO) 10.8 % (1.0-10.0); NEUTROPHILS % (AUTO) 73.5 % (45.0-75.0); PLATELET COUNT 318 K/UL (150-450); RED BLOOD COUNT 4.62 M/UL (4.20-5.40); RED CELL DISTRIBUTION WIDTH 12.5 % (11.6-14.8); WHITE BLOOD COUNT 10.4 K/UL (4.8-10.8)
[2017-10-28 07:10] LABS: ANION GAP 8 mmol/L (5-15); BLOOD UREA NITROGEN 8 mg/dL (7-18); CALCIUM 8.1 MG/DL (8.5-10.1); CARBON DIOXIDE 27 MMOL/L (21-32); CHLORIDE 98 MMOL/L (98-107); CREATININE 0.9 MG/DL (0.55-1.30); SODIUM 133 MMOL/L (136-145)
[2017-10-28 08:00] VITALS: BP 152/84
[2017-10-28] MEDS: Enoxaparin 40mg Inj SUBQ SCH (08:11)
[2017-10-28] MEDS: Pantoprazole Inj IVP SCH (08:11)
--- NOTE | 2017-10-28 08:22 | 48 Hour Post Anesthesia Eval ---
Post Anesthesia Evaluation Procedure: Recuduction of incarcerated hernia Date of Evaluation: Oct 28, 2017 Time of Evaluation: 10:10 Blood Pressure Systolic: 127 0: 71 Pulse Rate: 81 Respiratory Rate: 18 Temperature (Fahrenheit): 98.1 O2 Sat by Pulse Oximetry: 97 Airway: patent Nausea: No Vomiting: No Pain Intensity: 2 - Still with NG tube in place. Hydration Status: adequate Cardiopulmonary Status: Stable Mental Status/LOC: patient returned to baseline Follow-up Care/Observations: As per surgery Post-Anesthesia Complications: No anesthetic complication Follow-up care needed: N/A Carlton Parra MD Oct 28, 2017 08:22
[2017-10-28] MEDS: Lisinopril 20mg tab ORAL SCH ×2 (09:39→21:31)
[2017-10-28 12:00] VITALS: BP 131/84
--- NOTE | 2017-10-28 12:25 | Nephrology Progress Note ---
Assessment/Plan Problem List: (1) Acute appendicitis (2) UTI (urinary tract infection) (3) Post-operative nausea and vomiting (4) Hypertension Assessment HTN ooc Post op appendicitis electrolyte abnormalities High Lipase Plan up clonidine dose K supp as needed Dilaudid IV for pain IV protonix hydralazine, lisinopril clonidine for HTN change norvasc to procardia per orders per consultants Subjective ROS Limited/Unobtainable: No Constitutional: Reports: malaise Objective Objective Last 24 Hour Vital Signs Date Time Temp Pulse Resp B/P (MAP) Pulse Ox O2 Delivery O2 Flow Rate FiO2 10/28/17 09:39 98.1 10/28/17 09:39 81 127/71 10/28/17 09:39 127/71 10/28/17 08:22 208.6 81 18 97 10/28/17 08:10 98.4 10/28/17 08:00 98.5 80 24 152/84 98 98.5 10/28/17 05:07 98.4 10/28/17 04:00 98.1 81 18 127/71 97 Room Air 98.1 10/28/17 01:12 98.4 10/28/17 00:00 98.0 83 18 127/73 95 Room Air 98.0 10/27/17 22:00 98.4 10/27/17 20:20 98.0 79 18 129/68 95 Room Air 98.0 10/27/17 18:16 76 140/67 10/27/17 17:45 98.4 76 19 140/67 97 Room Air 98.4 10/27/17 17:30 98.5 71 17 142/81 100 Nasal Cannula 3.0 98.5 10/27/17 17:25 98.5 10/27/17 17:15 75 18 145/77 100 Nasal Cannula 3.0 10/27/17 17:05 82 13 144/78 100 Simple Mask 6.0 10/27/17 16:55 81 16 136/75 100 Simple Mask 6.0 10/27/17 16:55 98.9 10/27/17 16:50 86 19 136/85 98 Simple Mask 6.0 10/27/17 16:46 210.0 98 17 100 10/27/17 16:45 98.9 98 17 142/86 98 Simple Mask 6.0 98.9 10/27/17 14:11 160/93 10/27/17 12:32 152/90 10/27/17 12:28 98.7 79 20 152/90 100 98.7 Intake and Output 10/27/17 10/28/17 19:00 07:00 Intake Total 500 ml 1300 ml Output Total 45 ml Balance 455 ml 1300 ml IV Total 500 ml 1300 ml Estimated Blood Loss 15 ml Other 30 ml # Voids 1 Laboratory Tests 10/28/17 05:50: White Blood Count 10.4, Red Blood Count 4.62, Hemoglobin 12.3, Hematocrit 36.5L , Mean Corpuscular Volume 79L, Mean Corpuscular Hemoglobin 26.6L, Mean Corpuscular Hemoglobin Concent 33.7, Red Cell Distribution Width 12.5, Platelet Count 318, Mean Platelet Volume 9.5, Neutrophils (%) (Auto) 73.5, Lymphocytes (% ) (Auto) 12.4L, Monocytes (%) (Auto) 10.8H, Eosinophils (%) (Auto) 2.1, Basophils (%) (Auto) 1.2, Sodium Level 133L, Potassium Level 3.0L, Chloride Level 98, Carbon Dioxide Level 27, Anion Gap 8, Blood Urea Nitrogen 8, Creatinine 0.9, Estimat Glomerular Filtration Rate > 60, Glucose Level 106, Calcium Level 8.1L, Lipase 678H Height (Feet): 5 Height (Inches): 5.00 Weight (Pounds): 160 EENT: other - NGT Abdomen: distended ANSELMO WATKINS Oct 28, 2017 12:25
--- NOTE | 2017-10-28 12:26 | Infectious Diseases Prog Note ---
Assessment/Plan Assessment/Plan A; Acute appendicitis s/p laparoscopic appendectomy HPN Incarcerated ventral hernia Small bowel obstruction Pancreatitis P: Continue Levaquin, add Flagyl Subjective ROS Limited/Unobtainable: No Respiratory: Reports: no symptoms Gastrointestinal/Abdominal: Reports: other - pain in left lower abdomen, had had ventral hernia surgery yesterday Genitourinary: Reports: no symptoms Allergies: Coded Allergies: No Known Allergies (Unverified , 01/11/15) Objective Vital Signs Last 24 Hour Vital Signs Date Time Temp Pulse Resp B/P (MAP) Pulse Ox O2 Delivery O2 Flow Rate FiO2 10/28/17 09:39 98.1 10/28/17 09:39 81 127/71 10/28/17 09:39 127/71 10/28/17 08:22 208.6 81 18 97 10/28/17 08:10 98.4 10/28/17 08:00 98.5 80 24 152/84 98 98.5 10/28/17 05:07 98.4 10/28/17 04:00 98.1 81 18 127/71 97 Room Air 98.1 10/28/17 01:12 98.4 10/28/17 00:00 98.0 83 18 127/73 95 Room Air 98.0 10/27/17 22:00 98.4 10/27/17 20:20 98.0 79 18 129/68 95 Room Air 98.0 10/27/17 18:16 76 140/67 10/27/17 17:45 98.4 76 19 140/67 97 Room Air 98.4 10/27/17 17:30 98.5 71 17 142/81 100 Nasal Cannula 3.0 98.5 10/27/17 17:25 98.5 10/27/17 17:15 75 18 145/77 100 Nasal Cannula 3.0 10/27/17 17:05 82 13 144/78 100 Simple Mask 6.0 10/27/17 16:55 81 16 136/75 100 Simple Mask 6.0 10/27/17 16:55 98.9 10/27/17 16:50 86 19 136/85 98 Simple Mask 6.0 10/27/17 16:46 210.0 98 17 100 10/27/17 16:45 98.9 98 17 142/86 98 Simple Mask 6.0 98.9 10/27/17 14:11 160/93 10/27/17 12:32 152/90 10/27/17 12:28 98.7 79 20 152/90 100 98.7 Height (Feet): 5 Height (Inches): 5.00 Weight (Pounds): 160 General Appearance: no acute distress HEENT: mucous membranes moist Respiratory/Chest: lungs clear Cardiovascular: normal rate Abdomen: other - tender,NG tube Extremities: no edema Neurologic/Psychiatric: alert, oriented x 3, responsive Laboratory Tests Test 10/28/17 05:50 White Blood Count 10.4 K/UL (4.8-10.8) Red Blood Count 4.62 M/UL (4.20-5.40) Hemoglobin 12.3 G/DL (12.0-16.0) Hematocrit 36.5 % (37.0-47.0) L Mean Corpuscular Volume 79 FL (80-99) L Mean Corpuscular Hemoglobin 26.6 PG (27.0-31.0) L Mean Corpuscular Hemoglobin Concent 33.7 G/DL (32.0-36.0) Red Cell Distribution Width 12.5 % (11.6-14.8) Platelet Count 318 K/UL (150-450) Mean Platelet Volume 9.5 FL (6.5-10.1) Neutrophils (%) (Auto) 73.5 % (45.0-75.0) Lymphocytes (%) (Auto) 12.4 % (20.0-45.0) L Monocytes (%) (Auto) 10.8 % (1.0-10.0) H Eosinophils (%) (Auto) 2.1 % (0.0-3.0) Basophils (%) (Auto) 1.2 % (0.0-2.0) Sodium Level 133 MMOL/L (136-145) L Potassium Level 3.0 MMOL/L (3.5-5.1) L Chloride Level 98 MMOL/L (98-107) Carbon Dioxide Level 27 MMOL/L (21-32) Anion Gap 8 mmol/L (5-15) Blood Urea Nitrogen 8 mg/dL (7-18) Creatinine 0.9 MG/DL (0.55-1.30) Estimat Glomerular Filtration Rate > 60 mL/min (>60) Glucose Level 106 MG/DL (74-106) Calcium Level 8.1 MG/DL (8.5-10.1) L Lipase 678 U/L (73-393) H Current Medications Medications (Trade) Dose Ordered Sig/Janet Route PRN Reason Start Time Stop Time Status Last Admin Dose Admin Acetaminophen (Tylenol) 650 mg Q4H PRN RECTAL fever (temp>100.5F) 10/27/17 16:45 11/26/17 16:44 Clonidine HCl (Catapres Tab) 0.1 mg Q4H PRN ORAL bp over 160 when in no pain 10/26/17 17:00 11/22/17 16:59 Clonidine HCl (Catapres Tab) 0.2 mg EVERY 8 HOURS ORAL 10/26/17 22:00 11/23/17 17:59 10/27/17 14:11 Dextrose/ Electrolytes 1,000 ml @ 100 mls/hr Q10H IV 10/27/17 18:30 11/26/17 18:29 10/28/17 04:36 Enoxaparin Sodium (Lovenox) 40 mg DAILY SUBQ 10/28/17 09:00 11/27/17 08:59 10/28/17 08:11 Hydralazine HCl (Apresoline) 50 mg Q8HR ORAL 10/26/17 22:00 11/22/17 11:59 10/26/17 22:14 Hydromorphone HCl (Dilaudid) 0.5 mg Q3H PRN IVP Moderate Pain (Pain Scale 4-6) 10/27/17 18:15 11/03/17 16:44 10/28/17 08:10 Levofloxacin 100 ml @ 100 mls/hr Q24H IVPB 10/27/17 18:00 11/03/17 17:59 10/27/17 18:16 Lisinopril (Prinivil) 20 mg Q12HR ORAL 10/26/17 21:00 11/22/17 20:59 10/28/17 09:39 Metoclopramide HCl (Reglan) 10 mg EVERY 8 HOURS IVP 10/26/17 22:00 11/20/17 21:59 Metoclopramide HCl (Reglan) 10 mg Q6H PRN IVP Nausea & Vomiting 10/27/17 16:45 11/26/17 16:44 Morphine Sulfate (Morphine Sulfate) 4 mg Q4H PRN IVP Severe Pain (Pain Scale 7-10) 10/27/17 16:45 11/03/17 16:44 Nifedipine (Procardia XL) 60 mg BID ORAL 10/27/17 18:00 11/26/17 17:59 10/28/17 09:39 Ondansetron HCl (Zofran) 4 mg Q6H PRN IVP Nausea & Vomiting 10/27/17 16:45 11/26/17 16:44 Pantoprazole (Protonix) 40 mg DAILY IVP 10/28/17 09:00 11/27/17 08:59 10/28/17 08:11 Bishnu Aceves MD Oct 28, 2017 12:26
--- NOTE | 2017-10-28 14:12 | Cardiology Report ---
APPROVED REPORT EKG Measurement Heart [id number] Sinus rhythm with short [place] Right atrial enlargement Nonspecific T wave abnormality Abnormal ECG
--- NOTE | 2017-10-28 14:13 | GI Progress Note ---
Assessment/Plan Problems: (1) Post-operative nausea and vomiting ICD Codes: R11.2 - Nausea with vomiting, unspecified; Z98.890 - Other specified postprocedural states SNOMED: 4508206 (2) Abdominal pain ICD Codes: R10.9 - Unspecified abdominal pain SNOMED: 27403791 Qualifiers: Qualified Codes: R10.30 - Lower abdominal pain, unspecified (3) Anemia ICD Codes: D64.9 - Anemia, unspecified SNOMED: 318586374 (4) Acute appendicitis ICD Codes: K35.80 - Unspecified acute appendicitis SNOMED: 93325726 Qualifiers: Qualified Codes: K35.80 - Unspecified acute appendicitis Status: stable Status Narrative Discussed with Dr. Min. Assessment/Plan post operative Nausea without vomiting pain 3/10 at surgical sites, minimal drainage elevated lipase >> now normal distended abdomen >> KUB ordered/reviewed >> no abnormality s/p Incarcerated ventral hernia with small-bowel obstruction. diet per surgery, NPO NGT monitor H&H, prn transfusions pain mgmt bowel regime zofran prn, compazine for persistent nausea ppi fu labs, lipase recommend patient for initial colonoscopy next year at age 48 The patient was seen and examined at bedside and all new and available data was reviewed in the patients chart. I agree with the above findings, impression and plan. (Patient seen earlier today. Signature stamp does not reflect patient encounter time.). - Son Min MD Subjective Subjective abdominal pain ambulatory Objective Last 24 Hour Vital Signs Date Time Temp Pulse Resp B/P (MAP) Pulse Ox O2 Delivery O2 Flow Rate FiO2 10/28/17 13:47 99.2 10/28/17 13:38 131/84 10/28/17 13:37 131/84 10/28/17 12:00 99.2 22 131/84 95 Room Air 99.2 10/28/17 09:39 98.1 10/28/17 09:39 81 127/71 10/28/17 09:39 127/71 10/28/17 08:22 208.6 81 18 97 10/28/17 08:10 98.4 10/28/17 08:00 98.5 80 24 152/84 98 98.5 10/28/17 05:07 98.4 10/28/17 04:00 98.1 81 18 127/71 97 Room Air 98.1 10/28/17 01:12 98.4 10/28/17 00:00 98.0 83 18 127/73 95 Room Air 98.0 10/27/17 22:00 98.4 10/27/17 20:20 98.0 79 18 129/68 95 Room Air 98.0 10/27/17 18:16 76 140/67 10/27/17 17:45 98.4 76 19 140/67 97 Room Air 98.4 10/27/17 17:30 98.5 71 17 142/81 100 Nasal Cannula 3.0 98.5 10/27/17 17:25 98.5 10/27/17 17:15 75 18 145/77 100 Nasal Cannula 3.0 10/27/17 17:05 82 13 144/78 100 Simple Mask 6.0 10/27/17 16:55 81 16 136/75 100 Simple Mask 6.0 10/27/17 16:55 98.9 10/27/17 16:50 86 19 136/85 98 Simple Mask 6.0 10/27/17 16:46 210.0 98 17 100 10/27/17 16:45 98.9 98 17 142/86 98 Simple Mask 6.0 98.9 Intake and Output 10/27/17 10/28/17 19:00 07:00 Intake Total 500 ml 1300 ml Output Total 45 ml Balance 455 ml 1300 ml IV Total 500 ml 1300 ml Estimated Blood Loss 15 ml Other 30 ml # Voids 1 Laboratory Tests Test 10/28/17 05:50 White Blood Count 10.4 K/UL (4.8-10.8) Red Blood Count 4.62 M/UL (4.20-5.40) Hemoglobin 12.3 G/DL (12.0-16.0) Hematocrit 36.5 % (37.0-47.0) L Mean Corpuscular Volume 79 FL (80-99) L Mean Corpuscular Hemoglobin 26.6 PG (27.0-31.0) L Mean Corpuscular Hemoglobin Concent 33.7 G/DL (32.0-36.0) Red Cell Distribution Width 12.5 % (11.6-14.8) Platelet Count 318 K/UL (150-450) Mean Platelet Volume 9.5 FL (6.5-10.1) Neutrophils (%) (Auto) 73.5 % (45.0-75.0) Lymphocytes (%) (Auto) 12.4 % (20.0-45.0) L Monocytes (%) (Auto) 10.8 % (1.0-10.0) H Eosinophils (%) (Auto) 2.1 % (0.0-3.0) Basophils (%) (Auto) 1.2 % (0.0-2.0) Sodium Level 133 MMOL/L (136-145) L Potassium Level 3.0 MMOL/L (3.5-5.1) L Chloride Level 98 MMOL/L (98-107) Carbon Dioxide Level 27 MMOL/L (21-32) Anion Gap 8 mmol/L (5-15) Blood Urea Nitrogen 8 mg/dL (7-18) Creatinine 0.9 MG/DL (0.55-1.30) Estimat Glomerular Filtration Rate > 60 mL/min (>60) Glucose Level 106 MG/DL (74-106) Calcium Level 8.1 MG/DL (8.5-10.1) L Lipase 678 U/L (73-393) H Height (Feet): 5 Height (Inches): 5.00 Weight (Pounds): 160 General Appearance: WD/WN, no apparent distress, alert Cardiovascular: normal rate Respiratory/Chest: normal breath sounds, no respiratory distress Abdominal Exam: normal bowel sounds, non tender, soft, other - NGT Extremities: normal range of motion, non-tender Simon Chaves NP Oct 28, 2017 14:13
--- NOTE | 2017-10-28 14:41 | General Surgery Progress Note ---
General Surgery-Progress Note Subjective Procedure Performed release of incarceration & repair of ventral hernia Symptoms: improved Objective Last 24 Hour Vital Signs Date Time Temp Pulse Resp B/P (MAP) Pulse Ox O2 Delivery O2 Flow Rate FiO2 10/28/17 13:47 99.2 10/28/17 13:38 131/84 10/28/17 13:37 131/84 10/28/17 12:00 99.2 22 131/84 95 Room Air 99.2 10/28/17 09:39 98.1 10/28/17 09:39 81 127/71 10/28/17 09:39 127/71 10/28/17 08:22 208.6 81 18 97 10/28/17 08:10 98.4 10/28/17 08:00 98.5 80 24 152/84 98 98.5 10/28/17 05:07 98.4 10/28/17 04:00 98.1 81 18 127/71 97 Room Air 98.1 10/28/17 01:12 98.4 10/28/17 00:00 98.0 83 18 127/73 95 Room Air 98.0 10/27/17 22:00 98.4 10/27/17 20:20 98.0 79 18 129/68 95 Room Air 98.0 10/27/17 18:16 76 140/67 10/27/17 17:45 98.4 76 19 140/67 97 Room Air 98.4 10/27/17 17:30 98.5 71 17 142/81 100 Nasal Cannula 3.0 98.5 10/27/17 17:25 98.5 10/27/17 17:15 75 18 145/77 100 Nasal Cannula 3.0 10/27/17 17:05 82 13 144/78 100 Simple Mask 6.0 10/27/17 16:55 81 16 136/75 100 Simple Mask 6.0 10/27/17 16:55 98.9 10/27/17 16:50 86 19 136/85 98 Simple Mask 6.0 10/27/17 16:46 210.0 98 17 100 10/27/17 16:45 98.9 98 17 142/86 98 Simple Mask 6.0 98.9 I&O Intake and Output 10/27/17 10/28/17 19:00 07:00 Intake Total 500 ml 1300 ml Output Total 45 ml Balance 455 ml 1300 ml IV Total 500 ml 1300 ml Estimated Blood Loss 15 ml Other 30 ml # Voids 1 Dressing: dry Drains: none Respiratory: clear Abdomen: soft, distended, non-tender, absent bowel sounds Extremities: no edema, no tenderness Laboratory Tests Test 10/28/17 05:50 White Blood Count 10.4 K/UL (4.8-10.8) Red Blood Count 4.62 M/UL (4.20-5.40) Hemoglobin 12.3 G/DL (12.0-16.0) Hematocrit 36.5 % (37.0-47.0) L Mean Corpuscular Volume 79 FL (80-99) L Mean Corpuscular Hemoglobin 26.6 PG (27.0-31.0) L Mean Corpuscular Hemoglobin Concent 33.7 G/DL (32.0-36.0) Red Cell Distribution Width 12.5 % (11.6-14.8) Platelet Count 318 K/UL (150-450) Mean Platelet Volume 9.5 FL (6.5-10.1) Neutrophils (%) (Auto) 73.5 % (45.0-75.0) Lymphocytes (%) (Auto) 12.4 % (20.0-45.0) L Monocytes (%) (Auto) 10.8 % (1.0-10.0) H Eosinophils (%) (Auto) 2.1 % (0.0-3.0) Basophils (%) (Auto) 1.2 % (0.0-2.0) Sodium Level 133 MMOL/L (136-145) L Potassium Level 3.0 MMOL/L (3.5-5.1) L Chloride Level 98 MMOL/L (98-107) Carbon Dioxide Level 27 MMOL/L (21-32) Anion Gap 8 mmol/L (5-15) Blood Urea Nitrogen 8 mg/dL (7-18) Creatinine 0.9 MG/DL (0.55-1.30) Estimat Glomerular Filtration Rate > 60 mL/min (>60) Glucose Level 106 MG/DL (74-106) Calcium Level 8.1 MG/DL (8.5-10.1) L Lipase 678 U/L (73-393) H Assessment Post-op Diagnosis incarcerated ventral hernia Plan Additional Comments continue current treatment Rajni Leone MD Oct 28, 2017 14:41
[2017-10-28] MEDS: D5 1/2NS w/KCl 40meq 1000ml 1,000 ML IV SCH (15:30)
[2017-10-28 16:00] VITALS: BP 141/83
[2017-10-28 20:00] VITALS: BP 143/77
--- NOTE | 2017-10-28 22:02 | General Progress Note ---
Assessment/Plan Problem List: (1) Abdominal pain ICD Codes: R10.9 - Unspecified abdominal pain SNOMED: 99088539 Qualifiers: Qualified Codes: R10.30 - Lower abdominal pain, unspecified (2) Acute appendicitis ICD Codes: K35.80 - Unspecified acute appendicitis SNOMED: 05261108 Qualifiers: Qualified Codes: K35.80 - Unspecified acute appendicitis (3) Post-operative nausea and vomiting ICD Codes: R11.2 - Nausea with vomiting, unspecified; Z98.890 - Other specified postprocedural states SNOMED: 1649268 Status: progressing Assessment/Plan s/p appendectomy s/p vomit diet per surgeon persistent hypertension has ng tube to decompress has ileus npo bp is improving Subjective ROS Limited/Unobtainable: Yes Gastrointestinal/Abdominal: Reports: abdominal pain Allergies: Coded Allergies: No Known Allergies (Unverified , 01/11/15) Objective Last 24 Hour Vital Signs Date Time Temp Pulse Resp B/P (MAP) Pulse Ox O2 Delivery O2 Flow Rate FiO2 10/28/17 21:32 143/77 10/28/17 21:31 143/77 10/28/17 21:31 143/77 10/28/17 20:00 98.6 94 18 143/77 96 Room Air 98.6 10/28/17 18:23 94 141/83 10/28/17 18:22 98.7 10/28/17 16:00 98.7 94 20 141/83 96 98.7 10/28/17 14:17 99.2 10/28/17 13:47 99.2 10/28/17 13:38 131/84 10/28/17 13:37 131/84 10/28/17 12:00 99.2 22 131/84 95 Room Air 99.2 10/28/17 09:39 81 127/71 10/28/17 09:39 127/71 10/28/17 08:22 208.6 81 18 97 10/28/17 08:10 98.4 10/28/17 08:00 98.5 80 24 152/84 98 98.5 10/28/17 05:07 98.4 10/28/17 04:00 98.1 81 18 127/71 97 Room Air 98.1 10/28/17 01:12 98.4 10/28/17 00:00 98.0 83 18 127/73 95 Room Air 98.0 10/27/17 22:00 98.4 Intake and Output 10/27/17 10/28/17 19:00 07:00 Intake Total 500 ml 1300 ml Output Total 45 ml Balance 455 ml 1300 ml IV Total 500 ml 1300 ml Estimated Blood Loss 15 ml Other 30 ml # Voids 1 Laboratory Tests 10/28/17 05:50: White Blood Count 10.4, Red Blood Count 4.62, Hemoglobin 12.3, Hematocrit 36.5L , Mean Corpuscular Volume 79L, Mean Corpuscular Hemoglobin 26.6L, Mean Corpuscular Hemoglobin Concent 33.7, Red Cell Distribution Width 12.5, Platelet Count 318, Mean Platelet Volume 9.5, Neutrophils (%) (Auto) 73.5, Lymphocytes (% ) (Auto) 12.4L, Monocytes (%) (Auto) 10.8H, Eosinophils (%) (Auto) 2.1, Basophils (%) (Auto) 1.2, Sodium Level 133L, Potassium Level 3.0L, Chloride Level 98, Carbon Dioxide Level 27, Anion Gap 8, Blood Urea Nitrogen 8, Creatinine 0.9, Estimat Glomerular Filtration Rate > 60, Glucose Level 106, Calcium Level 8.1L, Lipase 678H Height (Feet): 5 Height (Inches): 5.00 Weight (Pounds): 160 Neck: supple Cardiovascular: normal rate Respiratory/Chest: lungs clear Abdomen: soft Josseline Don MD Oct 28, 2017 22:01
[2017-10-29] VITALS (7 sets, daily range): BP systolic 114–142; BP diastolic 58–87
[2017-10-29] MEDS: D5 1/2NS w/KCl 40meq 1000ml 1,000 ML IV SCH ×2 (01:30→04:29)
[2017-10-29] MEDS: Metoclopramide 10mg/2ml Inj IVP SCH ×3 (05:50→21:57)
[2017-10-29] MEDS: HydrALAZINE 50mg tab ORAL SCH ×3 (05:50→22:00)
--- NOTE | 2017-10-29 06:57 | General Progress Note ---
Assessment/Plan Problem List: (1) Abdominal pain ICD Codes: R10.9 - Unspecified abdominal pain SNOMED: 71937576 Qualifiers: Qualified Codes: R10.30 - Lower abdominal pain, unspecified (2) Acute appendicitis ICD Codes: K35.80 - Unspecified acute appendicitis SNOMED: 65773978 Qualifiers: Qualified Codes: K35.80 - Unspecified acute appendicitis (3) Post-operative nausea and vomiting ICD Codes: R11.2 - Nausea with vomiting, unspecified; Z98.890 - Other specified postprocedural states SNOMED: 6983970 Status: progressing Assessment/Plan s/p appendectomy s/p vomit ng tube for decompression afebrile bp is improving Subjective Gastrointestinal/Abdominal: Reports: abdomen distended, abdominal pain, vomiting Allergies: Coded Allergies: No Known Allergies (Unverified , 01/11/15) Objective Last 24 Hour Vital Signs Date Time Temp Pulse Resp B/P (MAP) Pulse Ox O2 Delivery O2 Flow Rate FiO2 10/29/17 05:50 138/79 10/29/17 05:50 138/79 10/29/17 04:00 99.3 95 19 138/79 98 Room Air 99.3 10/29/17 00:00 98.9 96 18 130/85 96 Room Air 98.9 10/28/17 21:32 143/77 10/28/17 21:31 143/77 10/28/17 21:31 143/77 10/28/17 20:00 98.6 94 18 143/77 96 Room Air 98.6 10/28/17 18:23 94 141/83 10/28/17 18:22 98.7 10/28/17 16:00 98.7 94 20 141/83 96 98.7 10/28/17 14:17 99.2 10/28/17 13:47 99.2 10/28/17 13:38 131/84 10/28/17 13:37 131/84 10/28/17 12:00 99.2 22 131/84 95 Room Air 99.2 10/28/17 09:39 81 127/71 10/28/17 09:39 127/71 10/28/17 08:22 208.6 81 18 97 10/28/17 08:10 98.4 10/28/17 08:00 98.5 80 24 152/84 98 98.5 Intake and Output 10/28/17 10/29/17 19:00 07:00 Intake Total 100 ml 1000 ml Output Total 200 ml Balance 100 ml 800 ml IV Total 100 ml 1000 ml Other 0 ml Other 200 ml # Voids 3 3 Laboratory Tests 10/29/17 05:20: White Blood Count [Pending], Red Blood Count [Pending], Hemoglobin [Pending], Hematocrit [Pending], Mean Corpuscular Volume [Pending], Mean Corpuscular Hemoglobin [Pending], Mean Corpuscular Hemoglobin Concent [Pending], Red Cell Distribution Width [Pending], Platelet Count [Pending], Mean Platelet Volume [ Pending], Neutrophils (%) (Auto) [Pending], Lymphocytes (%) (Auto) [Pending], Monocytes (%) (Auto) [Pending], Eosinophils (%) (Auto) [Pending], Basophils (%) (Auto) [Pending], Sodium Level [Pending], Potassium Level [Pending], Chloride Level [Pending], Carbon Dioxide Level [Pending], Blood Urea Nitrogen [Pending], Creatinine [Pending], Estimat Glomerular Filtration Rate [Pending], Glucose Level [Pending], Calcium Level [Pending], Lipase [Pending] Height (Feet): 5 Height (Inches): 5.00 Weight (Pounds): 160 Josseline Don MD Oct 29, 2017 06:57
[2017-10-29 07:12] LABS: ANION GAP 8 mmol/L (5-15); BLOOD UREA NITROGEN 8 mg/dL (7-18); CALCIUM 8.6 MG/DL (8.5-10.1); CARBON DIOXIDE 28 MMOL/L (21-32); CHLORIDE 100 MMOL/L (98-107); CREATININE 0.9 MG/DL (0.55-1.30); POTASSIUM 3.2 MMOL/L (3.5-5.1); SODIUM 136 MMOL/L (136-145)
[2017-10-29 07:38] LABS: BASOPHILS % (AUTO) 1.3 % (0.0-2.0); EOSINOPHILS % (AUTO) 1.9 % (0.0-3.0); HEMATOCRIT 36.4 % (37.0-47.0); HEMOGLOBIN 11.7 G/DL (12.0-16.0); LYMPHOCYTES % (AUTO) 16.2 % (20.0-45.0); MEAN CORPUSCULAR VOLUME 79 FL (80-99); MONOCYTES % (AUTO) 11.9 % (1.0-10.0); NEUTROPHILS % (AUTO) 68.7 % (45.0-75.0); PLATELET COUNT 321 K/UL (150-450); RED BLOOD COUNT 4.58 M/UL (4.20-5.40); RED CELL DISTRIBUTION WIDTH 12.5 % (11.6-14.8); WHITE BLOOD COUNT 9.4 K/UL (4.8-10.8)
[2017-10-29] MEDS: Lisinopril 20mg tab ORAL SCH ×2 (09:00→21:00)
[2017-10-29] MEDS: Pantoprazole Inj IVP SCH (09:13)
[2017-10-29] MEDS: Enoxaparin 40mg Inj SUBQ SCH (09:18)
--- NOTE | 2017-10-29 11:08 | GI Progress Note ---
Assessment/Plan Problems: (1) Post-operative nausea and vomiting ICD Codes: R11.2 - Nausea with vomiting, unspecified; Z98.890 - Other specified postprocedural states SNOMED: 2423120 (2) Abdominal pain ICD Codes: R10.9 - Unspecified abdominal pain SNOMED: 45358358 Qualifiers: Qualified Codes: R10.30 - Lower abdominal pain, unspecified (3) Anemia ICD Codes: D64.9 - Anemia, unspecified SNOMED: 736932325 (4) Acute appendicitis ICD Codes: K35.80 - Unspecified acute appendicitis SNOMED: 85430225 Qualifiers: Qualified Codes: K35.80 - Unspecified acute appendicitis Status: unchanged Status Narrative Discussed with Dr. Min. Assessment/Plan post operative Nausea without vomiting pain 3/10 at surgical sites, minimal drainage rising lipase distended abdomen >> property custodian image ordered s/p Incarcerated ventral hernia with small-bowel obstruction. diet per surgery, CLD trial today >> consider TPN if patient cannot tolerate NGT removed by patient monitor H&H, prn transfusions pain mgmt bowel regime zofran prn, compazine for persistent nausea ppi fu labs, lipase recommend patient for initial colonoscopy next year at age 48 The patient was seen and examined at bedside and all new and available data was reviewed in the patients chart. I agree with the above findings, impression and plan. (Patient seen earlier today. Signature stamp does not reflect patient encounter time.). - Son Min MD Subjective Subjective abdominal pain not passing gas ambulatory Objective Last 24 Hour Vital Signs Date Time Temp Pulse Resp B/P (MAP) Pulse Ox O2 Delivery O2 Flow Rate FiO2 10/29/17 08:00 99.3 86 20 114/64 98 Room Air 99.3 10/29/17 05:50 138/79 10/29/17 05:50 138/79 10/29/17 04:00 99.3 95 19 138/79 98 Room Air 99.3 10/29/17 00:00 98.9 96 18 130/85 96 Room Air 98.9 10/28/17 21:32 143/77 10/28/17 21:31 143/77 10/28/17 21:31 143/77 10/28/17 20:00 98.6 94 18 143/77 96 Room Air 98.6 10/28/17 18:23 94 141/83 10/28/17 18:22 98.7 10/28/17 16:00 98.7 94 20 141/83 96 98.7 10/28/17 14:17 99.2 10/28/17 13:47 99.2 10/28/17 13:38 131/84 10/28/17 13:37 131/84 10/28/17 12:00 99.2 22 131/84 95 Room Air 99.2 Intake and Output 10/28/17 10/29/17 19:00 07:00 Intake Total 100 ml 1000 ml Output Total 200 ml Balance 100 ml 800 ml IV Total 100 ml 1000 ml Other 0 ml Other 200 ml # Voids 3 3 Laboratory Tests Test 10/29/17 05:20 White Blood Count 9.4 K/UL (4.8-10.8) Red Blood Count 4.58 M/UL (4.20-5.40) Hemoglobin 11.7 G/DL (12.0-16.0) L Hematocrit 36.4 % (37.0-47.0) L Mean Corpuscular Volume 79 FL (80-99) L Mean Corpuscular Hemoglobin 25.5 PG (27.0-31.0) L Mean Corpuscular Hemoglobin Concent 32.1 G/DL (32.0-36.0) Red Cell Distribution Width 12.5 % (11.6-14.8) Platelet Count 321 K/UL (150-450) Mean Platelet Volume 9.3 FL (6.5-10.1) Neutrophils (%) (Auto) 68.7 % (45.0-75.0) Lymphocytes (%) (Auto) 16.2 % (20.0-45.0) L Monocytes (%) (Auto) 11.9 % (1.0-10.0) H Eosinophils (%) (Auto) 1.9 % (0.0-3.0) Basophils (%) (Auto) 1.3 % (0.0-2.0) Sodium Level 136 MMOL/L (136-145) Potassium Level 3.2 MMOL/L (3.5-5.1) L Chloride Level 100 MMOL/L (98-107) Carbon Dioxide Level 28 MMOL/L (21-32) Anion Gap 8 mmol/L (5-15) Blood Urea Nitrogen 8 mg/dL (7-18) Creatinine 0.9 MG/DL (0.55-1.30) Estimat Glomerular Filtration Rate > 60 mL/min (>60) Glucose Level 87 MG/DL (74-106) Calcium Level 8.6 MG/DL (8.5-10.1) Lipase 1472 U/L (73-393) H Height (Feet): 5 Height (Inches): 5.00 Weight (Pounds): 160 General Appearance: WD/WN, no apparent distress, alert Cardiovascular: normal rate Respiratory/Chest: normal breath sounds, no respiratory distress Abdominal Exam: normal bowel sounds, non tender, soft Extremities: normal range of motion, non-tender Simon Chaves NP Oct 29, 2017 11:08
--- NOTE | 2017-10-29 11:16 | Diagnostic Imaging Report ---
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 Mildly to moderately dilated mid abdominal small bowel loops are again noted. No unusual masses or calcifications Impression: Mild to moderate dilatation of mid abdominal small bowel loops. Given recent surgery, most likely on the basis of postoperative ileus. Recurrent/residual small bowel obstruction also a possibility. Correlate with clinical findings, recommend follow-up radiographs as indicated
--- NOTE | 2017-10-29 11:49 | General Surgery Progress Note ---
General Surgery-Progress Note Subjective Procedure Performed release of incarceration & repair of ventral hernia Symptoms: improved Objective Last 24 Hour Vital Signs Date Time Temp Pulse Resp B/P (MAP) Pulse Ox O2 Delivery O2 Flow Rate FiO2 10/29/17 08:00 99.3 86 20 114/64 98 Room Air 99.3 10/29/17 05:50 138/79 10/29/17 05:50 138/79 10/29/17 04:00 99.3 95 19 138/79 98 Room Air 99.3 10/29/17 00:00 98.9 96 18 130/85 96 Room Air 98.9 10/28/17 21:32 143/77 10/28/17 21:31 143/77 10/28/17 21:31 143/77 10/28/17 20:00 98.6 94 18 143/77 96 Room Air 98.6 10/28/17 18:23 94 141/83 10/28/17 18:22 98.7 10/28/17 16:00 98.7 94 20 141/83 96 98.7 10/28/17 14:17 99.2 10/28/17 13:47 99.2 10/28/17 13:38 131/84 10/28/17 13:37 131/84 10/28/17 12:00 99.2 22 131/84 95 Room Air 99.2 I&O Intake and Output 10/28/17 10/29/17 19:00 07:00 Intake Total 100 ml 1000 ml Output Total 200 ml Balance 100 ml 800 ml IV Total 100 ml 1000 ml Other 0 ml Other 200 ml # Voids 3 3 Dressing: dry Drains: none Respiratory: clear Abdomen: soft, non-tender, present bowel sounds Extremities: no tenderness Laboratory Tests Test 10/29/17 05:20 White Blood Count 9.4 K/UL (4.8-10.8) Red Blood Count 4.58 M/UL (4.20-5.40) Hemoglobin 11.7 G/DL (12.0-16.0) L Hematocrit 36.4 % (37.0-47.0) L Mean Corpuscular Volume 79 FL (80-99) L Mean Corpuscular Hemoglobin 25.5 PG (27.0-31.0) L Mean Corpuscular Hemoglobin Concent 32.1 G/DL (32.0-36.0) Red Cell Distribution Width 12.5 % (11.6-14.8) Platelet Count 321 K/UL (150-450) Mean Platelet Volume 9.3 FL (6.5-10.1) Neutrophils (%) (Auto) 68.7 % (45.0-75.0) Lymphocytes (%) (Auto) 16.2 % (20.0-45.0) L Monocytes (%) (Auto) 11.9 % (1.0-10.0) H Eosinophils (%) (Auto) 1.9 % (0.0-3.0) Basophils (%) (Auto) 1.3 % (0.0-2.0) Sodium Level 136 MMOL/L (136-145) Potassium Level 3.2 MMOL/L (3.5-5.1) L Chloride Level 100 MMOL/L (98-107) Carbon Dioxide Level 28 MMOL/L (21-32) Anion Gap 8 mmol/L (5-15) Blood Urea Nitrogen 8 mg/dL (7-18) Creatinine 0.9 MG/DL (0.55-1.30) Estimat Glomerular Filtration Rate > 60 mL/min (>60) Glucose Level 87 MG/DL (74-106) Calcium Level 8.6 MG/DL (8.5-10.1) Lipase 1472 U/L (73-393) H Assessment Post-op Diagnosis incarcerated ventral hernia Plan Additional Comments clear liquid diet Rajni Leone MD Oct 29, 2017 11:49
[2017-10-29] MEDS ORDERED: D5 1/2NS w/KCl 20mEq 1,000 ML IV SCH (12:00)
--- NOTE | 2017-10-29 12:16 | Nephrology Progress Note ---
Assessment/Plan Problem List: (1) Acute appendicitis (2) UTI (urinary tract infection) (3) Post-operative nausea and vomiting (4) Hypertension Assessment HTN ooc Post op appendicitis electrolyte abnormalities High Lipase Plan adjust bp meds K supp as needed hydralazine, lisinopril clonidine for HTN change norvasc to procardia per orders per consultants Subjective ROS Limited/Unobtainable: No Objective Objective Last 24 Hour Vital Signs Date Time Temp Pulse Resp B/P (MAP) Pulse Ox O2 Delivery O2 Flow Rate FiO2 10/29/17 08:00 99.3 86 20 114/64 98 Room Air 99.3 10/29/17 05:50 138/79 10/29/17 05:50 138/79 10/29/17 04:00 99.3 95 19 138/79 98 Room Air 99.3 10/29/17 00:00 98.9 96 18 130/85 96 Room Air 98.9 10/28/17 21:32 143/77 10/28/17 21:31 143/77 10/28/17 21:31 143/77 10/28/17 20:00 98.6 94 18 143/77 96 Room Air 98.6 10/28/17 18:23 94 141/83 10/28/17 18:22 98.7 10/28/17 16:00 98.7 94 20 141/83 96 98.7 10/28/17 14:17 99.2 10/28/17 13:47 99.2 10/28/17 13:38 131/84 10/28/17 13:37 131/84 Intake and Output 10/28/17 10/29/17 19:00 07:00 Intake Total 100 ml 1000 ml Output Total 200 ml Balance 100 ml 800 ml IV Total 100 ml 1000 ml Other 0 ml Other 200 ml # Voids 3 3 Current Medications Medications (Trade) Dose Ordered Sig/Janet Route PRN Reason Start Time Stop Time Status Last Admin Dose Admin Acetaminophen (Tylenol) 650 mg Q4H PRN RECTAL fever (temp>100.5F) 10/27/17 16:45 11/26/17 16:44 Bisacodyl (Dulcolax) 10 mg ONCE ONCE RECTAL 10/29/17 12:15 10/29/17 12:16 Clonidine HCl (Catapres Tab) 0.1 mg Q4H PRN ORAL bp over 160 when in no pain 10/26/17 17:00 11/22/17 16:59 Clonidine HCl (Catapres Tab) 0.2 mg EVERY 8 HOURS ORAL 10/26/17 22:00 11/23/17 17:59 10/29/17 05:50 Dextrose/ Electrolytes 1,000 ml @ 100 mls/hr Q10H IV 10/29/17 12:00 11/28/17 11:59 Enoxaparin Sodium (Lovenox) 40 mg DAILY SUBQ 10/28/17 09:00 11/27/17 08:59 10/29/17 09:18 Hydralazine HCl (Apresoline) 50 mg Q8HR ORAL 10/26/17 22:00 11/22/17 11:59 10/29/17 05:50 Hydromorphone HCl (Dilaudid) 0.5 mg Q3H PRN IVP Moderate Pain (Pain Scale 4-6) 10/27/17 18:15 11/03/17 16:44 10/28/17 18:22 Levofloxacin 100 ml @ 100 mls/hr Q24H IVPB 10/27/17 18:00 11/03/17 17:59 10/28/17 18:22 Lisinopril (Prinivil) 20 mg Q12HR ORAL 10/26/17 21:00 11/22/17 20:59 10/28/17 21:31 Metoclopramide HCl (Reglan) 10 mg EVERY 8 HOURS IVP 10/26/17 22:00 11/20/17 21:59 10/28/17 21:32 Metoclopramide HCl (Reglan) 10 mg Q6H PRN IVP Nausea & Vomiting 10/27/17 16:45 11/26/17 16:44 Metronidazole 100 ml @ 100 mls/hr Q8H IVPB 10/28/17 14:00 11/04/17 13:59 10/28/17 21:33 Morphine Sulfate (Morphine Sulfate) 4 mg Q4H PRN IVP Severe Pain (Pain Scale 7-10) 10/27/17 16:45 11/03/17 16:44 Nifedipine (Procardia XL) 60 mg BID ORAL 10/27/17 18:00 11/26/17 17:59 10/28/17 18:23 Pantoprazole (Protonix) 40 mg DAILY IVP 10/28/17 09:00 11/27/17 08:59 10/29/17 09:13 Potassium Chloride (K-Dur) 40 meq ONCE ONCE ORAL 10/29/17 12:30 10/29/17 12:31 Senna/Docusate Sodium (Maritza-Colace) 1 tab TWICE A DAY ORAL 10/29/17 18:00 11/28/17 17:59 Laboratory Tests 10/29/17 05:20: White Blood Count 9.4, Red Blood Count 4.58, Hemoglobin 11.7L, Hematocrit 36.4L , Mean Corpuscular Volume 79L, Mean Corpuscular Hemoglobin 25.5L, Mean Corpuscular Hemoglobin Concent 32.1, Red Cell Distribution Width 12.5, Platelet Count 321, Mean Platelet Volume 9.3, Neutrophils (%) (Auto) 68.7, Lymphocytes (% ) (Auto) 16.2L, Monocytes (%) (Auto) 11.9H, Eosinophils (%) (Auto) 1.9, Basophils (%) (Auto) 1.3, Sodium Level 136, Potassium Level 3.2L, Chloride Level 100, Carbon Dioxide Level 28, Anion Gap 8, Blood Urea Nitrogen 8, Creatinine 0.9, Estimat Glomerular Filtration Rate > 60, Glucose Level 87, Calcium Level 8.6, Lipase 1472H Height (Feet): 5 Height (Inches): 5.00 Weight (Pounds): 160 General Appearance: no apparent distress Abdomen: soft ANSELMO WATKINS 13, 2018 12:16
--- NOTE | 2017-10-29 13:20 | Infectious Diseases Prog Note ---
Assessment/Plan Assessment/Plan A; Acute appendicitis s/p laparoscopic appendectomy HPN Incarcerated ventral hernia Small bowel obstruction Pancreatitis P: Continue Levaquin & Flagyl Started on clear liquid diet Subjective ROS Limited/Unobtainable: No Constitutional: Reports: no symptoms Respiratory: Reports: no symptoms Gastrointestinal/Abdominal: Reports: no symptoms Genitourinary: Reports: no symptoms Allergies: Coded Allergies: No Known Allergies (Unverified , 01/11/15) Objective Vital Signs Last 24 Hour Vital Signs Date Time Temp Pulse Resp B/P (MAP) Pulse Ox O2 Delivery O2 Flow Rate FiO2 10/29/17 12:00 98.3 85 20 131/72 98 Room Air 98.3 10/29/17 08:00 99.3 86 20 114/64 98 Room Air 99.3 10/29/17 05:50 138/79 10/29/17 05:50 138/79 10/29/17 04:00 99.3 95 19 138/79 98 Room Air 99.3 10/29/17 00:00 98.9 96 18 130/85 96 Room Air 98.9 10/28/17 21:32 143/77 10/28/17 21:31 143/77 10/28/17 21:31 143/77 10/28/17 20:00 98.6 94 18 143/77 96 Room Air 98.6 10/28/17 18:23 94 141/83 10/28/17 18:22 98.7 10/28/17 16:00 98.7 94 20 141/83 96 98.7 10/28/17 14:17 99.2 10/28/17 13:47 99.2 10/28/17 13:38 131/84 10/28/17 13:37 131/84 Height (Feet): 5 Height (Inches): 5.00 Weight (Pounds): 160 General Appearance: no acute distress HEENT: mucous membranes moist Respiratory/Chest: lungs clear Cardiovascular: normal rate Abdomen: other - soft, mildly tender Extremities: no edema Neurologic/Psychiatric: alert, oriented x 3, responsive Laboratory Tests Test 10/29/17 05:20 White Blood Count 9.4 K/UL (4.8-10.8) Red Blood Count 4.58 M/UL (4.20-5.40) Hemoglobin 11.7 G/DL (12.0-16.0) L Hematocrit 36.4 % (37.0-47.0) L Mean Corpuscular Volume 79 FL (80-99) L Mean Corpuscular Hemoglobin 25.5 PG (27.0-31.0) L Mean Corpuscular Hemoglobin Concent 32.1 G/DL (32.0-36.0) Red Cell Distribution Width 12.5 % (11.6-14.8) Platelet Count 321 K/UL (150-450) Mean Platelet Volume 9.3 FL (6.5-10.1) Neutrophils (%) (Auto) 68.7 % (45.0-75.0) Lymphocytes (%) (Auto) 16.2 % (20.0-45.0) L Monocytes (%) (Auto) 11.9 % (1.0-10.0) H Eosinophils (%) (Auto) 1.9 % (0.0-3.0) Basophils (%) (Auto) 1.3 % (0.0-2.0) Sodium Level 136 MMOL/L (136-145) Potassium Level 3.2 MMOL/L (3.5-5.1) L Chloride Level 100 MMOL/L (98-107) Carbon Dioxide Level 28 MMOL/L (21-32) Anion Gap 8 mmol/L (5-15) Blood Urea Nitrogen 8 mg/dL (7-18) Creatinine 0.9 MG/DL (0.55-1.30) Estimat Glomerular Filtration Rate > 60 mL/min (>60) Glucose Level 87 MG/DL (74-106) Calcium Level 8.6 MG/DL (8.5-10.1) Lipase 1472 U/L (73-393) H Current Medications Medications (Trade) Dose Ordered Sig/Janet Route PRN Reason Start Time Stop Time Status Last Admin Dose Admin Acetaminophen (Tylenol) 650 mg Q4H PRN RECTAL fever (temp>100.5F) 10/27/17 16:45 11/26/17 16:44 Clonidine HCl (Catapres Tab) 0.1 mg EVERY 8 HOURS ORAL 10/29/17 14:00 11/23/17 17:59 Clonidine HCl (Catapres Tab) 0.1 mg Q4H PRN ORAL bp over 160 when in no pain 10/26/17 17:00 11/22/17 16:59 Enoxaparin Sodium (Lovenox) 40 mg DAILY SUBQ 10/28/17 09:00 11/27/17 08:59 10/29/17 09:18 Hydralazine HCl (Apresoline) 50 mg Q8HR ORAL 10/26/17 22:00 11/22/17 11:59 10/29/17 05:50 Hydromorphone HCl (Dilaudid) 0.5 mg Q3H PRN IVP Moderate Pain (Pain Scale 4-6) 10/27/17 18:15 11/03/17 16:44 10/28/17 18:22 Levofloxacin 100 ml @ 100 mls/hr Q24H IVPB 10/27/17 18:00 11/03/17 17:59 10/28/17 18:22 Lisinopril (Prinivil) 20 mg Q12HR ORAL 10/26/17 21:00 11/22/17 20:59 10/28/17 21:31 Metoclopramide HCl (Reglan) 10 mg EVERY 8 HOURS IVP 10/26/17 22:00 11/20/17 21:59 10/28/17 21:32 Metoclopramide HCl (Reglan) 10 mg Q6H PRN IVP Nausea & Vomiting 10/27/17 16:45 11/26/17 16:44 Metronidazole 100 ml @ 100 mls/hr Q8H IVPB 10/28/17 14:00 11/04/17 13:59 10/28/17 21:33 Morphine Sulfate (Morphine Sulfate) 4 mg Q4H PRN IVP Severe Pain (Pain Scale 7-10) 10/27/17 16:45 11/03/17 16:44 Nifedipine (Procardia XL) 60 mg Q12HR ORAL 10/29/17 21:00 11/28/17 20:59 Pantoprazole (Protonix) 40 mg DAILY IVP 10/28/17 09:00 11/27/17 08:59 10/29/17 09:13 Potassium Chloride (K-Dur) 40 meq TWICE A DAY ORAL 10/29/17 18:00 11/28/17 17:59 Senna/Docusate Sodium (Maritza-Colace) 1 tab TWICE A DAY ORAL 10/29/17 18:00 11/28/17 17:59 Bishnu Aceves MD Oct 29, 2017 13:20
[2017-10-29] MEDS: Docusate Sod/Senna tab ORAL SCH (18:00)
--- NOTE | 2017-10-29 23:59 | Cardiology Progress Note ---
Assessment/Plan Assessment/Plan 1. Accelerated hypertension, better controlled, continue Enalaprilat. 2. Acute appendicitis, status post appendectomy. 3. Intractable nausea and vomiting, due to small bowel obstruction per CT scan of abdomen, s/p repair today. 4. Hypokalemia, K replacement. Subjective Subjective No cardiac events. Denies CP or SOB. Objective Last 24 Hour Vital Signs Date Time Temp Pulse Resp B/P (MAP) Pulse Ox O2 Delivery O2 Flow Rate FiO2 10/29/17 20:00 99.4 87 18 134/58 96 Room Air 99.4 10/29/17 20:00 99.4 87 18 134/58 96 Room Air 99.4 10/29/17 17:41 85 20 131/71 97 Room Air 10/29/17 16:00 98.7 85 20 142/87 97 98.7 10/29/17 14:36 131/72 10/29/17 14:34 131/72 10/29/17 12:00 98.3 85 20 131/72 98 Room Air 98.3 10/29/17 08:00 99.3 86 20 114/64 98 Room Air 99.3 10/29/17 05:50 138/79 10/29/17 05:50 138/79 10/29/17 04:00 99.3 95 19 138/79 98 Room Air 99.3 10/29/17 00:00 98.9 96 18 130/85 96 Room Air 98.9 Intake and Output 10/28/17 10/29/17 19:00 07:00 Intake Total 100 ml 1000 ml Output Total 200 ml Balance 100 ml 800 ml IV Total 100 ml 1000 ml Other 0 ml Other 200 ml # Voids 3 3 Laboratory Tests Test 10/29/17 05:20 White Blood Count 9.4 K/UL (4.8-10.8) Red Blood Count 4.58 M/UL (4.20-5.40) Hemoglobin 11.7 G/DL (12.0-16.0) L Hematocrit 36.4 % (37.0-47.0) L Mean Corpuscular Volume 79 FL (80-99) L Mean Corpuscular Hemoglobin 25.5 PG (27.0-31.0) L Mean Corpuscular Hemoglobin Concent 32.1 G/DL (32.0-36.0) Red Cell Distribution Width 12.5 % (11.6-14.8) Platelet Count 321 K/UL (150-450) Mean Platelet Volume 9.3 FL (6.5-10.1) Neutrophils (%) (Auto) 68.7 % (45.0-75.0) Lymphocytes (%) (Auto) 16.2 % (20.0-45.0) L Monocytes (%) (Auto) 11.9 % (1.0-10.0) H Eosinophils (%) (Auto) 1.9 % (0.0-3.0) Basophils (%) (Auto) 1.3 % (0.0-2.0) Sodium Level 136 MMOL/L (136-145) Potassium Level 3.2 MMOL/L (3.5-5.1) L Chloride Level 100 MMOL/L (98-107) Carbon Dioxide Level 28 MMOL/L (21-32) Anion Gap 8 mmol/L (5-15) Blood Urea Nitrogen 8 mg/dL (7-18) Creatinine 0.9 MG/DL (0.55-1.30) Estimat Glomerular Filtration Rate > 60 mL/min (>60) Glucose Level 87 MG/DL (74-106) Calcium Level 8.6 MG/DL (8.5-10.1) Lipase 1472 U/L (73-393) H Objective GENERAL: The patient is a very unfortunate 47-year-old female, in no apparent respiratory distress. She is nauseous. HEENT: Atraumatic and normocephalic. Pupils are equal, round, and reactive to light and accommodation. Extraocular muscles intact. NECK: JVP less than 5 cm. No carotid bruits. Carotid upstrokes 2+ bilaterally. CARDIOVASCULAR: Normal S1, S2. Regular rate and rhythm. No murmurs, gallops, or rubs. LUNGS: Clear to auscultation bilaterally. ABDOMEN: Soft, nontender, and nondistended. No hepatosplenomegaly. Positive bowel sounds. EXTREMITIES: No evidence of edema, clubbing, or cyanosis. Alfa Wilhelm MD Oct 29, 2017 23:59
[2017-10-30] VITALS: BP 135/71
[2017-10-30 04:00] VITALS: BP 143/79
[2017-10-30] MEDS: HydrALAZINE 50mg tab ORAL SCH (05:42)
[2017-10-30] MEDS: Metoclopramide 10mg/2ml Inj IVP SCH ×2 (05:42→14:00)
[2017-10-30 06:50] LABS: BASOPHILS % (AUTO) 1.6 % (0.0-2.0); EOSINOPHILS % (AUTO) 3.3 % (0.0-3.0); HEMATOCRIT 36.9 % (37.0-47.0); HEMOGLOBIN 11.9 G/DL (12.0-16.0); LYMPHOCYTES % (AUTO) 19.5 % (20.0-45.0); MEAN CORPUSCULAR VOLUME 79 FL (80-99); MONOCYTES % (AUTO) 8.1 % (1.0-10.0); NEUTROPHILS % (AUTO) 67.6 % (45.0-75.0); PLATELET COUNT 340 K/UL (150-450); RED BLOOD COUNT 4.64 M/UL (4.20-5.40); RED CELL DISTRIBUTION WIDTH 12.5 % (11.6-14.8); WHITE BLOOD COUNT 8.4 K/UL (4.8-10.8)
[2017-10-30 07:03] LABS: ANION GAP 11 mmol/L (5-15); BLOOD UREA NITROGEN 9 mg/dL (7-18); CALCIUM 9.2 MG/DL (8.5-10.1); CARBON DIOXIDE 26 MMOL/L (21-32); CHLORIDE 98 MMOL/L (98-107); SODIUM 135 MMOL/L (136-145)
[2017-10-30 08:00] VITALS: BP 114/57
[2017-10-30] MEDS: Docusate Sod/Senna tab ORAL SCH (09:00)
[2017-10-30] MEDS: Lisinopril 20mg tab ORAL SCH (09:00)
[2017-10-30] MEDS: Pantoprazole Inj IVP SCH (09:12)
[2017-10-30] MEDS: Enoxaparin 40mg Inj SUBQ SCH (09:15)
--- NOTE | 2017-10-30 10:06 | GI Progress Note ---
Assessment/Plan Problems: (1) Post-operative nausea and vomiting ICD Codes: R11.2 - Nausea with vomiting, unspecified; Z98.890 - Other specified postprocedural states SNOMED: 3937057 (2) Abdominal pain ICD Codes: R10.9 - Unspecified abdominal pain SNOMED: 45561970 Qualifiers: Qualified Codes: R10.30 - Lower abdominal pain, unspecified (3) Anemia ICD Codes: D64.9 - Anemia, unspecified SNOMED: 449487759 (4) Acute appendicitis ICD Codes: K35.80 - Unspecified acute appendicitis SNOMED: 44400459 Qualifiers: Qualified Codes: K35.80 - Unspecified acute appendicitis Status: doing well, stable Status Narrative Discussed with Dr. Min. Assessment/Plan post operative Nausea without vomiting resolved denies abdominal pain surgical sites, minimal drainage elevated lipase KUB reviewed >> most likely ileus s/p Incarcerated ventral hernia with small-bowel obstruction. diet per surgery, CLD NGT removed by patient, tolerated CLD monitor H&H, prn transfusions pain mgmt bowel regime zofran prn, compazine for persistent nausea ppi fu labs, lipase recommend patient for initial colonoscopy next year at age 48 The patient was seen and examined at bedside and all new and available data was reviewed in the patients chart. I agree with the above findings, impression and plan. (Patient seen earlier today. Signature stamp does not reflect patient encounter time.). - Son Min MD Subjective Subjective denies abdominal pain had multiple BMs passing flatus Objective Last 24 Hour Vital Signs Date Time Temp Pulse Resp B/P (MAP) Pulse Ox O2 Delivery O2 Flow Rate FiO2 10/30/17 09:00 79 114/57 10/30/17 09:00 114/57 10/30/17 08:00 98.7 79 20 114/57 98 Room Air 98.7 10/30/17 05:42 143/79 10/30/17 05:42 143/79 10/30/17 04:00 98.0 78 18 143/79 97 Room Air 98.0 10/30/17 00:00 99.1 86 17 135/71 95 Room Air 99.1 10/29/17 20:00 99.4 87 18 134/58 96 Room Air 99.4 10/29/17 20:00 99.4 87 18 134/58 96 Room Air 99.4 10/29/17 17:41 85 20 131/71 97 Room Air 10/29/17 16:00 98.7 85 20 142/87 97 98.7 10/29/17 14:36 131/72 10/29/17 14:34 131/72 10/29/17 12:00 98.3 85 20 131/72 98 Room Air 98.3 Intake and Output 10/29/17 10/30/17 19:00 07:00 Intake Total 300 ml Balance 300 ml Intake Oral 300 ml # Voids 4 2 # Bowel Movements 1 Laboratory Tests Test 10/30/17 05:35 White Blood Count 8.4 K/UL (4.8-10.8) Red Blood Count 4.64 M/UL (4.20-5.40) Hemoglobin 11.9 G/DL (12.0-16.0) L Hematocrit 36.9 % (37.0-47.0) L Mean Corpuscular Volume 79 FL (80-99) L Mean Corpuscular Hemoglobin 25.5 PG (27.0-31.0) L Mean Corpuscular Hemoglobin Concent 32.2 G/DL (32.0-36.0) Red Cell Distribution Width 12.5 % (11.6-14.8) Platelet Count 340 K/UL (150-450) Mean Platelet Volume 9.2 FL (6.5-10.1) Neutrophils (%) (Auto) 67.6 % (45.0-75.0) Lymphocytes (%) (Auto) 19.5 % (20.0-45.0) L Monocytes (%) (Auto) 8.1 % (1.0-10.0) Eosinophils (%) (Auto) 3.3 % (0.0-3.0) H Basophils (%) (Auto) 1.6 % (0.0-2.0) Sodium Level 135 MMOL/L (136-145) L Potassium Level 3.0 MMOL/L (3.5-5.1) L Chloride Level 98 MMOL/L (98-107) Carbon Dioxide Level 26 MMOL/L (21-32) Anion Gap 11 mmol/L (5-15) Blood Urea Nitrogen 9 mg/dL (7-18) Creatinine 1.0 MG/DL (0.55-1.30) Estimat Glomerular Filtration Rate > 60 mL/min (>60) Glucose Level 86 MG/DL (74-106) Calcium Level 9.2 MG/DL (8.5-10.1) Lipase 1430 U/L (73-393) H Height (Feet): 5 Height (Inches): 5.00 Weight (Pounds): 160 General Appearance: WD/WN, no apparent distress, alert Cardiovascular: normal rate Respiratory/Chest: normal breath sounds, no respiratory distress Abdominal Exam: normal bowel sounds, non tender, soft Extremities: normal range of motion, non-tender Simon Chaves NP Oct 30, 2017 10:06
--- NOTE | 2017-10-30 11:48 | Infectious Diseases Prog Note ---
Assessment/Plan Assessment/Plan A; Acute appendicitis s/p laparoscopic appendectomy HPN Incarcerated ventral hernia Small bowel obstruction Pancreatitis P: Continue Levaquin & Flagyl tolerating clear liquid diet Subjective ROS Limited/Unobtainable: No Constitutional: Reports: no symptoms Respiratory: Reports: dry cough Cardiovascular: Reports: no symptoms Gastrointestinal/Abdominal: Reports: other - soarness in surgical side Genitourinary: Reports: no symptoms Allergies: Coded Allergies: No Known Allergies (Unverified , 01/11/15) Objective Vital Signs Last 24 Hour Vital Signs Date Time Temp Pulse Resp B/P (MAP) Pulse Ox O2 Delivery O2 Flow Rate FiO2 10/30/17 09:00 79 114/57 10/30/17 09:00 114/57 10/30/17 08:00 98.7 79 20 114/57 98 Room Air 98.7 10/30/17 05:42 143/79 10/30/17 05:42 143/79 10/30/17 04:00 98.0 78 18 143/79 97 Room Air 98.0 10/30/17 00:00 99.1 86 17 135/71 95 Room Air 99.1 10/29/17 20:00 99.4 87 18 134/58 96 Room Air 99.4 10/29/17 20:00 99.4 87 18 134/58 96 Room Air 99.4 10/29/17 17:41 85 20 131/71 97 Room Air 10/29/17 16:00 98.7 85 20 142/87 97 98.7 10/29/17 14:36 131/72 10/29/17 14:34 131/72 10/29/17 12:00 98.3 85 20 131/72 98 Room Air 98.3 Height (Feet): 5 Height (Inches): 5.00 Weight (Pounds): 160 General Appearance: no acute distress HEENT: mucous membranes moist Respiratory/Chest: lungs clear Cardiovascular: normal rate Abdomen: soft, non tender Neurologic/Psychiatric: alert, oriented x 3, responsive Laboratory Tests Test 10/30/17 05:35 White Blood Count 8.4 K/UL (4.8-10.8) Red Blood Count 4.64 M/UL (4.20-5.40) Hemoglobin 11.9 G/DL (12.0-16.0) L Hematocrit 36.9 % (37.0-47.0) L Mean Corpuscular Volume 79 FL (80-99) L Mean Corpuscular Hemoglobin 25.5 PG (27.0-31.0) L Mean Corpuscular Hemoglobin Concent 32.2 G/DL (32.0-36.0) Red Cell Distribution Width 12.5 % (11.6-14.8) Platelet Count 340 K/UL (150-450) Mean Platelet Volume 9.2 FL (6.5-10.1) Neutrophils (%) (Auto) 67.6 % (45.0-75.0) Lymphocytes (%) (Auto) 19.5 % (20.0-45.0) L Monocytes (%) (Auto) 8.1 % (1.0-10.0) Eosinophils (%) (Auto) 3.3 % (0.0-3.0) H Basophils (%) (Auto) 1.6 % (0.0-2.0) Sodium Level 135 MMOL/L (136-145) L Potassium Level 3.0 MMOL/L (3.5-5.1) L Chloride Level 98 MMOL/L (98-107) Carbon Dioxide Level 26 MMOL/L (21-32) Anion Gap 11 mmol/L (5-15) Blood Urea Nitrogen 9 mg/dL (7-18) Creatinine 1.0 MG/DL (0.55-1.30) Estimat Glomerular Filtration Rate > 60 mL/min (>60) Glucose Level 86 MG/DL (74-106) Calcium Level 9.2 MG/DL (8.5-10.1) Lipase 1430 U/L (73-393) H Current Medications Medications (Trade) Dose Ordered Sig/Janet Route PRN Reason Start Time Stop Time Status Last Admin Dose Admin Acetaminophen (Tylenol) 650 mg Q4H PRN RECTAL fever (temp>100.5F) 10/27/17 16:45 11/26/17 16:44 Al Hydroxide/Mg Hydroxide (Mylanta) 30 ml Q6H PRN ORAL Abdominal cramps 10/29/17 19:45 11/28/17 19:44 10/29/17 20:23 Clonidine HCl (Catapres Tab) 0.1 mg EVERY 8 HOURS ORAL 10/29/17 14:00 7/8/18 17:59 10/30/17 05:42 Clonidine HCl (Catapres Tab) 0.1 mg Q4H PRN ORAL bp over 160 when in no pain 10/26/17 17:00 11/22/17 16:59 Enoxaparin Sodium (Lovenox) 40 mg DAILY SUBQ 10/28/17 09:00 11/27/17 08:59 10/30/17 09:15 Hydralazine HCl (Apresoline) 50 mg Q8HR ORAL 10/26/17 22:00 11/22/17 11:59 10/30/17 05:42 Hydromorphone HCl (Dilaudid) 0.5 mg Q3H PRN IVP Moderate Pain (Pain Scale 4-6) 10/27/17 18:15 11/03/17 16:44 10/28/17 18:22 Levofloxacin 100 ml @ 100 mls/hr Q24H IVPB 10/27/17 18:00 11/03/17 17:59 10/28/17 18:22 Lisinopril (Prinivil) 20 mg Q12HR ORAL 10/26/17 21:00 11/22/17 20:59 10/28/17 21:31 Metoclopramide HCl (Reglan) 10 mg EVERY 8 HOURS IVP 10/26/17 22:00 11/20/17 21:59 10/28/17 21:32 Metoclopramide HCl (Reglan) 10 mg Q6H PRN IVP Nausea & Vomiting 10/27/17 16:45 11/26/17 16:44 Metronidazole 100 ml @ 100 mls/hr Q8H IVPB 10/28/17 14:00 11/04/17 13:59 10/29/17 14:34 Morphine Sulfate (Morphine Sulfate) 4 mg Q4H PRN IVP Severe Pain (Pain Scale 7-10) 10/27/17 16:45 11/03/17 16:44 Nifedipine (Procardia XL) 60 mg Q12HR ORAL 10/29/17 21:00 11/28/17 20:59 Pantoprazole (Protonix) 40 mg DAILY IVP 10/28/17 09:00 11/27/17 08:59 10/30/17 09:12 Potassium Chloride (K-Dur) 40 meq TWICE A DAY ORAL 6/13/18 18:00 11/28/17 17:59 10/30/17 09:12 Senna/Docusate Sodium (Maritza-Colace) 1 tab TWICE A DAY ORAL 10/29/17 18:00 11/28/17 17:59 Bishnu Aceves MD Oct 30, 2017 11:48
[2017-10-30 12:00] VITALS: BP 120/64
--- NOTE | 2017-10-30 13:17 | Nephrology Progress Note ---
Assessment/Plan Problem List: (1) Acute appendicitis (2) UTI (urinary tract infection) (3) Post-operative nausea and vomiting (4) Hypertension Assessment HTN ooc Post op appendicitis electrolyte abnormalities High Lipase Plan on clear liquids- Lipase elevated- adjust bp meds K supp as needed hydralazine, lisinopril clonidine for HTN change norvasc to procardia per orders per consultants Subjective ROS Limited/Unobtainable: No Constitutional: Reports: malaise Objective Objective Last 24 Hour Vital Signs Date Time Temp Pulse Resp B/P (MAP) Pulse Ox O2 Delivery O2 Flow Rate FiO2 10/30/17 12:00 98.1 83 20 120/64 98 Room Air 98.1 10/30/17 09:00 79 114/57 10/30/17 09:00 114/57 10/30/17 08:00 98.7 79 20 114/57 98 Room Air 98.7 10/30/17 05:42 143/79 10/30/17 05:42 143/79 10/30/17 04:00 98.0 78 18 143/79 97 Room Air 98.0 10/30/17 00:00 99.1 86 17 135/71 95 Room Air 99.1 10/29/17 20:00 99.4 87 18 134/58 96 Room Air 99.4 10/29/17 20:00 99.4 87 18 134/58 96 Room Air 99.4 10/29/17 17:41 85 20 131/71 97 Room Air 10/29/17 16:00 98.7 85 20 142/87 97 98.7 10/29/17 14:36 131/72 10/29/17 14:34 131/72 Intake and Output 10/29/17 10/30/17 19:00 07:00 Intake Total 300 ml Balance 300 ml Intake Oral 300 ml # Voids 4 2 # Bowel Movements 1 Laboratory Tests 10/30/17 05:35: White Blood Count 8.4, Red Blood Count 4.64, Hemoglobin 11.9L, Hematocrit 36.9L , Mean Corpuscular Volume 79L, Mean Corpuscular Hemoglobin 25.5L, Mean Corpuscular Hemoglobin Concent 32.2, Red Cell Distribution Width 12.5, Platelet Count 340, Mean Platelet Volume 9.2, Neutrophils (%) (Auto) 67.6, Lymphocytes (% ) (Auto) 19.5L, Monocytes (%) (Auto) 8.1, Eosinophils (%) (Auto) 3.3H, Basophils (%) (Auto) 1.6, Sodium Level 135L, Potassium Level 3.0L, Chloride Level 98, Carbon Dioxide Level 26, Anion Gap 11, Blood Urea Nitrogen 9, Creatinine 1.0, Estimat Glomerular Filtration Rate > 60, Glucose Level 86, Calcium Level 9.2, Lipase 1430H Height (Feet): 5 Height (Inches): 5.00 Weight (Pounds): 160 General Appearance: no apparent distress ANSELMO WATKINS Oct 30, 2017 13:17
[2017-10-30] MEDS ORDERED: HydrALAZINE 25mg tab ORAL SCH (14:00)
--- NOTE | 2017-10-30 14:07 | General Progress Note ---
Assessment/Plan Problem List: (1) Abdominal pain ICD Codes: R10.9 - Unspecified abdominal pain SNOMED: 76168516 Qualifiers: Qualified Codes: R10.30 - Lower abdominal pain, unspecified (2) Acute appendicitis ICD Codes: K35.80 - Unspecified acute appendicitis SNOMED: 68452850 Qualifiers: Qualified Codes: K35.80 - Unspecified acute appendicitis (3) Post-operative nausea and vomiting ICD Codes: R11.2 - Nausea with vomiting, unspecified; Z98.890 - Other specified postprocedural states SNOMED: 4643241 (4) Hypertension ICD Codes: I10 - Essential (primary) hypertension SNOMED: 77346475 Status: stable, progressing Assessment/Plan adv diet pain cbc bmp am control dc plan home if clear Subjective Constitutional: Reports: weakness Allergies: Coded Allergies: No Known Allergies (Unverified , 01/11/15) All Systems: reviewed and negative except above Subjective pos bm eating ok Objective Last 24 Hour Vital Signs Date Time Temp Pulse Resp B/P (MAP) Pulse Ox O2 Delivery O2 Flow Rate FiO2 10/30/17 14:00 120/64 10/30/17 14:00 120/64 10/30/17 12:00 98.1 83 20 120/64 98 Room Air 98.1 10/30/17 09:00 79 114/57 10/30/17 09:00 114/57 10/30/17 08:00 98.7 79 20 114/57 98 Room Air 98.7 10/30/17 05:42 143/79 10/30/17 05:42 143/79 10/30/17 04:00 98.0 78 18 143/79 97 Room Air 98.0 10/30/17 00:00 99.1 86 17 135/71 95 Room Air 99.1 10/29/17 20:00 99.4 87 18 134/58 96 Room Air 99.4 10/29/17 20:00 99.4 87 18 134/58 96 Room Air 99.4 10/29/17 17:41 85 20 131/71 97 Room Air 10/29/17 16:00 98.7 85 20 142/87 97 98.7 10/29/17 14:36 131/72 10/29/17 14:34 131/72 Intake and Output 10/29/17 10/30/17 19:00 07:00 Intake Total 300 ml Balance 300 ml Intake Oral 300 ml # Voids 4 2 # Bowel Movements 1 Laboratory Tests 10/30/17 05:35: White Blood Count 8.4, Red Blood Count 4.64, Hemoglobin 11.9L, Hematocrit 36.9L , Mean Corpuscular Volume 79L, Mean Corpuscular Hemoglobin 25.5L, Mean Corpuscular Hemoglobin Concent 32.2, Red Cell Distribution Width 12.5, Platelet Count 340, Mean Platelet Volume 9.2, Neutrophils (%) (Auto) 67.6, Lymphocytes (% ) (Auto) 19.5L, Monocytes (%) (Auto) 8.1, Eosinophils (%) (Auto) 3.3H, Basophils (%) (Auto) 1.6, Sodium Level 135L, Potassium Level 3.0L, Chloride Level 98, Carbon Dioxide Level 26, Anion Gap 11, Blood Urea Nitrogen 9, Creatinine 1.0, Estimat Glomerular Filtration Rate > 60, Glucose Level 86, Calcium Level 9.2, Lipase 1430H Height (Feet): 5 Height (Inches): 5.00 Weight (Pounds): 160 General Appearance: alert EENT: normal ENT inspection Neck: normal alignment Cardiovascular: normal peripheral pulses, normal rate, regular rhythm Respiratory/Chest: chest wall non-tender, lungs clear, normal breath sounds Abdomen: normal bowel sounds, non tender, soft Extremities: normal inspection Edema: no edema noted Arm (L), no edema noted Arm (R), no edema noted Leg (L), no edema noted Leg (R), no edema noted Pedal (L), no edema noted Pedal (R), no edema noted Generalized Neurologic: responsive, motor weakness Skin: normal pigmentation, warm/dry Scott Barrera DO Oct 30, 2017 14:07
--- NOTE | 2017-10-30 15:11 | General Surgery Progress Note ---
General Surgery-Progress Note Subjective Procedure Performed release of incarceration & repair of ventral hernia Symptoms: improved, BM Objective Last 24 Hour Vital Signs Date Time Temp Pulse Resp B/P (MAP) Pulse Ox O2 Delivery O2 Flow Rate FiO2 10/30/17 14:00 120/64 10/30/17 14:00 120/64 10/30/17 12:00 98.1 83 20 120/64 98 Room Air 98.1 10/30/17 09:00 79 114/57 10/30/17 09:00 114/57 10/30/17 08:00 98.7 79 20 114/57 98 Room Air 98.7 10/30/17 05:42 143/79 10/30/17 05:42 143/79 10/30/17 04:00 98.0 78 18 143/79 97 Room Air 98.0 10/30/17 00:00 99.1 86 17 135/71 95 Room Air 99.1 10/29/17 20:00 99.4 87 18 134/58 96 Room Air 99.4 10/29/17 20:00 99.4 87 18 134/58 96 Room Air 99.4 10/29/17 17:41 85 20 131/71 97 Room Air 10/29/17 16:00 98.7 85 20 142/87 97 98.7 I&O Intake and Output 10/29/17 10/30/17 19:00 07:00 Intake Total 300 ml Balance 300 ml Intake Oral 300 ml # Voids 4 2 # Bowel Movements 1 Dressing: dry Wound: clean, intact Drains: none Respiratory: clear Abdomen: soft, non-tender, present bowel sounds Extremities: no edema, no tenderness Laboratory Tests Test 10/30/17 05:35 White Blood Count 8.4 K/UL (4.8-10.8) Red Blood Count 4.64 M/UL (4.20-5.40) Hemoglobin 11.9 G/DL (12.0-16.0) L Hematocrit 36.9 % (37.0-47.0) L Mean Corpuscular Volume 79 FL (80-99) L Mean Corpuscular Hemoglobin 25.5 PG (27.0-31.0) L Mean Corpuscular Hemoglobin Concent 32.2 G/DL (32.0-36.0) Red Cell Distribution Width 12.5 % (11.6-14.8) Platelet Count 340 K/UL (150-450) Mean Platelet Volume 9.2 FL (6.5-10.1) Neutrophils (%) (Auto) 67.6 % (45.0-75.0) Lymphocytes (%) (Auto) 19.5 % (20.0-45.0) L Monocytes (%) (Auto) 8.1 % (1.0-10.0) Eosinophils (%) (Auto) 3.3 % (0.0-3.0) H Basophils (%) (Auto) 1.6 % (0.0-2.0) Sodium Level 135 MMOL/L (136-145) L Potassium Level 3.0 MMOL/L (3.5-5.1) L Chloride Level 98 MMOL/L (98-107) Carbon Dioxide Level 26 MMOL/L (21-32) Anion Gap 11 mmol/L (5-15) Blood Urea Nitrogen 9 mg/dL (7-18) Creatinine 1.0 MG/DL (0.55-1.30) Estimat Glomerular Filtration Rate > 60 mL/min (>60) Glucose Level 86 MG/DL (74-106) Calcium Level 9.2 MG/DL (8.5-10.1) Lipase 1430 U/L (73-393) H Assessment Post-op Diagnosis incarcerated ventral hernia Plan Additional Comments discharge to home Rajni Leone MD Oct 30, 2017 15:11
--- NOTE | 2017-10-30 15:14 | Discharge Instructions ---
Discharge Instructions Discharge Instructions Follow up with: my office one week and with her primary for BP Diet: 4 GM sodium (no salt added) Resume Normal Activity?: Yes Activity: as tolerated For Surgical Patients May shower: Yes For Congestive Heart Failure Reminder Report to your physician any weight gain of 5 pounds or more in one week. Rajni Leone MD Oct 30, 2017 15:14
[2017-10-30 16:00] VITALS: BP 126/68
[2017-10-30] MEDS ORDERED: Tubing IV Secondary IV ONE (16:34)
--- NOTE | 2017-10-30 23:40 | Cardiology Progress Note ---
Assessment/Plan Assessment/Plan 1. Accelerated hypertension, better controlled, continue oral meds. 2. Acute appendicitis, status post appendectomy. 3. Intractable nausea and vomiting, due to small bowel obstruction per CT scan of abdomen, s/p repair today. 4. Hypokalemia, K replacement. Subjective Subjective Denies chest pain or SOB. Objective Last 24 Hour Vital Signs Date Time Temp Pulse Resp B/P (MAP) Pulse Ox O2 Delivery O2 Flow Rate FiO2 10/30/17 16:00 98.0 86 20 126/68 98 Room Air 98.0 10/30/17 14:00 120/64 10/30/17 14:00 120/64 10/30/17 12:00 98.1 83 20 120/64 98 Room Air 98.1 10/30/17 09:00 79 114/57 10/30/17 09:00 114/57 10/30/17 08:00 98.7 79 20 114/57 98 Room Air 98.7 10/30/17 05:42 143/79 10/30/17 05:42 143/79 10/30/17 04:00 98.0 78 18 143/79 97 Room Air 98.0 10/30/17 00:00 99.1 86 17 135/71 95 Room Air 99.1 Intake and Output 10/29/17 10/30/17 19:00 07:00 Intake Total 300 ml Balance 300 ml Intake Oral 300 ml # Voids 4 2 # Bowel Movements 1 Laboratory Tests Test 10/30/17 05:35 White Blood Count 8.4 K/UL (4.8-10.8) Red Blood Count 4.64 M/UL (4.20-5.40) Hemoglobin 11.9 G/DL (12.0-16.0) L Hematocrit 36.9 % (37.0-47.0) L Mean Corpuscular Volume 79 FL (80-99) L Mean Corpuscular Hemoglobin 25.5 PG (27.0-31.0) L Mean Corpuscular Hemoglobin Concent 32.2 G/DL (32.0-36.0) Red Cell Distribution Width 12.5 % (11.6-14.8) Platelet Count 340 K/UL (150-450) Mean Platelet Volume 9.2 FL (6.5-10.1) Neutrophils (%) (Auto) 67.6 % (45.0-75.0) Lymphocytes (%) (Auto) 19.5 % (20.0-45.0) L Monocytes (%) (Auto) 8.1 % (1.0-10.0) Eosinophils (%) (Auto) 3.3 % (0.0-3.0) H Basophils (%) (Auto) 1.6 % (0.0-2.0) Sodium Level 135 MMOL/L (136-145) L Potassium Level 3.0 MMOL/L (3.5-5.1) L Chloride Level 98 MMOL/L (98-107) Carbon Dioxide Level 26 MMOL/L (21-32) Anion Gap 11 mmol/L (5-15) Blood Urea Nitrogen 9 mg/dL (7-18) Creatinine 1.0 MG/DL (0.55-1.30) Estimat Glomerular Filtration Rate > 60 mL/min (>60) Glucose Level 86 MG/DL (74-106) Calcium Level 9.2 MG/DL (8.5-10.1) Lipase 1430 U/L (73-393) H Objective GENERAL: The patient is a very unfortunate 47-year-old female, in no apparent respiratory distress. She is nauseous. HEENT: Atraumatic and normocephalic. Pupils are equal, round, and reactive to light and accommodation. Extraocular muscles intact. NECK: JVP less than 5 cm. No carotid bruits. Carotid upstrokes 2+ bilaterally. CARDIOVASCULAR: Normal S1, S2. Regular rate and rhythm. No murmurs, gallops, or rubs. LUNGS: Clear to auscultation bilaterally. ABDOMEN: Soft, nontender, and nondistended. No hepatosplenomegaly. Positive bowel sounds. EXTREMITIES: No evidence of edema, clubbing, or cyanosis. Alfa Wilhelm MD Oct 30, 2017 23:40
--- NOTE | 2017-10-31 11:01 | Discharge Summary ---
Discharge Summary Discharge Summary _ DATE OF ADMISSION: 10/21/2017 DATE OF DISCHARGE: 10/30/2017 REASON FOR ADMISSION: 47 years old female came to emergency room for evaluation due to abdominal pain. She reported not having bowel movement for few days. She denied blood in the stool with previous bowel movement .She denied fevers. She reported abdominal discomfort, nausea, chills for 2 days. Upon evaluation in emergency department, vital signs were stable, patient was afebrile. Laboratory workup revealed leukocytosis WBC -12.7. test was negative. Urinalysis was positive for pyuria and few bacteria. Electrolytes were stable. Lipase 414. CT of the abdomen revealed acute uncomplicated appendicitis. Patient was taken to operating room straight from the emergency department. Patient subsequently admitted with diagnosis of acute appendicitis, abdominal pain , possible urinary tract infection CONSULTANTS: help desk assistant Dr. Wilhelm ID specialist Yola Arreola GI specialist Dr. Min twister tender Dr. Arellano Surgeon [facility] COURSE: Patient undergone laparoscopic appendectomy on 10/21/2017. Surgeon closely followed. Pathology revealed acute appendicitis with periappendicitis. Patient started on empiric antibiotics. Pain management provided. Patient started on clear liquid diet . Subsequently developed nausea ,vomiting and abdominal distention. KUB revealed no acute abnormalities. Leukocytosis continued. CT of the abdomen and pelvis revealed high grade small bowel obstruction presumptively due to the left lower quadrant lateral abdominal wall hernia. Patient subsequently undergone on the same day ventral herniorrhaphy with release of incarcerated hernia. Patient initially was on bowel rest with NG tube with canoe monitoring of output and IV hydration. As bowel function returned, NG tube discontinued. Patient started on clear liquids diet . Pain management was addressed, and pain was controlled. Bowel regimen instituted , antiemetics provided as needed. Patient was on PPI. Nausea and vomiting resolved. Lipase was trended, still elevated. but patient asymptomatic. Incentive spirometry provided while in the bed and encouraged to use. Patient eventually was out of bed and ambulated freely. Blood pressure was initially uncontrolled . Cardiology and nephrology closely followed . Blood pressure stabilized with multiply antihypertensive medication regimen and controlled prior to discharge. Renal parameters and electrolytes were closely monitored. Electrolytes were corrected as needed. Nephrotoxins were avoided. DVT and GI prophylaxis provided. Patient clinically improved , diet advanced as tolerated . Patient was cleared for discharge home. FINAL DIAGNOSES: Acute appendicitis Status post laparoscopic appendectomy Incarcerated ventral hernia due to small bowel obstruction Pancreatitis Status post on the ventral herniorrhaphy and release of incarcerated hernia Anemia Hypertensive urgency Electrolyte abnormalities DISCHARGE MEDICATIONS: See Medication Reconciliation list. DISCHARGE INSTRUCTIONS: Patient was discharged home. Follow up with a surgeon as advised. Recommended colonoscopy at 48 years of age. I have been assigned to dictate discharge summary for this account. I was not involved in the patient's management. Cassie Arango NP Oct 31, 2017 11:01
--- NOTE | 2017-10-31 14:45 | Discharge Summary ---
DATE OF ADMISSION: 10/21/2017 DATE OF DISCHARGE: 10/30/2017 NOTE: POOR AUDIO ADMITTING DIAGNOSIS: Acute appendicitis. DISCHARGE DIAGNOSES: 1. Acute appendicitis. 2. Incarcerated ventral hernia with small bowel obstruction. OPERATION: 1. Laparoscopy appendectomy. 2. Ventral herniorrhaphy with the release of the incarceration and bowel obstruction. COMPLICATIONS: None. INDICATION: This is a 47-year-old female, who presented to the emergency room on 10/21/2017 complaining of two days history of abdominal pain and this pain was associated with nausea and vomiting. Physical examination showed tenderness and rebound tenderness and guarding at right lower quadrant of the abdomen. CBC showed a WBC of 12,700 with a left shift. A CT scan of the abdomen was interpreted as acute appendicitis. HOSPITAL COURSE: The patient was admitted to hospital and immediately underwent laparoscopy appendectomy during which severely inflamed acute appendicitis was encountered. Postoperatively, the patient was doing fine except that she had nausea and occasional vomiting. Her WBC immediately postoperatively was high, was 13,000 and it went up to 14,000, but then gradually started reducing. The patient did not have bowel movement. She did not have the bowel sounds and she denied any abdominal pain. Besides that, she had , which it seemed that she did not have before the surgery. So, she was kept NPO and attempt was made for bowel movement. A KUB was obtained, which was reported as no acute changes. reported that the small bowel was empty and the large bowel had large amount of gas. The third day after the surgery, the patient was passing gas, but again she could not tolerate the liquid diet and she had vomiting. Finally, on 10/30/2017, another CT scan of the abdomen was obtained, which showed incarceration of ventral hernia with small bowel obstruction. The patient immediately underwent ventral herniorrhaphy and release of the obstruction. Two days after the surgery, the patient had bowel movement and she was tolerating the diet without any vomiting. At this time, she is afebrile, tolerating her diet. She has had four bowel movements. There is no abdominal pain and the WBC was normal. Her blood pressure is normal. So, at this time she will be discharged to home to be followed in my office in 1 week. CONDITION: Condition of the patient at the time of discharge is improved. FOLLOWUP: Follow up in my office in one week. DISCHARGE MEDICATIONS: None. DIET: The patient has been instructed about her diet. ACTIVITY: . Rajni Leone M.D. DR: JILLIAN JOB#: [id number] CC:
== END 2017-10-30 17:06 | disposition home or self-care (01) | DRG 225 ==
LOC: EMR 11:03 → SUR 16:45 → 4W 16:45 → UNDOADMIN 16:45 → 3E 16:46 → EDBEDREQ 17:36 → EDBEDREQSVC 17:36 → 2E 10-25 19:10 → 3E 10-26 16:04
PROC: 0DTJ4ZZ Resection of Appendix, Percutaneous Endoscopic Approach (ICD-10-PCS; principal; 2017-10-21 18:30)
PROC: 0WQF0ZZ Repair Abdominal Wall, Open Approach (ICD-10-PCS; 2017-10-27)
DX: K35.80 Unspecified acute appendicitis (principal); K43.6 Other and unspecified ventral hernia with obstruction, without gangrene; I10 Essential (primary) hypertension; N39.0 Urinary tract infection, site not specified; E87.6 Hypokalemia; D64.9 Anemia, unspecified; R11.2 Nausea with vomiting, unspecified
CPT/HCPCS: 36415; 74018; 74176; 74177; 80048; 80053; 80061; 81003; 81025; 82150; 83690; 83735; 83880; 84100; 84550; 85007; 85025; 85610; 85730; 86140; 86850; 86900; 86901; 93005; 94003; 94150; 99285; C9399; J2250; J2405; J2710; J2765; J8499